=== PATIENT | female | born 1955 | race Caucasian/White ===

== ENCOUNTER → 2016-11-05 | Outpatient (CLI) | payer OTHER ==
[~2016-11-05] MED LIST: ASPI81TA28 PO; CALC500C3 PO; DICL-201 PO; EPP3/2 IM; ESOM20CA PO; ESTR0.5T3 PO; FLUT0.0529 NAE; HYDR-5688 PO; IBUP-103 PO; LOSA1TAB PO
--- NOTE | 2016-11-05 15:47 | MAMMOGRAPHY REPORT ---
UNILATERAL RIGHT DIGITAL DIAGNOSTIC MAMMOGRAM: 11/05/2016 CLINICAL HISTORY: 61-year-old woman called back from screening mammography for grouped microcalcific ations in the upper outer quadrant of the right breast. TECHNIQUE: Spot magnification right CC and ML views were obtained. COMPARISON: Comparison is made to exams dated: 10/23/2016 mammogram, 10/05/2015 mammogram, 4 mammogram, 09/08/2013 mammogram, 09/06/2012 mammogram, and 09/01/2011 mammogram - [facility]. BREAST COMPOSITION: There are scattered areas of fibroglandular density in the right breast. FINDINGS: There is a 4.2 mm grouping of faint amorphous microcalcifications in the upper outer midd le one third of the right breast. When comparing to prior available mammograms, these were not ruth rly identified on the 2014, 2013 or prior mammograms and they are therefore indeterminate. Definiti ve characterization with tissue sampling is recommended. No obvious associated mass or architectura l distortion. IMPRESSION: ACR BI-RADS CATEGORY 4B: INTERMEDIATE SUSPICION FOR MALIGNANCY Stereotactic guided biopsy is recommended for a faint 4 mm grouping of amorphous microcalcifications in the upper outer middle one third of the right breast. These results and recommendations were discussed with the patient at the time of the exam. She tent atively scheduled the biopsy prior to leaving our department. Approximately 10% of breast cancers are not detected with mammography. A negative mammographic repor t should not delay biopsy if a clinically suggestive mass is present. Coco Chavira M.D. ay/:11/05/2016 13:33:39 Cleaner [employer] Presser: Jenni LYNN)(Anthony), [facility] letter sent: Abnormal 4/5 BI-RADS Code: ACR BI-RADS Category 4B: Intermediate Suspicion For Malignancy
== END | disposition home or self-care (01) ==
LOC: C.MAMM 12:55
PROVIDERS: ATTEND Obstetrics & Gynecology
DX: R92.0 Mammographic microcalcification found on diagnostic imaging of breast (principal)

== ENCOUNTER → 2016-11-19 | Outpatient (CLI) | payer OTHER ==
--- NOTE | 2016-11-19 09:36 | Discharge Instructions ---
Discharge Instructions Procedure Procedure Date: Nov 19, 2016. Reason for visit: Right Calcs. Discharge Discharge Date: Nov 19, 2016. Discharge Diagnosis: status post breast biopsy Instructions Activity Recommendations: Additional Limitations (see below) Return to School/Work: no limitations Recommended Home Diet: No Limitations Provider Instructions: ACTIVITY RECOMMENDATIONS: * No lifting, pushing, pulling or exercising the affected side for three days. RETURN TO SCHOOL/WORK: * You may return to work/school after the procedure, but do not perform any strenuous activities for 24 to 48 hours. MEDICATIONS: * Tylenol (two 325 mg) every four to six hours if needed for mild pain (if not allergic to Tylenol). DIET: * Resume previous diet. SPECIAL CARE INSTRUCTIONS: * Keep biopsy site dry for 24 hours. May shower after 24 hours, but do not soak (bathe) incision. * May remove Tegaderm (plastic patch) tomorrow AFTER showering. * Leave the steri-strips on for one week. Allow the steri-strips to fall off by themselves. If not off after one week, you may remove them. You may place a Bandaid crosswise over the strips, if desired. * Apply ice 10 minutes on and 10 minutes off as needed. * Wear a bra at bedtime to sleep more comfortably for 2-3 days. * Your referring physician should have the results after approximately 5 to 7 business days. * Call for unusual bleeding, fever, drainage, etc or if you have any questions call during normal business hours or after hours call Dr Hedrick, [phone]. FOLLOW UP VISIT: Follow-up with Referring Physician as scheduled. Allergies Coded Allergies: CI Pigment Blue 63 (Unverified Allergy, Intermediate, unknown, 08/01/16) Cefuroxime (Unverified Allergy, Intermediate, unknown, 08/01/16) Duloxetine (Unverified Allergy, Intermediate, unknown, 08/01/16) Pravastatin (Unverified Allergy, Intermediate, muscle pain, 08/01/16) Codeine (Verified Allergy, Unknown, 08/01/16) Latex (Verified Allergy, Unknown, 08/01/16) Morphine (Unverified Allergy, Unknown, severe n/v, 08/01/16) Sulfa Drugs (Verified Allergy, Unknown, RASH, 08/01/16) Metoclopramide (Verified Adverse Reaction, Unknown, SEVERE MUSCLE SORENESS , 08/01/16) Uncoded Allergies: BEE STINGS (Allergy, Severe, ANAPHYLAXIS, 05/14/15) Guillermo Bartlett Recommendations: Call your doctor if: * Temperature above 101 degrees * Pain not relieved by pain medicine ordered * There is increased drainage or redness from any incision * You have any unanswered questions or concerns. Your Doctors Instructions noted above were prepared by provider Ramandeep Hedrick. Patient Signature Section: Patient Instructions Signature Page Kelley Witt Patient (or Guardian) Signature/Date: I have read and understand the instructions given to me by my caregivers. Caregiver/RN/Doctor Signature/Date: The above-named patient and/or guardian has received patient instructions on this date. + Original Patient Signature Page (only) stays with chart. Please make copy for patient.
--- NOTE | 2016-11-19 14:25 | MAMMOGRAPHY REPORT ---
UNILATERAL RIGHT DIGITAL DIAGNOSTIC MAMMOGRAM: 11/19/2016 CLINICAL HISTORY: Status post stereotactic biopsy of right upper-outer quadrant calcifications. TECHNIQUE: Postprocedural right CC and ML views were obtained. COMPARISON: Comparison is made to exams dated: 10/23/2016 mammogram, 10/05/2015 mammogram, 4 mammogram, 09/08/2013 mammogram, 09/06/2012 mammogram, and 09/01/2011 mammogram - [facility]. BREAST COMPOSITION: There are scattered areas of fibroglandular density in the right breast. FINDINGS: A new biopsy marker clip is seen at the site of the biopsied calcifications in the right upper outer quadrant. No significant postbiopsy hematoma is seen. IMPRESSION: POST PROCEDURE IMAGING FOR MARKER PLACEMENT New biopsy marker clip status post stereotactic biopsy of right upper outer quadrant calcifications. Pathology results are pending. Approximately 10% of breast cancers are not detected with mammography. A negative mammographic repor t should not delay biopsy if a clinically suggestive mass is present. Ramandeep Hedrick M.D. ah/:11/19/2016 09:46:12 Lane Attendant: Elle LYNN)(Anthony), [facility] BI-RADS Code: Post Procedure Imaging For Marker Placement
--- NOTE | 2016-11-19 14:25 | MAMMOGRAPHY REPORT ---
STEREOTACTIC GUIDED BIOPSY RIGHT BREAST: 11/19/2016 CLINICAL HISTORY: Indeterminate calcifications in the right upper outer quadrant. PATIENT CONSENT: The procedure, risks, benefits, and alternatives of stereotactic biopsy with clip p lacement were discussed with the patient, and verbal and written consent was obtained. A timeout wa s performed immediately prior to the procedure. PROCEDURE DESCRIPTION: With stereotactic guidance, aseptic technique, and lidocaine as a local anest hetic (1% lidocaine to anesthetize the skin and 1% lidocaine with epinephrine to anesthetize the andrez per tissues), the area of concern was sampled multiple times with a 9-gauge vacuum-assisted biopsy n eedle ([employer] Eviva). The path of approach was craniocaudal. The specimen radiograph demonstrates c alcifications to be present in the samples. A metallic marker clip was placed at the biopsy site. This was confirmed on postprocedure mammograms. Direct pressure was applied at the biopsy site and hemostasis was readily achieved. The patient tolerated the procedure without complication. She was given wound care instructions. COMPARISON: Comparison is made to exams dated: 11/05/2016 mammogram, 10/23/2016 mammogram, 10/05/2015 mammogram, 09/12/2014 mammogram, 09/08/2013 mammogram, and 09/06/2012 mammogram - [facility]. IMPRESSION: STEREOTACTIC GUIDED BIOPSY Stereotactic biopsy of indeterminate calcifications in the right upper outer quadrant, with clip john paul cement. The patient will receive pathology results from her referring physician. Ramandeep Hedrick M.D. /:11/19/2016 09:37:30 [employer] Lieutenant: Elle LYNN)(Anthony), [facility]
== END | disposition home or self-care (01) ==
LOC: C.MAMM 08:54
PROVIDERS: ATTEND Obstetrics & Gynecology
DX: N60.11 Diffuse cystic mastopathy of right breast (principal); R92.1 Mammographic calcification found on diagnostic imaging of breast

== ENCOUNTER → 2017-04-02 | Outpatient (CLI) | payer OTHER ==
[~2017-04-02] MED LIST changes: -HYDR-5688 PO
--- NOTE | 2017-04-02 13:50 | DIAGNOSTIC IMAGING REPORT ---
CT SCAN OF LUMBAR SPINE WITHOUT IV CONTRAST CLINICAL HISTORY: Disc herniation. Low back pain. Recent fall. COMPARISON STUDY: MRI of lumbar spine dated 09/15/2013 TECHNIQUE: CT scan of the lumbar spine is performed from the lower thoracic spine to the sacrum. Images are reviewed in the axial, sagittal, and coronal planes. IV contrast was not administered for this examination. CT DOSE: 869.06 mGy.cm FINDINGS: The skeletal structures are osteopenic. There is no evidence of fracture or malalignment. Vertebral body height and alignment are maintained throughout the lumbar spine. Tiny anterior osteophytes are seen throughout. The transverse and spinous processes are intact. There is no evidence of spondylolysis. No lytic or blastic lesions are seen. There is mild disc space narrowing at L4-L5. No large disc herniation is seen. There is a posterior disc bulge at L4-L5. This likely contributes to acquired compromise of the central canal. Tiny posterior disc bulges are also identified at L3-L4 and L5-S1. No significant facet arthropathy is identified. The visualized sacrum and bony pelvis appear intact. Mild sclerotic degenerative change is noted in the sacroiliac joints. The paraspinous soft tissues are within normal limits. The partially imaged retroperitoneal structures are grossly unremarkable but incompletely evaluated. IMPRESSION: 1. There is no evidence of fracture or malalignment involving the lumbosacral spine. 2. No large disc herniation is identified. 3. There is a broad-based posterior disc bulge at L4-L5 which likely contributes to acquired compromise of the central canal. This is likely similar to the 09/15/2013 MRI. Dictated: 04/02/2017 1:12 PM Transcribed: 04/02/2017 1:50 PM JULIAN_Toro Electronically signed by: Meliton Escoto M.D. 04/02/2017 2:20 PM Dictated Date/Time: 04/02/2017 1:12 PM
== END | disposition home or self-care (01) ==
LOC: C.CTS 12:51
PROVIDERS: ATTEND Orthopaedic Surgery Orthopaedic Surgery of the Spine
DX: M51.26 Other intervertebral disc displacement, lumbar region (principal)

== ENCOUNTER → 2017-05-07 | Outpatient (CLI) | payer OTHER ==
--- NOTE | 2017-05-07 09:56 | DIAGNOSTIC IMAGING REPORT ---
MRI OF THE LEFT SHOULDER CLINICAL HISTORY: 62-year-old female with left shoulder pain, clinical concern for rotator cuff tear. TECHNIQUE: Multisequence, multiplanar MR imaging of the left shoulder was performed without the use of intravenous contrast. COMPARISON: None. FINDINGS: Osseous structures: No bone marrow edema. Rotator cuff: Vague increased signal in less than 50% of the thickness of the anterior aspect of the infraspinatus tendon at the footplate that approaches the articular surface, likely tendinopathy. The supraspinatus tendon is preserved. Cystic change noted in the humeral head medial to the insertion site of the infraspinatus. Teres minor and subscapularis tendons intact. No subacromial or subdeltoid bursal fluid. Biceps tendon: Long head of the biceps normal in signal intensity and position within the bicipital groove. Normal origin at the supraglenoid tubercle. Labrum: The anterior superior labrum appears diminutive with relatively thick middle glenohumeral ligament suggestive of a Isacc complex versus chronic degeneration. Shoulder joint: No joint effusion. Articular cartilage maintained. Acromioclavicular joint: Normal. Soft tissues: Normal muscle bulk and signal intensity. No muscle atrophy. IMPRESSION: 1. Mild tendinopathy of the infraspinatus tendon at the foot plate. No evidence of full-thickness rotator cuff tear. Electronically signed by: Marco A Reaves 05/07/2017 9:54 AM Dictated Date/Time: 05/07/2017 9:13 AM
== END | disposition home or self-care (01) ==
LOC: C.MRIBC 07:55
PROVIDERS: ATTEND Orthopaedic Surgery
DX: M25.512 Pain in left shoulder (principal)

== ENCOUNTER → 2017-06-11 | Outpatient (CLI) | payer OTHER ==
--- NOTE | 2017-06-11 14:36 | DIAGNOSTIC IMAGING REPORT ---
MRI LUMBAR SPINE W/O CONTRAST CLINICAL HISTORY: Low back pain with bilateral leg radiculopathy. Trauma. TECHNIQUE: Sagittal and axial T1, T2 and STIR images were obtained. COMPARISON STUDY: CT scan dated 04/02/2017, MRI dated 09/15/2013 OBSERVATIONS: The vertebral bodies and posterior elements appear intact. There is no abnormal bony signal present to suggest a marrow replacement process. L1-2: No disc protrusions or extrusions. No evidence of spinal canal or neural foraminal compromise. L2-3: No disc protrusions or extrusions. No evidence of spinal canal or neural foraminal compromise. L3-4: No disc protrusions or extrusions. No evidence of spinal canal or neural foraminal compromise. L4-5: There is a very small broad-based central disc protrusion. Post laminectomy changes are visualized. There is no significant spinal or foraminal stenosis L5-S1: No disc protrusions or extrusions. No evidence of spinal canal or neural foraminal compromise. The conus medullaris and cauda equina appear normal. IMPRESSION: 1. Very small broad-based central disc protrusion at the L4-5 level 2. Interval posterior laminectomy at the L4-5 level. 3. No evidence of significant spinal or foraminal stenosis. Electronically signed by: Mendoza Dominguez M.D. 06/11/2017 2:35 PM Dictated Date/Time: 06/11/2017 2:30 PM
== END | disposition home or self-care (01) ==
LOC: C.MRI 13:31
PROVIDERS: ATTEND Orthopaedic Surgery Orthopaedic Surgery of the Spine
DX: M48.06 Spinal stenosis, lumbar region (principal); M51.26 Other intervertebral disc displacement, lumbar region

== ENCOUNTER → 2017-07-16 | Outpatient (CLI) | payer OTHER ==
--- NOTE | 2017-07-16 11:02 | DIAGNOSTIC IMAGING REPORT ---
RIGHT FOOT MIN 3 VIEWS ROUTINE CLINICAL HISTORY: 62 years-old Female presenting with ACUTE FOOT PAIN RIGHT Right. TECHNIQUE: Frontal, oblique, and lateral views the right foot were obtained. COMPARISON: 08/20/2016. FINDINGS: Os peroneum and accessory navicular noted. No acute fracture or malalignment. Regional soft tissues within normal limits. Prominent bone spur at the inferior calcaneus. No other significant degenerative changes evident. IMPRESSION: 1. No acute osseous injury. 2. Prominent enthesophyte at the origin of the plantar fascia. Electronically signed by: Marco A Reaves M.D. 07/16/2017 11:01 AM Dictated Date/Time: 07/16/2017 10:59 AM
--- NOTE | 2017-07-16 11:05 | DIAGNOSTIC IMAGING REPORT ---
RIGHT ANKLE MIN 3 VIEWS ROUTINE CLINICAL HISTORY: Right ankle pain. COMPARISON: Right foot radiographs August 20, 2016. FINDINGS: Alignment of the right ankle is anatomic. There is no fracture or suspicious lesion. Talar dome is intact. There is moderate posterior and plantar calcaneal spurring. IMPRESSION: 1. No acute fracture or dislocation of the right ankle. 2. Moderate posterior and plantar calcaneal spurring. Electronically signed by: Dontrell Sumner M.D. 07/16/2017 11:03 AM Dictated Date/Time: 07/16/2017 11:01 AM
== END | disposition home or self-care (01) ==
LOC: C.RAD1850 10:23
PROVIDERS: ATTEND Internal Medicine
DX: M79.671 Pain in right foot (principal); M77.31 Calcaneal spur, right foot

== ENCOUNTER → 2017-09-10 | Outpatient (CLI) | payer OTHER ==
--- NOTE | 2017-09-10 15:57 | DIAGNOSTIC IMAGING REPORT ---
LEFT UPPER ARM MRI CLINICAL HISTORY: BICEP STRAIN, LEFTarm pain. COMPARISON STUDY: Left humerus 09/02/2017. Left shoulder MRI 05/07/2017. FINDINGS: Normal marrow signal intensity seen within the left humerus. No fracture or dislocation. Normal signal intensity within the soft tissues of the left upper arm. No edema to suggest an acute traumatic process. The proximal and distal biceps tendons appear to be normal in course, caliber, and signal intensity. IMPRESSION: No acute traumatic process within the left upper arm. Specifically, the biceps tendons appear intact. Electronically signed by: Marcial Lopez M.D. 09/10/2017 3:55 PM Dictated Date/Time: 09/10/2017 3:51 PM
== END | disposition home or self-care (01) ==
LOC: C.MRIBC 14:25
PROVIDERS: ATTEND Orthopaedic Surgery
DX: S46.212A Strain of muscle, fascia and tendon of other parts of biceps, left arm, initial encounter (principal); X58.XXXA Exposure to other specified factors, initial encounter

== ENCOUNTER → 2017-10-27 | Outpatient (CLI) | payer OTHER | END | disposition home or self-care (01) | LOC: C.LABBFT 14:27 | PROVIDERS: ATTEND Internal Medicine | DX: R35.0 Frequency of micturition (principal) ==

== ENCOUNTER → 2017-11-10 | Outpatient (CLI) | payer OTHER ==
--- NOTE | 2017-11-11 15:29 | MAMMOGRAPHY REPORT ---
BILATERAL DIGITAL SCREENING MAMMOGRAM TOMOSYNTHESIS WITH CAD: 11/10/2017 CLINICAL HISTORY: Routine screening. Patient has no complaints. TECHNIQUE: Breast tomosynthesis in addition to standard 2D mammography was performed. Current study was also evaluated with a Computer Aided Detection (CAD) system. COMPARISON: Comparison is made to exams dated: 11/05/2016 mammogram, 10/23/2016 mammogram, 10/05/2015 m ammogram, 09/12/2014 mammogram, 09/08/2013 mammogram, and 09/06/2012 mammogram - [facility]. BREAST COMPOSITION: There are scattered areas of fibroglandular density in both breasts. FINDINGS: No new suspicious mass, architectural distortion or cluster of microcalcifications is seen . There is a stable biopsy marker clip in the 9:00 right breast, denoting the area of prior benign s tereotactic biopsy. IMPRESSION: ACR BI-RADS CATEGORY 1: NEGATIVE There is no mammographic evidence of malignancy. A 1 year screening mammogram is recommended. The pa tient will receive written notification of the results. Approximately 10% of breast cancers are not detected with mammography. A negative mammographic report should not delay biopsy if a clinically suggestive mass is present. Coco Chavira M.D. ay/:11/10/2017 15:42:53 Hospital Administrator: Lauren LYNN)(M), [facility] letter sent: Normal 1/2 BI-RADS Code: ACR BI-RADS Category 1: Negative
== END | disposition home or self-care (01) ==
LOC: C.MAMM 10:46
PROVIDERS: ATTEND Obstetrics & Gynecology
DX: Z12.31 Encounter for screening mammogram for malignant neoplasm of breast (principal)

== ENCOUNTER → 2017-12-23 | Outpatient (CLI) | payer OTHER | END | disposition home or self-care (01) | LOC: C.LABSPEC 18:25 | PROVIDERS: ATTEND Internal Medicine | DX: R30.0 Dysuria (principal) ==

== ENCOUNTER → 2017-12-24 | Outpatient (CLI) | payer OTHER ==
--- NOTE | 2017-12-24 10:58 | DIAGNOSTIC IMAGING REPORT ---
KUB CLINICAL HISTORY: R10.9 Flank [id number] pain COMPARISON STUDY: No previous studies for comparison. FINDINGS: The soft tissues, psoas shadows, renal outlines and intestinal gas pattern appear normal. There is no evidence for bowel obstruction. No abnormal abdominal calcifications are seen. Several paravertebral and soft tissue pelvic vascular calcifications are present. Nonobstructive bowel pattern. Prior cholecystectomy. IMPRESSION: No acute process. The above report was generated using voice recognition software. It may contain grammatical, syntax or spelling errors. Electronically signed by: Saw Fox M.D. 12/24/2017 10:56 AM Dictated Date/Time: 12/24/2017 10:56 AM
== END | disposition home or self-care (01) ==
LOC: C.RAD1850 10:39
PROVIDERS: ATTEND Physician Assistant Medical
DX: R10.9 Unspecified abdominal pain (principal)

== ENCOUNTER → 2017-12-31 | Outpatient (CLI) | payer OTHER | END | disposition home or self-care (01) | LOC: C.PAPS 09:17 | PROVIDERS: ATTEND Obstetrics & Gynecology | DX: Z12.4 Encounter for screening for malignant neoplasm of cervix (principal) ==

== ENCOUNTER → 2018-03-05 | Day surgery (SDC) | payer OTHER ==
[2018-01-28 10:51] VITALS: BMI 31.0
--- NOTE | 2018-01-28 11:38 | PAT Medication Instructions ---
Service Date Jan 28, 2018. Current Home Medication List Albuterol Hfa (Ventolin Hfa), 2 PUFFS INH Q6H PRN for PRN Aspirin (Aspirin Ec), 81 MG PO DAILY Calcium Carbonate (Tums), 1 TAB PO HS Epinephrine (Epipen), 0.3 MG IM UD Esomeprazole Magnesium (Nexium), 20 MG PO QPM Estradiol (Estradiol), 1 TAB PO DAILY Fluticasone Propionate (Nasal) (Flonase Allergy Relief), 2 SPRAYS INTNAS PRN Ibuprofen Tab (Advil), 400 MG PO PRN Losartan Potassium (Cozaar), 50 MG PO QPM Naproxen (Aleve), 440 MG PO PRN [Estriadiol Cream], 1 DOSE TOP PRN Medication Instructions For Your Scheduled Surgery -Continue as directed: Epinephrine (Epipen), 0.3 MG IM UD -Contact your surgeon for instructions for: Ibuprofen Tab (Advil), 400 MG PO PRN Naproxen (Aleve), 440 MG PO PRN Aspirin (Aspirin Ec), 81 MG PO DAILY - Hold the following medications 24 hours prior to surgery: [Estriadiol Cream], 1 DOSE TOP PRN Losartan Potassium (Cozaar), 50 MG PO QPM - Take the following medications the morning of surgery with a sip of water: Albuterol Hfa (Ventolin Hfa), 2 PUFFS INH Q6H PRN for PRN (if needed, and bring it with you to the hospital) Fluticasone Propionate (Nasal) (Flonase Allergy Relief), 2 SPRAYS INTNAS PRN ( if needed) - Take the following medications as scheduled the night before surgery: Albuterol Hfa (Ventolin Hfa), 2 PUFFS INH Q6H PRN for PRN (if needed) Calcium Carbonate (Tums), 1 TAB PO HS Esomeprazole Magnesium (Nexium), 20 MG PO QPM Fluticasone Propionate (Nasal) (Flonase Allergy Relief), 2 SPRAYS INTNAS PRN ( if needed) Estradiol (Estradiol), 1 TAB PO DAILY If you have any questions please call us at [phone] or [phone] or [phone]
[2018-01-28 12:35] LABS: BASO % 0.4 %; BASO ABS # 0.03 K/uL (0-0.2); EOS % 1.2 %; EOS ABS # 0.09 K/uL (0-0.5); HEMATOCRIT 40.6 % (37-47); HEMOGLOBIN 13.9 g/dL (12.0-16.0); IG# 0.03 K/uL (0.00-0.02); LYMPH % 27.4 %; LYMPH ABS # 2.13 K/uL (1.2-3.4); MEAN CELL VOLUME 92.1 fL (80-100); MEAN CORPUSCULAR HEMOGLOBIN 31.5 pg (25-34); MEAN CORPUSCULAR HGB CONC 34.2 g/dl (32-36); MEAN PLATELET VOLUME 9.9 fL (7.4-10.4); MONO % 6.3 %; MONO ABS # 0.49 K/uL (0.11-0.59); NEUT % 64.3 %; PLATELET COUNT 259 K/uL (130-400); RED CELL DISTRIBUTION WIDTH CV 13.4 % (11.5-14.5); RED CELL DISTRIBUTION WIDTH SD 45.1 fL (36.4-46.3); WHITE BLOOD COUNT 7.77 K/uL (4.8-10.8)
[2018-01-28 12:43] LABS: PTT PATIENT 24.1 SECONDS (21.0-31.0)
[2018-01-28 13:39] LABS: ALBUMIN 3.6 gm/dl (3.4-5.0); CALCIUM 9.1 mg/dl (8.5-10.1); CREATININE 0.77 mg/dl (0.60-1.20); POTASSIUM 3.9 mmol/L (3.5-5.1)
--- NOTE | 2018-03-04 15:34 | History and Physical ---
History & Physical Date March 04, 2018. Chief Complaint right ankle pain History of Present Illness The patient is a 63 year old female with complaints of chronic right lateral ankle pain. She was treated conservatively for peroneal tendinitis and sural nerve neuropraxia. She failed conservative management and is now being set up for surgical tx. Past Medical/Surgical History Medical Problems: (1) Bronchitis (2) Emphysema of lung (3) Pneumonia (4) HTN (5) High cholesterol (6) Acid Reflux (7) Obesity Social Hx: Denies alcohol and tobacco use Past surgical hx: Cholecystectomy, hernia repair, left knee surgery, sinus surgery, Hysterectomy Allergies Coded Allergies: CI Pigment Blue 63 (Unverified Allergy, Intermediate, unknown, 01/28/18) Cefuroxime (Unverified Allergy, Intermediate, unknown, 01/28/18) Duloxetine (Unverified Allergy, Intermediate, unknown, 01/28/18) Pravastatin (Unverified Allergy, Intermediate, muscle pain, 01/28/18) Codeine (Verified Allergy, Unknown, SHORTNESS OF BREATH, 01/28/18) Latex (Verified Allergy, Unknown, SHORTNESS OF BREATH,MOUTH GOT RED WITH DENTAL WORK/GLOVES, 01/28/18) Morphine (Unverified Allergy, Unknown, severe n/v, 01/28/18) Sulfa Drugs (Verified Allergy, Unknown, RASH, 01/28/18) Tetanus Toxoid (Verified Allergy, Unknown, LUMP ON ARM AFTER INJECTION, ) [place] (Verified Allergy, Unknown, ANAPHYLAXIS, 01/28/18) Metoclopramide (Verified Adverse Reaction, Unknown, SEVERE MUSCLE SORENESS , 01/28/18) Home Medications Scheduled Aspirin (Aspirin Ec), 81 MG PO DAILY Calcium Carbonate (Tums), 1 TAB PO HS Epinephrine (Epipen), 0.3 MG IM UD Esomeprazole Magnesium (Nexium), 20 MG PO QPM Estradiol (Estradiol), 1 TAB PO DAILY Fluticasone Propionate (Nasal) (Flonase Allergy Relief), 2 SPRAYS INTNAS PRN Ibuprofen Tab (Advil), 400 MG PO PRN Losartan Potassium (Cozaar), 50 MG PO QPM Naproxen (Aleve), 440 MG PO PRN [Estriadiol Cream], 1 DOSE TOP PRN Scheduled PRN Albuterol Hfa (Ventolin Hfa), 2 PUFFS INH Q6H PRN for PRN Physical Examination Skin: warm/dry, no rash Eyes: normal inspection ENT: normal ENT inspection Head: normocephalic Neck: supple, no adenopathy, trachea midline Respiratory/Chest: lungs clear, normal breath sounds, no respiratory distress Cardiovascular: regular rate, rhythm Abdomen / GI: normal bowel sounds, non tender Extremities: + pertinent finding (Right ankle: Tender along the peroneal tendons and along the sural nerve with radiating pain to the lateral ankle. 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 All potential risks, benefits, complications, alternatives, and rehab have been discussed with the patient and she wishes to proceed. She will be scheduled for 5 with probable ASA 81 mg BID x 2-3 wks for DVT prophylaxis.
[~2018-03-05] VITALS: Ht 167.6 cm; Wt 88.1 kg
[~2018-03-05] MED LIST changes: +ATROPINE SULFATE 0.1 MG/ML 5ML SYR IV PRN; +BACITRACIN 50000 UNIT VIAL ONE; +BUPIVACAINE 0.25% 30 ML VIAL ONE; +BUPIVACAINE 0.5 % 5 MG/1 ML PF 10ML VIAL ONE; +CEFAZOLIN SOD 2000MG/15 ML IV PUSH ONE; +DEXAMETHASONE SOD INJ 4 MG/ML VIAL ONE; -DICL-201 PO; +EpHEDrine SULFATE INJ 50 MG/ML AMP IV PRN; +EpINEphrine INJ 1MG/ML AMP 1 MG/ML AMP ONE; +FENTANYL CITRATE INJ 50 MCG/1 ML 2 ML VIAL IV PRN; +FENTANYL CITRATE INJ 50 MCG/1 ML 2 ML VIAL ONE; -FLUT0.0529 NAE; +FLUT0.15 INTNAS; +HYDR-5688 PO; +HYDROCODONE/ACETAMIN 5/325MG TAB PO PRN; +HYDROmorphone INJ 2 MG/ML SYR/VIAL IV PRN; +LACTATED RINGER'S 1000ML 1,000 ML IV SCH; +MIDAZOLAM HCL 1 MG/ML 2ML VIAL ONE; +NAPR1TAB9 PO; +NURSING VERBAL MED ORDER ONE; +ONDANSETRON INJ 2 MG/ML 2 ML VIAL IV PRN; +PROMETHAZINE HCL INJ 6.25 MG in SODIUM CHLORIDE 0.9% 50ML 50 ML IV PRN; +SODIUM CHLORIDE 0.9% INJ 10 ML VIAL ONE; +VNTHFA/IN INH; +[UNRECOGNIZED DRUG - OTHER] TOP
[2018-03-05 06:53] VITALS: BP 166/96; PULSE 79; TEMP 36.6; O2SAT 95; Ht 167.6 cm; Wt 88.1 kg
--- NOTE | 2018-03-05 07:13 | History & Physical Bridge Note ---
H&P Re-Evaluation Bridge Note: I have examined the patient, reviewed the History & Physical and in the interval since the performance of the History & Physical I have noted the following changes of clinical significance: No changes noted
--- NOTE | 2018-03-05 09:20 | [facility] Post Operative Brief Note ---
Immediate Operative Summary Operative Date March 05, 2018. Pre-Operative Diagnosis Right ankle sural neuropraxia, Right peroneal tendon tenosynovitis Post-Operative Diagnosis Right ankle sural nerve compressive neuropathy, Right peroneal tendon tenosynovitis Procedure(s) Performed 1. Right Ankle Open Decompression and Neurolysis Sural Nerve, 2. Open Debridement and Tenosynovectomy Peroneal tendons Surgeon Dr. Yvonne Hanna Break Up Worker Surgeon(s) Wellington Pichardo PA-C Estimated Blood Loss 1 cc Findings Consistent with Post-Op Diagnosis Specimens none per surgeon Drains None Anesthesia Type MAC Spinal Regional Complication(s) none Disposition Accompanied Pt To Recover: no Disposition: Recovery Room / PACU
--- NOTE | 2018-03-05 09:53 | Discharge Instructions ---
Discharge Instructions Date of Service March 05, 2018. Visit Reason for Visit: Right Ankle Sural Nerve, Right Ankle Tenosynovitis Discharge Discharge Diagnosis / Problem: Right ankle sural nerve compressive neuropathy, Right peroneal tendon Discharge Goals Goal(s): Decrease discomfort, Improve function Activity Recommendations Activity Limitations: per Instructions/Follow-up section Weightbearing Status: Right non-weightbearing Anesthesia . Post Anesthesia Instructions: If you have had General Anesthesia or IV Sedation: * Do not drive today. * Resume driving when surgeon permits. * Do not make important decisions or sign legal documents today. * Call surgeon for: 1. Temperature elevations greater than 101 degrees F. 2. Uncontrollable pain. 3. Excessive bleeding. 4. Persistent nausea and vomiting. 5. Medication intolerance (nausea, vomiting or rash). * For nausea and vomiting use only clear liquids such as: tea, soda, bouillon until nausea subsides, then gradually increase diet as tolerated. * If you have any concerns or questions, call your surgeon's office. If physician is unavailable and it is an emergency, call 911 or go to the nearest emergency room. . Instructions / Follow-Up Instructions / Follow-Up ACTIVITY RECOMMENDATIONS: Limitations: Nonweightbearing on the right foot until seen back in the office. SPECIAL CARE INSTRUCTIONS: * Some drainage onto the dressing is normal and is no cause for alarm. * Some swelling is natural especially after walking. * When resting, keep your foot elevated above the level of your heart. * Call [facility] if you notice: -Increased drainage -Fever over 101 degrees F -Severe constant pain BANDAGE: * Leave bandage/cast in place unless otherwise directed. * Keep bandage/cast dry at all times. FOLLOW UP VISIT WITH DR. MARTINEZ If appointment is not already scheduled: Please call [facility] after you get home today to schedule a follow-up appointment for 10-[address] Martinez at . Diet Recommendations Recommended Home Diet: resume previous diet Procedures Procedures Performed: 1. Right Ankle Open Decompression and Neurolysis Sural Nerve, 2. Open Debridement and Tenosynovectomy Peroneal tendons Pending Studies Studies pending at discharge: no Medical Emergencies . Who to Call and When: Medical Emergencies: If at any time you feel your situation is an emergency, please call 911 immediately. . Non-Emergent Contact Non-Emergency issues call your: Surgeon Call Non-Emergent contact if: temperature is above 101.5, your pain is not controlled, your pain is worsening, wound has increased drainage, wound has increased redness . . "Provider Documentation" section prepared by Wellington Pichardo. . [place] Drug Monitoring Program Search Results: patient reviewed within database, no issues identified
--- NOTE | 2018-03-05 10:24 | Anesthesiology Progress Note ---
Anesthesia Post Op Note Date & Time March 05, 2018 at 10:23 Vital Signs Pain Intensity: 0 Vital Signs Past 12 Hours Date Time Temp Pulse Resp B/P (MAP) Pulse Ox O2 Delivery O2 Flow Rate FiO2 03/05/18 10:15 36.3 64 16 133/86 100 Room Air 03/05/18 10:05 36.3 69 16 144/76 100 Room Air 03/05/18 09:55 67 16 125/75 100 Oxymask 10 03/05/18 09:45 82 16 153/87 100 Oxymask 10 03/05/18 09:39 36.3 88 16 148/82 97 Oxymask 10 03/05/18 06:53 36.6 79 20 166/96 (119) 95 Room Air Notes Mental Status: alert / awake / arousable, participated in evaluation Pt Amnestic to Procedure: Yes Nausea / Vomiting: adequately controlled Pain: adequately controlled Airway Patency, RR, SpO2: stable & adequate BP & HR: stable & adequate Hydration State: stable & adequate Neuraxial Anesthesia: was administered, sensory block is resolving Anesthetic Complications: no major complications apparent Patient had a headache improved by ibuprofen
--- NOTE | 2018-03-05 12:54 | OPERATIVE REPORT ---
DATE OF OPERATION: 03/05/2018 PREOPERATIVE DIAGNOSES: 1. Right peroneal tenosynovitis of the peroneus longus and the peroneus brevis. 2. 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 POSTOPERATIVE DIAGNOSIS: Same as above. PROCEDURE: 1. Right debridement and tenosynovectomy of the peroneus longus and peroneus brevis tendons. 2. Right sural nerve decompression and neurolysis. SURGEON: Emilio Hanna DO HEALTH SPA MANAGER: Wellington DE JESUS ANESTHESIA: Spinal with popliteal block. SPECIMENS: None. DRAINS: None. COMPLICATIONS: None. BLOOD LOSS: 1 mL. PERTINENT HISTORY: This is a 63-year-old female who had at least 2 falls involving her right leg. After that time, she developed severe pain, numbness and burning along the lateral aspect of her foot and ankle. She had multiple studies performed including EMG nerve conduction study. She attempted and failed conservative management of all sorts including anti-inflammatories, rest, use of a boot brace, use of a lace-up brace, physical therapy, physician directed home exercises, observation, topical creams and anti-inflammatories. She had continued discomfort. Had an MRI and was noted to have a compressive neuropathy of the sural nerve and tenosynovitis of the peroneal tendons. She was then scheduled for surgery as indicated. All potential risks, benefits, complications, alternatives, rehab, potential for incomplete relief of symptoms, need for further surgery, DVT, PE, , persistent pain, swelling, scarring, weakness, neurovascular injury, wound complications were discussed with the patient. The patient decided to proceed with the procedure as indicated. PROCEDURE: The patient was administered a popliteal block and a spinal anesthetic. She was taken to the operative suite, placed supine on the operating room table. After review of the consent and identification of proper operative site, the patient was sedated. A tourniquet was placed high on the right thigh over cast padding. Right lower extremity was then sterilely prepped and draped in usual fashion, elevated and exsanguinated with Esmarch bandage, tourniquet inflated to 350 mmHg. Next, a 15 blade scalpel was used to make an incision over the peroneal tendon sheath proximal to the lateral malleolus extending distally almost to the base of the fifth metatarsal. The incision was deepened through the subcutaneous tissue. Meticulous hemostasis was achieved with cautery. There was noted to be a leash of veins and fibrous tissue overlying the sural nerve. Sural nerve decompression and neurolysis was then performed with tenotomy scissors in removing all soft tissue impingement over the sural nerve from approximately 12 cm proximal to the tip of the lateral malleolus until the base of the fifth metatarsal by bolus use of tenotomy scissors and digital decompression. The nerve was noted to be intact and viable. The impinging veins were cauterized and the main trunk of the peroneal vein was then retracted and protected. The peroneal tendon sheath was then incised with a 15 blade scalpel, revealing the peroneal tendons encased in a significant amount of hypertrophic tenosynovium. At this point, tenosynovectomy was then performed with tenotomy scissors and forceps from both the peroneus longus and peroneus brevis tendons. Tendons were then retracted from the tendon sheath and examined and noted to be intact. There was no tearing of the peroneus longus. There is minor scuffing of the peroneus brevis, this was then debrided with the tenotomy scissor. The tendon was then placed back in the tendon sheath. The wound was copiously irrigated with sterile normal saline. The tendon sheath was then closed using 2-0 Vicryl sutures. The sural nerve was noted to be free with no impingement. The dermis was closed using buried interrupted 3-0 Vicryl and skin was closed using 4-0 nylon sutures. Sterile compressive dressing and bulky splint was applied in neutral dorsiflexion. Once the splint was set, the tourniquet was released. The patient was awakened and taken to recovery in stable condition. I attest to the content of the Intraoperative Record and any orders documented therein. Any exception s are noted below.
[2018-03-05 14:15] VITALS: BP 145/82; PULSE 82; TEMP 36.5; O2SAT 95
== END | disposition home or self-care (01) ==
LOC: C.ACU 06:28
PROVIDERS: ATTEND Orthopaedic Surgery Sports Medicine
DX: M65.871 Other synovitis and tenosynovitis, right ankle and foot (principal); G57.81 Other specified mononeuropathies of right lower limb; J45.909 Unspecified asthma, uncomplicated; I10 Essential (primary) hypertension; Z88.8 Allergy status to other drugs, medicaments and biological substances; Z88.2 Allergy status to sulfonamides; Z88.5 Allergy status to narcotic agent; Z88.7 Allergy status to serum and vaccine; Z91.040 Latex allergy status; Z90.49 Acquired absence of other specified parts of digestive tract; E66.9 Obesity, unspecified; Z98.890 Other specified postprocedural states; Z90.710 Acquired absence of both cervix and uterus; Z79.82 Long term (current) use of aspirin

== ENCOUNTER → 2018-06-15 | Outpatient (CLI) | payer OTHER ==
[~2018-06-15] MED LIST changes: -ATROPINE SULFATE 0.1 MG/ML 5ML SYR IV PRN; -BACITRACIN 50000 UNIT VIAL ONE; -BUPIVACAINE 0.25% 30 ML VIAL ONE; -BUPIVACAINE 0.5 % 5 MG/1 ML PF 10ML VIAL ONE; -CEFAZOLIN SOD 2000MG/15 ML IV PUSH ONE; -DEXAMETHASONE SOD INJ 4 MG/ML VIAL ONE; -EpHEDrine SULFATE INJ 50 MG/ML AMP IV PRN; -EpINEphrine INJ 1MG/ML AMP 1 MG/ML AMP ONE; -FENTANYL CITRATE INJ 50 MCG/1 ML 2 ML VIAL IV PRN; -FENTANYL CITRATE INJ 50 MCG/1 ML 2 ML VIAL ONE; -HYDROCODONE/ACETAMIN 5/325MG TAB PO PRN; -HYDROmorphone INJ 2 MG/ML SYR/VIAL IV PRN; -LACTATED RINGER'S 1000ML 1,000 ML IV SCH; -MIDAZOLAM HCL 1 MG/ML 2ML VIAL ONE; -NURSING VERBAL MED ORDER ONE; -ONDANSETRON INJ 2 MG/ML 2 ML VIAL IV PRN; -PROMETHAZINE HCL INJ 6.25 MG in SODIUM CHLORIDE 0.9% 50ML 50 ML IV PRN; -SODIUM CHLORIDE 0.9% INJ 10 ML VIAL ONE
[2018-06-15 13:00] LABS: BLOOD UREA NITROGEN 12 mg/dl (7-18); CREATININE 0.82 mg/dl (0.60-1.20); GLUCOSE 140 mg/dl (70-99)
[2018-06-15 13:01] LABS: ALBUMIN 3.5 gm/dl (3.4-5.0); ALKALINE PHOSPHATASE 76 U/L (45-117); ALT/SGPT 20 U/L (12-78); AST/SGOT 18 U/L (15-37); CALCIUM 8.7 mg/dl (8.5-10.1); CARBON DIOXIDE 27 mmol/L (21-32); CHOLESTEROL 229 mg/dl (0-200); LDL CHOLESTEROL CALCULATED 157 mg/dl; POTASSIUM 4.2 mmol/L (3.5-5.1); SODIUM 137 mmol/L (136-145); TOTAL PROTEIN 7.1 gm/dl (6.4-8.2)
== END | disposition home or self-care (01) ==
LOC: C.LABBFT 09:44
PROVIDERS: ATTEND Internal Medicine
DX: E11.9 Type 2 diabetes mellitus without complications (principal); Z00.00 Encounter for general adult medical examination without abnormal findings; E78.5 Hyperlipidemia, unspecified; I10 Essential (primary) hypertension; Z11.59 Encounter for screening for other viral diseases

== ENCOUNTER 2022-07-05 14:49 | Observation (INO) ==
[2022-07-05] MEDS ORDERED: NITROGLYCERIN 2% OINTMENT 30GM TUBE EXT STA (15:44)
[2022-07-05] MEDS ORDERED: ASPIRIN CHEW 324 MG PO STA (15:44)
[2022-07-05 15:53] LABS: Basophils # (auto) 0.03 K/uL (0-0.2); Basophils % (auto) 0.4 %; Eosinophils # (auto) 0.07 K/uL (0-0.50); Eosinophils % (auto) 0.8 %; Hematocrit (blood only) 40.2 % (34.1-44.9); Hemoglobin 13.5 g/dl (12.0-16.0); Immature Granulocytes # (auto) 0.04 K/uL (0.00-0.02); Immature Granulocytes % (auto) 0.5 %; Lymphocytes # (auto) 2.62 K/uL (1.2-3.4); Lymphocytes % (auto) 30.9 %; Mean Corpuscular Hemoglobin 32.5 pg (25.0-34.0); Mean Corpuscular Hgb Conc 33.6 g/dL (32.0-36.0); Mean Corpuscular Volume 96.9 fL (80.0-100.0); Mean Platelet Volume 10.1 fL (9.4-12.3); Monocytes # (auto) 0.71 K/uL (0.24-0.82); Monocytes % (auto) 8.4 %; Platelet Count 278 K/uL (130-400); RDW Coefficient of Variation 12.9 % (11.5-14.5); RDW Standard Deviation 46.1 fL (36.4-46.3); Red Blood Count 4.15 M/uL (3.93-5.22); White Blood Count 8.47 K/ul (4.8-10.8)
[2022-07-05 16:06] LABS: D Dimer 500 ug/L FEU (0-500)
[2022-07-05 16:09] LABS: Albumin Globulin Ratio 1.4 (0.9-2); Albumin Level 4.2 gm/dl (3.4-5.0); BUN Creatinine Ratio 14.1 (10-20); Bilirubin,Total 0.5 mg/dl (0.2-1.0); Calcium 9.6 mg/dl (8.5-10.1); Creatinine Clr Calc Pharmacy 68.9 ml/min; Est GFR (African American) 81.6 ml/min; Est GFR (Non-African American) 70.4 ml/min; Potassium 3.7 mmol/L (3.5-5.1); Total Protein 7.2 gm/dl (6.0-8.3)
--- NOTE | 2022-07-05 16:23 | XRay Report ---
XR chest 1V portable HISTORY: Atypical Chest Pain COMPARISON: Chest 12/06/2021. FINDINGS: No pneumothorax. No pleural effusions. The cardiac silhouette remains mildly enlarged. Smal l left basilar linear densities favor subsegmental atelectasis or scarring. Otherwise, no focal lung consolidations to suggest pneumonia. No evidence for pulmonary edema. IMPRESSION: Stable mild cardiomegaly. Otherwise, no acute process within the chest. ACT 112: Negative or not required by law. Electronically signed by: Marcial Lopez M.D. 07/05/2022 4:22 PM
[2022-07-05 17:15] LABS: Troponin I High Sensitivity 3.2 pg/ml (0-14)
[2022-07-05] MEDS ORDERED: ONDANSETRON INJ 2 MG/ML 2 ML VIAL IV STA (17:57)
[2022-07-05] MEDS ORDERED: HYDROmorphone INJ 0.5 MG/0.5 ML SYR IV STA (17:57)
--- NOTE | 2022-07-05 18:00 | History & Physical Report ---
Date of Service July 05, 2022 Assessment & Plan (1) Chest pain: Plan: - Onset around 2 PM this afternoon with radiation down left arm, left face, and back. With associated shortness of breath. - Pain is stabbing, lasts for several seconds. Improved but not resolved with aspirin and nitro, pain subsequently improved with hydromorphone 0.25 - Troponin on admission negative @ 3.2, 2-hour repeat troponin 3.0 - EKG: No acute ST segment changes or T wave inversions on admission - D-dimer negative - Lipase normal - COVID-negative - CXR: No acute findings - CT-C given persistent SOB and concern for potential inhalation injury from working in [employer] - Trend trop overnight, will give GI cocktail to see if it improves her remaining pain. (2) Hypertension: Plan: - Continue losartan/HCTZ combo pill. - BP initially elevated @ 22/92 on presentation, now normotensive Nitropaste and Dilaudid. - Elevated pressures could have contributed to her presenting symptoms. (3) GERD (gastroesophageal reflux disease): Plan: - Continue PPI, switch to Protonix per hospital formulary. - Last EGD 2014 where she required dilation, patient reports she is again having problems swallowing bread requesting another endoscopy. Was to be scheduled as outpatient per PCP. (4) Hormone replacement therapy: Plan: - Continue estrogen therapy. (5) Type 2 diabetes mellitus: Plan: - She is borderline diabetic on low doses of metformin at home. - Hold metformin, Accu-Checks achs with SSI. - A1c in AM; 6.3% in Dec. Plan - MEd/tele for observation. - SCDs for VTE ppx. - Full Code. History of Present Illness Chief Complaint: chest pain and SOB x 1 day Primary Care Provider: Aida Sumner MD Kelley Witt is a 49-year-old female with past medical history significant for diabetes, hyperlipidemia, and IBSpresented today with chest pain. Around 2pm she was walking inside and suddenly got short of breath. Is down, but continued to have chest pain with sharp pain in center of her chest that went to her left back/shoulder. She also had numbness in her left arm down to her fingertips, as well is in the left side of her face. Chest pain did initially come on with exertion, it is coming gone periodically since onset lasting for several seconds at a time and is been present at rest. Indigestion has been worse over the past month or so. She is due to have an EGD done as an outpatient. History of hiatal hernia repaired via Dewayne fundoplication and esophageal dilation. {ain ia 7/10 at its worst but is mostly better after nitro paste and IV Dilaudid inED, although the back/left shoulder pain persists. Patient herself does not have a history of any cardiac disease, but has an extensive family history of cardiac disease, as her father at 43 of a massive heart attack, her mom has had several heart attacks and strokes, and multiple siblings have known heart disease. She had COVID-19 in October and had persistent palpitations, had a stress echo in December 2021 which was normal. Additionally, did get a bad case of poison angel which was treated with steroid cream, did not take pred oral because it makes her very anxious, nervous, and anxious. Allergies Allergy/AdvReac Type Severity Reaction Status Date / Time cefuroxime Allergy Unknown PT DOESN'T Verified 07/05/22 17:02 REMEMBER codeine Allergy Unknown SHORTNESS Verified 07/05/22 17:02 OF BREATH Influenza Virus Vaccines Allergy Unknown Swelling Verified 07/05/22 17:02 of the Eye,rash kiwi Allergy Unknown ITCHING, Verified 07/05/22 17:02 TONGUE AND LIPS SWELL latex Allergy Unknown SHORTNESS Verified 07/05/22 17:02 OF BREATH,MOUTH GOT RED WITH DENTAL WORK/GLOVES Sulfa (Sulfonamide Allergy Unknown RASH Verified 07/05/22 17:02 Antibiotics) tetanus toxoid, adsorbed Allergy Unknown LUMP ON Verified 07/05/22 17:02 ARM AFTER INJECTION metoclopramide AdvReac Unknown SEVERE Verified 07/05/22 17:02 MUSCLE SORENESS morphine AdvReac Unknown severe n/v Verified 07/05/22 17:02 pravastatin AdvReac Unknown muscle pain Verified 07/05/22 17:02 yellow jacket Allergy Unknown Anaphylaxis Uncoded 06/11/22 13:45 Home Medications Medication Instructions Recorded Confirmed Type calcium carbonate 200 mg calcium 200 mg PO HS 09/10/18 07/05/22 History (500 mg) chewable tablet (Tums) esomeprazole magnesium 40 mg 40 mg PO QPM 09/10/18 07/05/22 History capsule,delayed release (Nexium) fluticasone propionate 50 2 spray intranasal QAM 09/10/18 07/05/22 History mcg/actuation nasal spray,suspension (Flonase Allergy Relief) epinephrine 0.3 mg/0.3 mL 0.3 mg subcut UD PRN anaphylaxis 10/22/19 07/05/22 History injection, auto-injector metformin 500 mg tablet 250 mg PO BID #90 tabs 09/06/21 07/05/22 Rx estradiol 0.5 mg tablet 0.5 mg PO QAM 09/12/21 07/05/22 History losartan 50 mg-hydrochlorothiazide 1 tab PO QAM 01/27/22 07/05/22 History 12.5 mg tablet estradiol 0.01% (0.1 mg/gram) 0.25 appful vaginal UD #42.5 grams 05/04/22 07/05/22 Rx vaginal cream esterified 1 tab PO QAM #90 tabs 05/26/22 07/05/22 Rx estrogens-methyltestosterone 1.25 mg-2.5 mg tablet hydroquinone 4 % topical cream 1 applic topical BID 07/05/22 07/05/22 History Past Med/Surg History Medical History Asthma CONTROLLED/ENVIRONMENTAL TRIGGERS Gastroparesis GERD (gastroesophageal reflux disease) History of COVID-19 CLOSE TO 90 DAYS AGO, ? DATE - [place] FAST HEART BEAT, RUNNY NOSE NO CURRENT SYMPTOMS History of pneumothorax AFTER HIATAL HERNIA SX Hormone replacement therapy Hyperlipidemia statin intolerance Hypertension IBS (irritable bowel syndrome) Nausea and vomiting after administration of anesthetic agent HX YRS AGO Rosacea Stenosis of lumbosacral spine HX Type 2 diabetes mellitus BORDERLINE Venous reflux UPCOMING JOSE [facility]ANI[facility]BR[facility] 06 TO DISCUSS TREATMENT OPTIONS Surgical History Difficult airway for intubation H/o awake fiberoptic intubation with her lumbar surgery-PAST 10 YRS-[facility] HAS NOT BEEN INTUBATED SINCE-SPINAL BLOCK WITH FOOT SURGERY H/O left knee surgery History of ankle surgery rt X3 History of back surgery History of cholecystectomy History of colonoscopy History of endoscopy History of eye surgery BLOW OUT FRACTURE RIGHT EYE History of laparotomy FOR RUPTURED ECTOPIC -REMOVAL TUBE AND OVARY History of repair of rotator cuff RX1, LX1 History of right cataract surgery History of sinus surgery History of surgery left bicep repair History of surgery lle - ? History of surgery laparoscopic dewayne fundoplication History of tonsillectomy History of total abdominal hysterectomy and bilateral salpingo-oophorectomy Hx of inguinal hernia surgery (11/22/19) Right Open Direct Inguinal Hernia Repair, Bassini Repair, Lipoma of round ligament Dr. Mcgraw 11-22-19 Family History Brother Family history of reaction to anesthesia pt reports brother had allergic reaction to anesthesia and suffered from stroke after anesthesia Hypertension Stroke Cancer Brother Family history of diabetes mellitus Sister Family history of diabetes mellitus Hypertension Father Myocardial infarction Aunt Breast cancer Grandfather Asthma Mother Cardiac disorder Hypertension Stroke Hearing loss Other Osteoporosis Denies family history of Ovarian cancer Colorectal cancer Social History Smoking Status: Never smoker Second Hand Exposure: No; Hx Alcohol Use: Yes Alcohol type: wine Hx Substance Use: No Preferred Language: Slovak Communication Ability: Effective Visual Impairment: No Limitations Doubler Operator Required: No Beliefs That Will Affect Care: None marital status: Current Living Situation: Spouse Feels Safe at Home: Yes Childhood Exposure to Second-Hand Smoke: No caffeine: Yes Dental Care, Regularly: Yes Seatbelt Use: always Sunscreen Use: Yes Assistive Devices: None Review of Systems Review of Systems: Constitutional: No fever/chills, weakness, fatigue, myalgias, anorexia, night sweats Eyes: No diplopia, no worsening or blurred vision ENT: normal hearing, no trouble swallowing Respiratory: SOB at rest/exertion associated with sharp chest/back pain since this afternoon Cardiovascular: sharp chest pain radiation to left face, left neck, back; no tightness or palpitations Abdomen: Reports indigestion over the past month; no pain, nausea, vomiting, diarrhea or constipation : Denies dysuria, hematuria, increased urgency/frequency, urinary retention Musculoskeletal: No joint pain, calf pain, swelling Neurologic: No weakness, numbness/tingling, or balance problems Psychiatric: No anxiety or depression Skin: No rash or itch Physical Exam Physical Exam: General: awake, alert, no apparent distress Head: Normocephalic, atraumatic ENT: PERRL, EOMI, no pharyngeal exudate, mucous membranes moist Chest: Clear to auscultation, on room air, no adventitious breath sounds Cardiac: Regular rate and rhythm, no murmur, no JVD, normal peripheral pulses, good capillary refill Abdominal: NABS x 4 quadrants, soft, nontender to palpation, no rebound, guarding or tenderness Extremities: Mildly TTP along left shoulder/scapula however this pain is different than the 1 she presented with which is still present; normal inspection, no peripheral edema or erythema, calfs nontender to palpation Psych: Normal mood and affect Neuro: AAO x 3, strength intact bilaterally and rated 5/5, no motor deficits, speech is clear, no peripheral sensory deficits Skin: no rash or erythema Results & Data Results & Data ([facility]) Vital Signs (Past 12 Hours) Vital Signs Temp Pulse Resp BP Pulse Ox O2 Del Method O2 Flow Rate 07/05/22 16:30 65 16 96 07/05/22 16:30 159/82 H 07/05/22 16:00 63 19 95 07/05/22 16:00 141/80 H 07/05/22 15:48 65 20 95 07/05/22 15:48 139/65 07/05/22 15:31 140/75 07/05/22 15:31 61 23 96 07/05/22 15:30 60 20 95 07/05/22 15:30 149/78 H 07/05/22 15:12 160/75 H 07/05/22 15:12 71 25 H 98 07/05/22 15:11 71 22 98 07/05/22 15:36 95 Room Air 0 07/05/22 14:54 36.6 C 70 18 222/92 H 96 Room Air Laboratory Results Abnormal lab results 07/05/22 07/05/22 Range/Units 15:17 15:17 Immature Gran # (Auto) 0.04 H (0.00-0.02) K/uL Glucose 109 H (70-99(Fasting)) mg/dl Diagnostic Findings Chest X-Ray 07/05/22 15:36 XR chest 1V portable HISTORY: Atypical Chest Pain COMPARISON: Chest 12/06/2021. FINDINGS: No pneumothorax. No pleural effusions. The cardiac silhouette remains mildly enlarged. Small left basilar linear densities favor subsegmental atelectasis or scarring. Otherwise, no focal lung consolidations to suggest pneumonia. No evidence for pulmonary edema. IMPRESSION: Stable mild cardiomegaly. Otherwise, no acute process within the chest. ACT 112: Negative or not required by law. Electronically signed by: Marcial Lopez M.D. 07/05/2022 4:22 PM Code Status & VTE Plan Code Status Full Code. Supervising Physician Co-Signing Physician Notes Patient seen and examined, chart reviewed, case discussed with Ceci Hernández, LAILA and I agree with the assessment and plan as above except as otherwise noted Labs and images reviewed Patient seen at bedside with Ceci Hernández. Patient with chest pain shortness of breath as noted above. On exam heart rate is regular, lungs are clear to auscultation bilaterally with good air movement, skin is warm and dry. Posterior scapula is nontender to palpation, her pain is not able to be rib produced in the shoulder blade, shoulder, or chest by palpation. Trace pedal edema of the right foot, chronic per patient after venous ablation otherwise no edema. Chest pain DDx includes cardiac with strong family history, GI as history of dilation and with Dewayne fundoplication Troponin on admission negative, 2-hour troponin pending Past medical history of early NV/ in family members in their 40s, patient with personal history of diabetes, hypertension EKG: No acute ST segment changes or T wave inversions on admission Patient with a story concerning for angina and left chest, neck, and jaw pain without history of MSK injury Pain improved but not resolved with aspirin and nitro, pain subsequently improved with hydromorphone 0.25 D-dimer negative Lipase normal COVID-negative CXR: No acute findings - CT-C given persistent SoB and concern for potential inhalation injury from working in [employer] Type 2 diabetes mellitus On metformin to 50 mg twice daily FRANCHISE SALES MANAGER A1c last 6.3%, repeat pending Glucose checks AC/at bedtime Basal bolus SSI while admitted Heart healthy diet Goal BSG 1001 40 Hypertension Continue losartan, hydrochlorothiazide FRANCHISE SALES MANAGER Statin myopathy Patient unable to tolerate multiple statins on past trials History of Dewayne fundoplication for repair of hiatal hernia Last EGD 2014 where she required dilation, patient reports she is again having problems swallowing bread requesting another endoscopy. Was to be scheduled as outpatient per PCP PG Care Time/CCT Total # of Minutes Spent Total Time Spent with Patient: Total time spent is greater than 50% in coordination of care (as documented) at patient's floor/unit and/or counseling patient: Coding Level of Care Code INT OBSERVATION CARE 70M LVL 3 Diagnoses Chest pain R07.9 Hypertension I10 GERD (gastroesophageal reflux disease) K21.9 Hormone replacement therapy Z79.890 Type 2 diabetes mellitus E11.9
[2022-07-05] MEDS ORDERED: ALUMINUM/MAGNESIUM SUSP 18 ML, LIDOCAINE VISCOUS 2% SOLN 6 ML, BARCODE IDENTIFIER 1 EACH PO ONE (18:52)
--- NOTE | 2022-07-05 19:34 | Emergency Department Note ---
Impression & Plan Left-sided chest pain ED Provider Note INFORMANT: Patient ED PROVIDER(S): Low Mojica MD CHIEF COMPLAINT: Chest pain PLAN: Disposition: Admitted Condition: Good Outpatient prescription management: none Referral: None MEDICAL DECISION MAKING: Patient presented with chest pain. Work-up was initiated. ECG did not reveal any acute findings. Chest x-ray was negative. The patient's troponin, CBC, D- dimer, LFTs were negative. She was given Nitropaste and aspirin. She still had discomfort and was treated with a dose of Dilaudid and Zofran. The patient and I discussed further management in the hospital. Under the circumstances, with the patient's family history and her presentation further management was felt to be appropriate. Consultation was made with Dr. Chirinos of the [facility] service. Patient was evaluated in the ER for further management. Triage Nursing notes reviewed and agree them. Vital Signs: reviewed and remarkable for no significant abnormalities Differential diagnosis: Cardiac ischemia, aortic dissection, pulmonary embolism, pneumothorax, pneumonia, pericarditis, myocarditis, esophageal rupture, GERD, cholecystitis, pancreatitis, musculoskeletal, as well as other pathologies. Diagnostics interpreted by me: EC Lead ECG performed and revealed Normal sinus rhythm at 68, normal [place], QRS normal. No elevation or depression. No PACs or PVCs Cardiac Monitoring: Cardiac monitoring ordered by me: The patient was placed on continuous cardiac monitoring and observed. It revealed a normal sinus rhythm a t 64 beats per minute without ectopy or evidence of dysrhythmia. Imaging studies: Chest x-ray. Findings: A chest x-ray was performed and revealed no pneumothorax, effusion, infiltrate, pulmonary edema, free air under the diaphragm, or wide mediastinum. Impression: No acute disease. HPI: The patient is a 67year old female who presents to the Emergency Room with complaints of chest pain. This started about 1 hour ago and is persisting. It is left-sided. It does radiate up to the jaw, shoulder and back. The patient also notes the following associated symptoms, some tingling in the left arm as well shortness of breath. The patient has found no relieving factors. Current pain is rated as 6/10. Patient has no personal cardiac history but has an extensive family cardiac history. Pt denies LOC, headache, fevers, chills, d iaphoresis, visual changes, neck pain, current breathing difficulties, nausea, vomiting, abdominal pain, melena, hematochezia, urinary symptoms, numbness, weakness, lymphadenopathy, rash, or other complaints. ROS: See above HPI for pertinent positives & negatives. A total of 10 systems reviewed and were otherwise negative. PAST MEDICAL HISTORY:See Below , type 2 diabetes PAST SURGICAL HISTORY:See Below, FAMILY HISTORY:See Below SOCIAL HISTORY:See Below, HOME MEDICATIONS:See Below ALLERGIES:See Below VITALS:See Below PHYSICAL EXAMINATION: GENERAL: Awake, alert, mildly uncomfortable-appearing, in no distress HENT: Normocephalic, atraumatic. Oropharynx unremarkable. EYES: Normal conjunctiva. Sclera non-icteric. NECK: Inspection normal. Non-tender. Supple. No nuchal rigidity. FROM. No masses. RESPIRATORY: Clear to auscultation. No wheezes. No rales. Normal respiratory effort. CARDIAC: Normal rate. Normal rhythm. No murmurs. No rubs. Extremities warm and well perfused. Pulses equal. No JVD. GI: Soft, non-distended. No tenderness to palpation. No rebound or guarding. No masses. RECTAL: Deferred. MUSCULOSKELETAL: Atraumatic. Chest examination reveals no tenderness. The back is symmetrical on inspection without obvious abnormality. There is no CVA tenderness to palpation. No joint edema. LOWER EXTREMITIES: Calves are equal size bilaterally and non-tender. No edema. No discoloration. NEURO: Normal sensorium. No sensory or motor deficits noted. SKIN: No rash or jaundice noted. Low Mojica MD Past Med/Surg History Medical History Asthma CONTROLLED/ENVIRONMENTAL TRIGGERS Gastroparesis GERD (gastroesophageal reflux disease) History of COVID-19 CLOSE TO 90 DAYS AGO, ? DATE - [place] FAST HEART BEAT, RUNNY NOSE NO CURRENT SYMPTOMS History of pneumothorax AFTER HIATAL HERNIA SX Hormone replacement therapy Hyperlipidemia statin intolerance Hypertension IBS (irritable bowel syndrome) Nausea and vomiting after administration of anesthetic agent HX YRS AGO Rosacea Stenosis of lumbosacral spine HX Type 2 diabetes mellitus BORDERLINE Venous reflux UPCOMING [facility] 06 TO DISCUSS TREATMENT OPTIONS Surgical History Difficult airway for intubation H/o awake fiberoptic intubation with her lumbar surgery-PAST 10 YRS-[facility] HAS NOT BEEN INTUBATED SINCE-SPINAL BLOCK WITH FOOT SURGERY H/O left knee surgery History of ankle surgery rt X3 History of back surgery History of cholecystectomy History of colonoscopy History of endoscopy History of eye surgery BLOW OUT FRACTURE RIGHT EYE History of laparotomy FOR RUPTURED ECTOPIC -REMOVAL TUBE AND OVARY History of repair of rotator cuff RX1, LX1 History of right cataract surgery History of sinus surgery History of surgery left bicep repair History of surgery lle - ? History of surgery laparoscopic guido fundoplication History of tonsillectomy History of total abdominal hysterectomy and bilateral salpingo-oophorectomy Hx of inguinal hernia surgery (11/22/19) Right Open Direct Inguinal Hernia Repair, Bassini Repair, Lipoma of round ligament Dr. Mcgraw 11-22-19 Family History Brother Family history of reaction to anesthesia pt reports brother had allergic reaction to anesthesia and suffered from stroke after anesthesia Hypertension Stroke Cancer Brother Family history of diabetes mellitus Sister Family history of diabetes mellitus Hypertension Father Myocardial infarction Aunt Breast cancer Grandfather Asthma Mother Cardiac disorder Hypertension Stroke Hearing loss Other Osteoporosis Denies family history of Ovarian cancer Colorectal cancer Social History Smoking Status: Never smoker Second Hand Exposure: No; Hx Alcohol Use: Yes Alcohol type: wine Hx Substance Use: No Preferred Language: Amharic Communication Ability: Effective Visual Impairment: No Limitations Rn Procedure Required: No Beliefs That Will Affect Care: None marital status: Current Living Situation: Spouse Feels Safe at Home: Yes Safety Concerns: Feels Safe At This Time Childhood Exposure to Second-Hand Smoke: No caffeine: Yes Dental Care, Regularly: Yes Seatbelt Use: always Sunscreen Use: Yes Assistive Devices: None Allergies Allergies Allergy/AdvReac Type Severity Reaction Status Date / Time cefuroxime Allergy Unknown PT DOESN'T Verified 07/05/22 17:02 REMEMBER codeine Allergy Unknown SHORTNESS Verified 07/05/22 17:02 OF BREATH Influenza Virus Vaccines Allergy Unknown Swelling Verified 07/05/22 17:02 of the Eye,rash kiwi Allergy Unknown ITCHING, Verified 07/05/22 17:02 TONGUE AND LIPS SWELL latex Allergy Unknown SHORTNESS Verified 07/05/22 17:02 OF BREATH,MOUTH GOT RED WITH DENTAL WORK/GLOVES Sulfa (Sulfonamide Allergy Unknown RASH Verified 07/05/22 17:02 Antibiotics) tetanus toxoid, adsorbed Allergy Unknown LUMP ON Verified 07/05/22 17:02 ARM AFTER INJECTION metoclopramide AdvReac Unknown SEVERE Verified 07/05/22 17:02 MUSCLE SORENESS morphine AdvReac Unknown severe n/v Verified 07/05/22 17:02 pravastatin AdvReac Unknown muscle pain Verified 07/05/22 17:02 yellow jacket Allergy Unknown Anaphylaxis Uncoded 06/11/22 13:45 Home Meds Home Medications Medication Instructions Recorded Confirmed calcium carbonate 200 mg calcium 200 mg PO HS 09/10/18 07/05/22 (500 mg) chewable tablet (Tums) esomeprazole magnesium 40 mg 40 mg PO QPM 09/10/18 07/05/22 capsule,delayed release (Nexium) fluticasone propionate 50 2 spray intranasal QAM 09/10/18 07/05/22 mcg/actuation nasal spray,suspension (Flonase Allergy Relief) epinephrine 0.3 mg/0.3 mL 0.3 mg subcut UD PRN anaphylaxis 10/22/19 07/05/22 injection, auto-injector estradiol 0.5 mg tablet 0.5 mg PO QAM 09/12/21 07/05/22 losartan 50 mg-hydrochlorothiazide 1 tab PO QAM 01/27/22 07/05/22 12.5 mg tablet hydroquinone 4 % topical cream 1 applic topical BID 07/05/22 07/05/22 Previous Rx's Medication Instructions Recorded metformin 500 mg tablet 250 mg PO BID #90 tabs 09/06/21 estradiol 0.01% (0.1 mg/gram) 0.25 appful vaginal UD #42.5 grams 05/04/22 vaginal cream esterified 1 tab PO QAM #90 tabs 05/26/22 estrogens-methyltestosterone 1.25 mg-2.5 mg tablet Results & Data (ED) Vital Signs Vital Signs - 24 hr 07/05/22 14:54 07/05/22 15:36 07/05/22 15:11 Temperature 36.6 C Temperature Source Temporal Artery Scan Pulse Rate 70 71 Pulse Rate from SpO2 Sensor 70 Respiratory Rate 18 22 Respiratory Effort / Characteristics Non-Labored Respiratory Depth Normal Respiratory Pattern Regular Blood Pressure 222/92 H Blood Pressure Mean 135 Blood Pressure Position Sitting Pulse Oximetry 96 95 98 Oxygen Delivery Method Room Air Room Air Oxygen Flow Rate 0 Sepsis Recent Fever Within 48 Hours No Sepsis New/Unexplained Change in Mental Status No Sepsis Action Taken by Nursing No Action Required 07/05/22 15:12 07/05/22 15:12 07/05/22 15:30 Temperature Temperature Source Pulse Rate 71 Pulse Rate from SpO2 Sensor 71 Respiratory Rate 25 H Respiratory Effort / Characteristics Respiratory Depth Respiratory Pattern Blood Pressure 160/75 H 149/78 H Blood Pressure Mean 103 101 Blood Pressure Position Pulse Oximetry 98 Oxygen Delivery Method Oxygen Flow Rate Sepsis Recent Fever Within 48 Hours Sepsis New/Unexplained Change in Mental Status Sepsis Action Taken by Nursing 07/05/22 15:30 07/05/22 15:31 07/05/22 15:31 Temperature Temperature Source Pulse Rate 60 61 Pulse Rate from SpO2 Sensor 61 61 Respiratory Rate 20 23 Respiratory Effort / Characteristics Respiratory Depth Respiratory Pattern Blood Pressure 140/75 Blood Pressure Mean 96 Blood Pressure Position Pulse Oximetry 95 96 Oxygen Delivery Method Oxygen Flow Rate Sepsis Recent Fever Within 48 Hours Sepsis New/Unexplained Change in Mental Status Sepsis Action Taken by Nursing 07/05/22 15:48 07/05/22 15:48 07/05/22 16:00 Temperature Temperature Source Pulse Rate 65 Pulse Rate from SpO2 Sensor 66 Respiratory Rate 20 Respiratory Effort / Characteristics Respiratory Depth Respiratory Pattern Blood Pressure 139/65 141/80 H Blood Pressure Mean 89 100 Blood Pressure Position Pulse Oximetry 95 Oxygen Delivery Method Oxygen Flow Rate Sepsis Recent Fever Within 48 Hours Sepsis New/Unexplained Change in Mental Status Sepsis Action Taken by Nursing 07/05/22 16:00 07/05/22 16:30 07/05/22 16:30 Temperature Temperature Source Pulse Rate 63 65 Pulse Rate from SpO2 Sensor 64 65 Respiratory Rate 19 16 Respiratory Effort / Characteristics Respiratory Depth Respiratory Pattern Blood Pressure 159/82 H Blood Pressure Mean 107 Blood Pressure Position Pulse Oximetry 95 96 Oxygen Delivery Method Oxygen Flow Rate Sepsis Recent Fever Within 48 Hours Sepsis New/Unexplained Change in Mental Status Sepsis Action Taken by Nursing 07/05/22 17:00 07/05/22 17:00 07/05/22 17:30 Temperature Temperature Source Pulse Rate 68 Pulse Rate from SpO2 Sensor 64 Respiratory Rate 20 Respiratory Effort / Characteristics Respiratory Depth Respiratory Pattern Blood Pressure 140/81 131/78 Blood Pressure Mean 100 95 Blood Pressure Position Pulse Oximetry 96 Oxygen Delivery Method Oxygen Flow Rate Sepsis Recent Fever Within 48 Hours Sepsis New/Unexplained Change in Mental Status Sepsis Action Taken by Nursing 07/05/22 17:30 07/05/22 18:00 07/05/22 18:00 Temperature Temperature Source Pulse Rate 60 61 Pulse Rate from SpO2 Sensor 61 60 Respiratory Rate 20 20 Respiratory Effort / Characteristics Respiratory Depth Respiratory Pattern Blood Pressure 134/77 Blood Pressure Mean 96 Blood Pressure Position Pulse Oximetry 95 97 Oxygen Delivery Method Oxygen Flow Rate Sepsis Recent Fever Within 48 Hours Sepsis New/Unexplained Change in Mental Status Sepsis Action Taken by Nursing Laboratory Data Result diagrams: 07/05/22 15:17 07/05/22 15:17 Lab Results 07/05/22 07/05/22 07/05/22 Range/Units 15:17 15:17 15:17 WBC 8.47 (4.8-10.8) K/ul RBC 4.15 (3.93-5.22) M/uL Hgb 13.5 (12.0-16.0) g/dl Hct 40.2 (34.1-44.9) % MCV 96.9 (80.0-100.0) fL MCH 32.5 (25.0-34.0) pg MCHC 33.6 (32.0-36.0) g/dL RDW Std Deviation 46.1 (36.4-46.3) fL RDW Coeff of Romaine 12.9 (11.5-14.5) % Plt Count 278 (130-400) K/uL MPV 10.1 (9.4-12.3) fL Immature Gran % (Auto) 0.5 % Neut % (Auto) 59.0 % Lymph % (Auto) 30.9 % Dukes % (Auto) 8.4 % Eos % (Auto) 0.8 % Baso % (Auto) 0.4 % Neut # (Auto) 5.00 (1.4-6.5) K/uL Lymph # (Auto) 2.62 (1.2-3.4) K/uL Dukes # (Auto) 0.71 (0.24-0.82) K/uL Eos # (Auto) 0.07 (0-0.50) K/uL Baso # (Auto) 0.03 (0-0.2) K/uL Immature Gran # (Auto) 0.04 H (0.00-0.02) K/uL D-Dimer 500 (0-500) ug/L FEU Sodium 137 (136-145) mmol/L Potassium 3.7 (3.5-5.1) mmol/L Chloride 100 (98-107) mmol/L Carbon Dioxide 28 (21-32) mmol/L Anion Gap 9 (3-11) BUN 12 (6-23) mg/dl Creatinine 0.85 (0.6-1.2) mg/dl Est Cr Clr Drug Dosing 68.9 ml/min Est GFR ( Amer) 81.6 ml/min Est GFR (Non-Af Amer) 70.4 ml/min BUN/Creatinine Ratio 14.1 (10-20) Glucose 109 H (70-99(Fasting)) mg/dl Calcium 9.6 (8.5-10.1) mg/dl Total Bilirubin 0.5 (0.2-1.0) mg/dl AST 19 (13-39) U/L ALT 8 (7-52) U/L Alkaline Phosphatase 56 (34-104) U/L Troponin I High Sens 3.2 (0-14) pg/ml Total Protein 7.2 (6.0-8.3) gm/dl Albumin 4.2 (3.4-5.0) gm/dl Globulin 3.0 (2.5-4.0) gm/dl Albumin/Globulin Ratio 1.4 (0.9-2) Lipase 17 (11-82) U/L SARS-CoV-2, RNA, NAAT (NEGATIVE) 07/05/22 Range/Units 16:44 WBC (4.8-10.8) K/ul RBC (3.93-5.22) M/uL Hgb (12.0-16.0) g/dl Hct (34.1-44.9) % MCV (80.0-100.0) fL MCH (25.0-34.0) pg MCHC (32.0-36.0) g/dL RDW Std Deviation (36.4-46.3) fL RDW Coeff of Romaine (11.5-14.5) % Plt Count (130-400) K/uL MPV (9.4-12.3) fL Immature Gran % (Auto) % Neut % (Auto) % Lymph % (Auto) % Dukes % (Auto) % Eos % (Auto) % Baso % (Auto) % Neut # (Auto) (1.4-6.5) K/uL Lymph # (Auto) (1.2-3.4) K/uL Dukes # (Auto) (0.24-0.82) K/uL Eos # (Auto) (0-0.50) K/uL Baso # (Auto) (0-0.2) K/uL Immature Gran # (Auto) (0.00-0.02) K/uL D-Dimer (0-500) ug/L FEU Sodium (136-145) mmol/L Potassium (3.5-5.1) mmol/L Chloride (98-107) mmol/L Carbon Dioxide (21-32) mmol/L Anion Gap (3-11) BUN (6-23) mg/dl Creatinine (0.6-1.2) mg/dl Est Cr Clr Drug Dosing ml/min Est GFR ( Amer) ml/min Est GFR (Non-Af Amer) ml/min BUN/Creatinine Ratio (10-20) Glucose (70-99(Fasting)) mg/dl Calcium (8.5-10.1) mg/dl Total Bilirubin (0.2-1.0) mg/dl AST (13-39) U/L ALT (7-52) U/L Alkaline Phosphatase (34-104) U/L Troponin I High Sens (0-14) pg/ml Total Protein (6.0-8.3) gm/dl Albumin (3.4-5.0) gm/dl Globulin (2.5-4.0) gm/dl Albumin/Globulin Ratio (0.9-2) Lipase (11-82) U/L SARS-CoV-2, RNA, NAAT NEGATIVE (NEGATIVE) Administered Medications Calcium Carbonate (Calcium Carbonate 500 Mg Chewable Tab) 500 mg PO HS SÁNCHEZ Stop: 08/04/22 20:59 Last Admin: 07/05/22 21:28 Dose: 500 mg Documented By: Insulin Aspart (Insulin Aspart Per Unit) 0 units SC ACHS SÁNCHEZ Stop: 08/04/22 20:59 Last Admin: 07/05/22 20:47 Dose: Not Given Documented By: Miscellaneous (*Estradiol 0.5 Mg Tablet*Order Awaiting Action) 1 each N/A QS SÁNCHEZ Stop: 08/05/22 00:00 Last Admin: 07/05/22 22:27 Dose: Not Given Documented By: Miscellaneous (*Estrogens-Methyltestosterone*Order Awaiting Action) 1 each N/A QS SÁNCHEZ Stop: 08/05/22 00:00 Last Admin: 07/05/22 22:27 Dose: Not Given Documented By: Miscellaneous (*Hydroquinone 4 %*Order Awaiting Action) 1 each N/A QS SÁNCHEZ Stop: 08/05/22 00:00 Last Admin: 07/05/22 21:34 Dose: Not Given Documented By: Discontinued Medications Aspirin (Aspirin Chew 324 Mg) 324 mg PO NOW STA Stop: 07/05/22 15:45 Last Admin: 07/05/22 15:48 Dose: 324 mg Documented By: AM Hydromorphone HCl (Hydromorphone Inj 0.5 Mg/0.5 Ml Syr) 0.25 mg IV NOW STA Stop: 07/05/22 17:58 Last Admin: 07/05/22 18:04 Dose: 0.25 mg Documented By: TRH Nitroglycerin (Nitroglycerin 2% Ointment 30gm Tube) 0.5 inch EXT NOW STA Stop: 07/05/22 15:45 Last Admin: 07/05/22 15:48 Dose: 0.5 inch Documented By: AM Ondansetron HCl (Ondansetron Inj 2 Mg/Ml 2 Ml Vial) 4 mg IV NOW STA Stop: 07/05/22 17:58 Last Admin: 07/05/22 18:04 Dose: 4 mg Documented By: TRH Imaging Data Radiologist's Impression: Chest X-Ray 07/05/22 15:36 XR chest 1V portable HISTORY: Atypical Chest Pain COMPARISON: Chest 12/06/2021. FINDINGS: No pneumothorax. No pleural effusions. The cardiac silhouette remains mildly enlarged. Small left basilar linear densities favor subsegmental atelectasis or scarring. Otherwise, no focal lung consolidations to suggest pneumonia. No evidence for pulmonary edema. IMPRESSION: Stable mild cardiomegaly. Otherwise, no acute process within the chest. ACT 112: Negative or not required by law. Electronically signed by: Marcial Lopez M.D. 07/05/2022 4:22 PM Discharge Plan Visit Data Chief Complaint: Chest Pain Stated Complaint: CHEST PAIN, L ARM NUMB, COLD SWEAT POSS STROKE ED Provider: Low Mojica Discharge Problem: Left-sided chest pain Patient Disposition: Admitted As Inpatient Discharge Instructions Interventions: ED Discharge Assessment Last Done: 07/05/22 19:59
[2022-07-05] MEDS ORDERED: GLUCOSE 10 TAB/TUBE PO PRN (20:17)
[2022-07-05] MEDS ORDERED: HYDROmorphone INJ 0.5 MG/0.5 ML SYR IV PRN ×2 (20:17)
[2022-07-05] MEDS ORDERED: ONDANSETRON INJ 2 MG/ML 2 ML VIAL IV PRN (20:17)
[2022-07-05] MEDS ORDERED: ACETAMINOPHEN 325 MG TAB PO PRN (20:17)
[2022-07-05] MEDS ORDERED: CARBOHYDRATES FOR HYPOGLYCEMIA PO PRN (20:17)
[2022-07-05] MEDS ORDERED: GLUCAGON FOR INJ 1 MG VIAL SQ PRN (20:17)
[2022-07-05] MEDS ORDERED: DEXTROSE 50% 50 ML SYRINGE IV PRN (20:17)
[2022-07-05] MEDS ORDERED: GLUCOSE 40% GEL 15 GM TUBE PO PRN (20:17)
[2022-07-05] MEDS: INSULIN ASPART PER UNIT SC SCH (20:47)
[2022-07-05] MEDS ORDERED: CALCIUM CARBONATE 500 MG CHEWABLE TAB PO SCH (21:00)
--- NOTE | 2022-07-06 07:16 | Electrocardiogram Report ---
Test Reason : Blood Pressure : / mmHG Vent. Rate : 068 BPM Atrial Rate : 068 BPM P-R Int : 166 ms QRS Dur : 088 ms QT Int : 434 ms P-R-T Axes : 039 009 022 degrees QTc Int : 461 ms Normal sinus rhythm Normal ECG When compared with ECG of 06-DEC-2021 20:22, No significant change was found Confirmed by Bulmaro Polo ([id number]) on 07/06/2022 7:16:03 AM Referred By: REFERRED SELF Confirmed By:Joel Polo
--- NOTE | 2022-07-06 07:26 | CT Scan Report ---
CT chest diagnostic wo con CT DOSE: 306.74 mGy.cm HISTORY: shortness of breath TECHNIQUE: Multiaxial CT images of the chest were performed without contrast. A dose lowering techni que was utilized adhering to the principles of ALARA. COMPARISON: Chest CTA 12/06/2021. FINDINGS: The central airways are patent. No pneumothorax. No pleural effusions. Bibasilar linear den sities favor subsegmental atelectasis. Otherwise, no focal lung consolidations to suggest pneumonia. No evidence for pulmonary edema. The visualized liver, spleen, and adrenal glands are unremarkable. P rior cholecystectomy. Moderate hiatus hernia, unchanged. Otherwise, normal caliber esophagus. No medi astinal or hilar lymphadenopathy. The heart remains enlarged. No pericardial effusion. Normal caliber thoracic aorta with mild calcified plaque. No fractures within the visualized osseous structures. IMPRESSION: 1. No focal lung consolidations to suggest pneumonia. 2. Mild cardiomegaly, unchanged. 3. Moderate hiatus hernia, unchanged. ACT 112: Negative or not required by law. Electronically signed by: Marcial Lopez M.D. 07/06/2022 7:25 AM
[2022-07-06] MEDS: INSULIN ASPART PER UNIT SC SCH ×2 (07:42→11:37)
[2022-07-06 07:52] LABS: Basophils # (auto) 0.03 K/uL (0-0.2); Basophils % (auto) 0.5 %; Eosinophils # (auto) 0.06 K/uL (0-0.50); Hemoglobin 12.2 g/dl (12.0-16.0); Immature Granulocytes # (auto) 0.02 K/uL (0.00-0.02); Immature Granulocytes % (auto) 0.3 %; Lymphocytes # (auto) 1.64 K/uL (1.2-3.4); Lymphocytes % (auto) 27.3 %; Mean Corpuscular Hemoglobin 31.9 pg (25.0-34.0); Mean Corpuscular Volume 96.9 fL (80.0-100.0); Mean Platelet Volume 9.8 fL (9.4-12.3); Monocytes # (auto) 0.39 K/uL (0.24-0.82); Monocytes % (auto) 6.5 %; Neutrophils # (auto) 3.86 K/uL (1.4-6.5); Neutrophils % (auto) 64.4 %; Platelet Count 233 K/uL (130-400); RDW Coefficient of Variation 12.9 % (11.5-14.5); RDW Standard Deviation 46.3 fL (36.4-46.3); Red Blood Count 3.82 M/uL (3.93-5.22)
[2022-07-06 08:20] LABS: BUN Creatinine Ratio 12.4 (10-20); Calcium 8.9 mg/dl (8.5-10.1); Creatinine Clr Calc Pharmacy 64.9 ml/min; Est GFR (African American) 77.2 ml/min; Est GFR (Non-African American) 66.6 ml/min; Potassium 3.7 mmol/L (3.5-5.1)
[2022-07-06] MEDS ORDERED: FAMOTIDINE 20 MG in SYRINGE 3 ML IV ONE (09:00)
[2022-07-06] MEDS ORDERED: FLUTICASONE PROPIONATE NA SPR 16 GM BTL SCH (09:00)
[2022-07-06] MEDS ORDERED: LOSARTAN/HCTZ 50/12.5MG TAB PO SCH (09:00)
[2022-07-06] MEDS ORDERED: CALCIUM CARBONATE 500 MG CHEWABLE TAB PO SCH (12:00)
--- NOTE | 2022-07-06 13:05 | Discharge Summary ---
Date of Service July 06, 2022 Admission HPI Per Admitting Provider Kelley Witt is a 49-year-old female with past medical history significant for diabetes, hyperlipidemia, and IBSpresented today with chest pain. Around 2pm she was walking inside and suddenly got short of breath. Is down, but continued to have chest pain with sharp pain in center of her chest that went to her left back/shoulder. She also had numbness in her left arm down to her fingertips, as well is in the left side of her face. Chest pain did initially come on with exertion, it is coming gone periodically since onset lasting for several seconds at a time and is been present at rest. Indigestion has been worse over the past month or so. She is due to have an EGD done as an outpatient. History of hiatal hernia repaired via Dewayne fundoplication and esophageal dilation. {ain ia 7/10 at its worst but is mostly better after nitro paste and IV Dilaudid inED, although the back/left shoulder pain persists. Patient herself does not have a history of any cardiac disease, but has an extensive family history of cardiac disease, as her father at 43 of a massive heart attack, her mom has had several heart attacks and strokes, and multiple siblings have known heart disease. She had COVID-19 in October and had persistent palpitations, had a stress echo in December 2021 which was normal. Additionally, did get a bad case of poison angel which was treated with steroid cream, did not take pred oral because it makes her very anxious, nervous, and anxious. Principal Diagnosis chest pain secondary to chronic hiatal hernia vs musculoskeletal Discharge Exam General: awake, no apparent distress Head: Normocephalic, atraumatic ENT: EOMI, mucous membranes moist Chest: CTAB, on room air, no adventitious breath sounds Cardiac: RRR, no murmur, no JVD, normal peripheral pulses, good capillary refill Abdominal: NABS x 4 quadrants, soft, nontender to palpation, no rebound, guarding or tenderness Extremities: Mildly TTP along left shoulder/scapula, normal inspection, no peripheral edema or erythema, calfs nontender to palpation Psych: Normal mood and affect Neuro: AOx3, 4/5 relay mechanic strength on L, no peripheral sensory deficits Skin: no rash or erythema Discharge Data Allergies Allergy/AdvReac Type Severity Reaction Status Date / Time cefuroxime Allergy Unknown PT DOESN'T Verified 07/05/22 17:02 REMEMBER codeine Allergy Unknown SHORTNESS Verified 07/05/22 17:02 OF BREATH Influenza Virus Vaccines Allergy Unknown Swelling Verified 07/05/22 17:02 of the Eye,rash kiwi Allergy Unknown ITCHING, Verified 07/05/22 17:02 TONGUE AND LIPS SWELL latex Allergy Unknown SHORTNESS Verified 07/05/22 17:02 OF BREATH,MOUTH GOT RED WITH DENTAL WORK/GLOVES Sulfa (Sulfonamide Allergy Unknown RASH Verified 07/05/22 17:02 Antibiotics) tetanus toxoid, adsorbed Allergy Unknown LUMP ON Verified 07/05/22 17:02 ARM AFTER INJECTION metoclopramide AdvReac Unknown SEVERE Verified 07/05/22 17:02 MUSCLE SORENESS morphine AdvReac Unknown severe n/v Verified 07/05/22 17:02 pravastatin AdvReac Unknown muscle pain Verified 07/05/22 17:02 yellow jacket Allergy Unknown Anaphylaxis Uncoded 06/11/22 13:45 Consultations 07/05/22 19:26 ED Decision to Admit Stat Ordered Studies Laboratory Results WBC 6.00 K/ul (4.8-10.8) 07/06/22 07:26 RBC 3.82 M/uL (3.93-5.22) L 07/06/22 07:26 Hgb 12.2 g/dl (12.0-16.0) 07/06/22 07:26 Hct 37.0 % (34.1-44.9) 07/06/22 07:26 MCV 96.9 fL (80.0-100.0) 07/06/22 07:26 MCH 31.9 pg (25.0-34.0) 07/06/22 07:26 MCHC 33.0 g/dL (32.0-36.0) 07/06/22 07:26 RDW Std Deviation 46.3 fL (36.4-46.3) 07/06/22 07:26 RDW Coeff of Romaine 12.9 % (11.5-14.5) 07/06/22 07:26 Plt Count 233 K/uL (130-400) 07/06/22 07:26 MPV 9.8 fL (9.4-12.3) 07/06/22 07:26 Immature Gran % (Auto) 0.3 % 07/06/22 07:26 Neut % (Auto) 64.4 % 07/06/22 07:26 Lymph % (Auto) 27.3 % 07/06/22 07:26 Rapides % (Auto) 6.5 % 07/06/22 07:26 Eos % (Auto) 1.0 % 07/06/22 07:26 Baso % (Auto) 0.5 % 07/06/22 07:26 Neut # (Auto) 3.86 K/uL (1.4-6.5) 07/06/22 07:26 Lymph # (Auto) 1.64 K/uL (1.2-3.4) 07/06/22 07:26 Rapides # (Auto) 0.39 K/uL (0.24-0.82) 07/06/22 07:26 Eos # (Auto) 0.06 K/uL (0-0.50) 07/06/22 07:26 Baso # (Auto) 0.03 K/uL (0-0.2) 07/06/22 07:26 Immature Gran # (Auto) 0.02 K/uL (0.00-0.02) 07/06/22 07:26 D-Dimer 500 ug/L FEU (0-500) 07/05/22 15:17 Sodium 138 mmol/L (136-145) 07/06/22 07:26 Potassium 3.7 mmol/L (3.5-5.1) 07/06/22 07:26 Chloride 104 mmol/L (98-107) 07/06/22 07:26 Carbon Dioxide 29 mmol/L (21-32) 07/06/22 07:26 Anion Gap 5 (3-11) 07/06/22 07:26 BUN 11 mg/dl (6-23) 07/06/22 07:26 Creatinine 0.89 mg/dl (0.6-1.2) 07/06/22 07:26 Est Cr Clr Drug Dosing 64.9 ml/min 07/06/22 07:26 Est GFR ( Amer) 77.2 ml/min 07/06/22 07:26 Est GFR (Non-Af Amer) 66.6 ml/min 07/06/22 07:26 BUN/Creatinine Ratio 12.4 (10-20) 07/06/22 07:26 Glucose 126 mg/dl (70-99(Fasting)) H 07/06/22 07:26 POC Glucose 134 mg/dl (70-99) H 07/06/22 11:29 Calcium 8.9 mg/dl (8.5-10.1) 07/06/22 07:26 Magnesium 2.0 mg/dl (1.7-2.4) 07/06/22 07:26 Total Bilirubin 0.5 mg/dl (0.2-1.0) 07/05/22 15:17 AST 19 U/L (13-39) 07/05/22 15:17 ALT 8 U/L (7-52) 07/05/22 15:17 Alkaline Phosphatase 56 U/L (34-104) 07/05/22 15:17 Troponin I High Sens 3.6 pg/ml (0-14) 07/06/22 07:26 Total Protein 7.2 gm/dl (6.0-8.3) 07/05/22 15:17 Albumin 4.2 gm/dl (3.4-5.0) 07/05/22 15:17 Globulin 3.0 gm/dl (2.5-4.0) 07/05/22 15:17 Albumin/Globulin Ratio 1.4 (0.9-2) 07/05/22 15:17 Lipase 17 U/L (11-82) 07/05/22 15:17 SARS-CoV-2, RNA, NAAT NEGATIVE (NEGATIVE) 07/05/22 16:44 Impressions Chest X-Ray 07/05/22 15:36 XR chest 1V portable HISTORY: Atypical Chest Pain COMPARISON: Chest 12/06/2021. FINDINGS: No pneumothorax. No pleural effusions. The cardiac silhouette remains mildly enlarged. Small left basilar linear densities favor subsegmental atelectasis or scarring. Otherwise, no focal lung consolidations to suggest pneumonia. No evidence for pulmonary edema. IMPRESSION: Stable mild cardiomegaly. Otherwise, no acute process within the chest. ACT 112: Negative or not required by law. Electronically signed by: Marcial Lopez M.D. 07/05/2022 4:[address] 07/05/22 18:37 CT chest diagnostic wo con CT DOSE: 306.74 mGy.cm HISTORY: shortness of breath TECHNIQUE: Multiaxial CT images of the chest were performed without contrast. A dose lowering technique was utilized adhering to the principles of ALARA. COMPARISON: Chest CTA 12/06/2021. FINDINGS: The central airways are patent. No pneumothorax. No pleural effusions. Bibasilar linear densities favor subsegmental atelectasis. Otherwise, no focal lung consolidations to suggest pneumonia. No evidence for pulmonary edema. The visualized liver, spleen, and adrenal glands are unremarkable. Prior cholecystectomy. Moderate hiatus hernia, unchanged. Otherwise, normal caliber esophagus. No mediastinal or hilar lymphadenopathy. The heart remains enlarged. No pericardial effusion. Normal caliber thoracic aorta with mild calcified plaque. No fractures within the visualized osseous structures. IMPRESSION: 1. No focal lung consolidations to suggest pneumonia. 2. Mild cardiomegaly, unchanged. 3. Moderate hiatus hernia, unchanged. ACT 112: Negative or not required by law. Electronically signed by: Marcial Lopez M.D. 07/06/2022 7:25 AM Hospital Course (1) Chest pain: 49-year-old female with past medical history significant for diabetes, hyperlipidemia, and IBSpresented today with chest pain. Chest pain - presented sudden onset with radiation down left arm, left face, and back plus shortness of breath. - Pain is stabbing, lasts for several seconds. Improved but not resolved with aspirin and nitro, pain subsequently improved with hydromorphone 0.25 - Trops x4 wnl - EKG: No acute ST segment changes or T wave inversions - D-dimer negative - Lipase normal - COVID-negative - CXR: No acute findings - CT-chest: no acute findings - Pain better on discharge than previous. Does not appear to stem from heart. Likely GI as below vs MSK. - F/u pcp GERD (gastroesophageal reflux disease) H/o hiatal hernia - Continue home PPI. - Recommend addition of pepcid bid to alleviate GI symptoms - Last EGD 2014 where she required dilation, patient reports she is again having problems swallowing bread requesting another endoscopy. Scheduled for repeat later this month. - f/u GI Hypertension - BP initially elevated @ 222/92 on presentation, now normotensive Nitropaste and Dilaudid. - Elevated pressures could have contributed to her presenting symptoms. - Continue home losartan/HCTZ combo pill. Hormone replacement therapy - Continue estrogen therapy. Type 2 diabetes mellitus - She is borderline diabetic on low doses of metformin at home. - A1c 6.3% in Dec. Repeat pending. - Cont. home metformin (2) Hypertension: (3) Hormone replacement therapy: (4) GERD (gastroesophageal reflux disease): (5) Type 2 diabetes mellitus: (6) H/O shoulder surgery: (7) Irritable bowel syndrome with diarrhea: Total Time Total Time Spent Total Time Spent (In Minutes): >30 Discharge Plan Discharge Items Patient Disposition: Home - Self-Care Reason For Visit: CHEST PAIN Discharge Diagnosis: chest pain secondary to chronic hiatal hernia vs musculoskeletal Activity: Per Instructions section Non-emergency contact: Primary Care Provider and Bread Molder Call non-emergency contact if: you have any medication questions and your symptoms worsen Follow-up/Referrals: Travis Guerin, [Physician] - (has upcoming EGD end of month, can try to schedule earlier ) Aida Sumner MD [Primary Care Provider] - 07/08/22 3:00 pm Diet: Carb Consistent or DM2 and Heart Healthy Addtl Attending Provider Instructions: You were admitted to the hospital for chest pain. After conducting an EKG and following your cardiac enzymes, it was determined that her symptoms are likely not from your heart. It is more likely that your symptoms are stemming from your chronic hiatal hernia which you are scheduled to have an EGD performed later this month. It is also possible that your symptoms could be musculoskeletal in nature which should resolve with time if that is the case. I have referred you to Dr. Guerin in GI in case they can get you in earlier for the EGD, however, your symptoms do not appear to be emergent as you are hemodynamically stable. Going forward continue your Nexium at home. You may use Tylenol for pain relief. You should also use famotidine (Pepcid) 2 times a day which you can pickle cutter [id number]. This medication should also help alleviate your GI symptoms. Please follow-up with your primary care provider in the next 1 to 2 weeks for hospital follow-up care. Pending Studies at Discharge: No Stand-Alone Forms: My [employer] Medications and DC Order Prescriptions: Continued metformin 500 mg tablet 250 mg PO BID Qty: 90 3RF estradiol 0.01 % (0.1 mg/gram) cream 0.25 appful vaginal UD Qty: 42.5 3RF Rx Instructions: use 1/4 applicator in vagina twice weekly on Tuesdays and Fridays. estrogens-methyltestosterone 1.25-2.5 mg tablet 1 tab PO QAM Qty: 90 3RF epinephrine 0.3 mg/0.3 mL auto-injector 0.3 mg subcut UD PRN (Reason: anaphylaxis) esomeprazole magnesium [Nexium] 40 mg Capsule,Delayed Release(Dr/Ec) 40 mg PO QPM calcium carbonate [Tums] 200 mg calcium (500 mg) Tablet,Chewable 200 mg PO HS fluticasone propionate [Flonase Allergy Relief] 50 mcg/actuation Alfred,Suspension 2 spray INTRANASAL QAM losartan-hydrochlorothiazide 50-12.5 mg tablet 1 tab PO QAM hydroquinone 4 % cream 1 applic TOPICAL BID Rx Instructions: apply to face estradiol 0.5 mg tablet 0.5 mg PO QAM Discharge Orders: Discharge Order (Routine); Ordered 07/06/22 Ordered By: Cirilo Landrum/Other Patient Handouts: High Blood Sugar (Hyperglycemia), Hypoglycemia (Low Blood Sugar), Managing Type 2 Diabetes, What Is GERD?, GERD Lifestyle Changes, How Acid Reflux Affects Your Throat Admission Data Admit Date/Time: 07/05/22 18:05 Attending Provider: Marco A Chirinos Admit Provider: Marco A Chirinos Primary Care Provider: Aida Sumner Other Providers: Marco A Chirinos Other Interventions: Discharge Summary Assessment (RN) Last Done: 07/06/22 12:01 Supervising Physician Co-Signing Physician Notes Patient seen and examined, chart reviewed, case discussed with Ceci Hernández PA-C and I agree with the assessment and plan as above except as otherwise noted Labs and images reviewed Patient with great improvement in her chest pain by time of discharge, greatly reassured to know her cardiacEnzymes were normal. Did get some improvement with antiacid treatment. Denies fever, chills, sweats, lightheadedness, dizziness, chest pain at time of assessment. Lungs are clear, breathing is unlabored, heart rate is regular without murmurs rubs or gallops. Skin is warm and dry Chest pain, noncardiac. Suspect epigastric DDx includes cardiac with strong family history, GI as history of dilation and with Dewayne fundoplication Troponin on admission negative, opponent trended given cardiac risk normal Past medical history of early RI/ in family members in their 40s, patient with personal history of diabetes, hypertension EKG: No acute ST segment changes or T wave inversions on admission Patient with a story concerning for angina and left chest, neck, and jaw pain without history of MSK injury Pain improved but not resolved with aspirin and nitro, pain subsequently improved with hydromorphone 0.25 D-dimer negative Lipase normal COVID-negative CXR: No acute findings - CT-C normal Will have follow-up EGD, attempting to move up scheduling. 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 Was to be scheduled as outpatient per PCP, this is being moved up as noted above Resident Activity Tracking Resident Involvement: Resident Care Provided Care Provided: Adult Hospital Medicine
--- NOTE | 2022-07-06 17:13 | Billing Data ---
Date of Service July 06, 2022 Coding Level of Care Code D/C DAY MANAGEMENT >30 MINS
[2022-07-06] MEDS ORDERED: PANTOprazole 40 MG TAB PO SCH (21:00)
[2022-07-07 07:58] LABS: Estimated Average Glucose 140 mg/dl; Hemoglobin A1C 6.5 % (4.5-5.6)
--- NOTE | 2022-07-08 11:38 | Electrocardiogram Report ---
Test Reason : Blood Pressure : / mmHG Vent. Rate : 064 BPM Atrial Rate : 064 BPM P-R Int : 168 ms QRS Dur : 082 ms QT Int : 452 ms P-R-T Axes : 035 008 027 degrees QTc Int : 466 ms Poor data quality, interpretation may be adversely affected Normal sinus rhythm Normal ECG When compared with ECG of 05-JUL-2022 15:07, No significant change was found Confirmed by Bulmaro Polo ([id number]) on 07/08/2022 11:37:38 AM Referred By: REFERRED SELF Confirmed By:Joel Polo
== END 2022-07-06 13:23 | disposition home or self-care (01) ==
LOC: ED 14:49 → 2W 14:49

== ENCOUNTER 2024-06-18 19:52 | Observation (INO) ==
[2024-06-18 20:45] LABS: Basophils # (auto) 0.03 K/uL (0.00-0.20); Basophils % (auto) 0.2 %; Eosinophils # (auto) 0.02 K/uL (0.00-0.50); Eosinophils % (auto) 0.1 %; Hematocrit (blood only) 41.8 % (37.0-47.0); Hemoglobin 14.1 g/dl (12.0-16.0); Immature Granulocytes # (auto) 0.05 K/uL (0.01-0.20); Immature Granulocytes % (auto) 0.4 %; Lymphocytes # (auto) 2.77 K/uL (1.20-3.40); Mean Corpuscular Hemoglobin 32.6 pg (25.0-34.0); Mean Corpuscular Hgb Conc 33.7 g/dL (32.0-36.0); Mean Corpuscular Volume 96.8 fL (80.0-100.0); Mean Platelet Volume 9.5 fL (9.4-12.4); Monocytes # (auto) 0.92 K/uL (0.11-0.59); Monocytes % (auto) 6.6 %; Neutrophils # (auto) 10.09 K/uL (1.40-6.50); Neutrophils % (auto) 72.7 %; Platelet Count 341 K/uL (130-400); RDW Coefficient of Variation 13.2 % (11.5-14.5); Red Blood Count 4.32 M/uL (4.20-5.40); White Blood Count 13.88 K/ul (4.8-10.8)
[2024-06-18] MEDS: ONDANSETRON INJ 2 MG/ML 2 ML VIAL IV STA (21:25)
[2024-06-18 21:26] LABS: Bilirubin,Total 0.4 mg/dl (0.2-1.0); Calcium 9.5 mg/dl (8.6-10.3); Potassium 3.6 mmol/L (3.5-5.1)
[2024-06-18 21:32] LABS: Albumin Globulin Ratio 1.6 (0.9-2); BUN Creatinine Ratio 16.5 (10-20); Creatinine Clr Calc Pharmacy 61.6 ml/min; Est GFR (African American) 74.1 ml/min; Est GFR (Non-African American) 63.9 ml/min; Globulin 2.5 gm/dl (2.5-4.0); Total Protein 6.5 gm/dl (6.0-8.3); Troponin I High Sensitivity 6.2 pg/ml (0-14)
[2024-06-18 21:38] LABS: D Dimer 420 ug/L FEU (0-500)
--- NOTE | 2024-06-18 22:11 | Emergency Department Note ---
Impression & Plan Chest discomfort, Type 2 diabetes mellitus, Chest pain ED Provider Note NAME: LAUREN BERRY AGE: 69 SEX: F : 1955 ARRIVES VIA: Ambulance INFORMANT: Patient, ED PROVIDER(S): Harjit Chavez MD CHIEF COMPLAINT: Chest pain HPI: This is a 69-year-old female presenting for chest pain/fluttering. Patient notes that she was outside [facility] and began having some chest pressure, left-sided. It is down in her left upper quadrant of her abdomen. Radiates up into her chest and into her neck. She notes it does not go into her arm. No fevers or chills. She does note slight nausea as well. She reports no disorientation. History of PR in the parents. History of hypertension and diabetes otherwise. ROS: See above HPI for pertinent positives & negatives. A total of 10 systems reviewed and were otherwise negative. PAST MEDICAL HISTORY: See Below PAST SURGICAL HISTORY: See Below FAMILY HISTORY: See Below SOCIAL HISTORY: See Below HOME MEDICATIONS: See Below ALLERGIES: See Below VITALS: See Below PHYSICAL EXAMINATION: General: resting comfortably in no acute distress Head: Normocephalic and atraumatic Eyes: Normal inspection, extraocular muscles intact Ear, nose, throat: Normal external exam Neck: Normal range of motion Respiratory: lungs clear to auscultation bilaterally Cardiovascular: Regular rate/rhythm, no murmur GI: soft, nontender, no guarding or rebound Extremities: nontender, moves all extremities Neuro: The patient awake and alert, appropriately conversive, no focal deficits, symmetric faces Skin: Warm, dry, and intact MEDICAL DECISION MAKING: This is a 69-year-old female present for chest pain/fluttering. At this time he has reassuring vital signs. Low concern for dissection based on current symptoms. Not hypertensive, equal pulses, reassuring neurologic exam. No motor deficits. Will do ACS rule out as well. -Low concern for PE but will do D-dimer to help evaluate -D-dimer negative at this time -ECG independently interpreted by me with normal sinus rhythm, rate of 84, normal axis, normal MO, normal QRS, normal QTc, no ST segment elevations consistent with STEMI criteria -Chest Xray independently interpreted by me showing no pneumothorax, focal opacity, or pleural effusions. -Overall patient blood work is reassuring showing a slight leukocytosis of unclear etiology. Otherwise no some electrolyte disturbances. Negative D- dimer. Negative troponin. Upper respiratory panel negative -Patient has improvement in symptoms however with her left-sided chest pressure feeling to her neck, history of PR in parents, discussed admission versus discharge. Her and family are more comfortable with inpatient mission at this time. Will admit for further workup including cardiac workup. Differential diagnosis: ACS, PE, dissection, viral illness, upper respiratory infection ER treatment provided: See below Independent History obtained from: , son, grandchildren Diagnostics interpreted by me: ECG: See above Cardiac Monitoring: An order was placed for continuous cardiac monitoring. The monitor shows a rate of 66 with sinus rhythm. Laboratory studies: As stated above and show below. Imaging studies: See below. Past Med/Surg History Problem List (Updated 06/19/24 @ 13:01 by Harjit Chavez MD) Chest pain (Acute) Chest discomfort (Acute) Hydronephrosis Post-operative pain Encounter for preoperative assessment Nephrolithiasis Wrist sprain Tick bite Osteoarthritis of left knee Fatigue Snoring Nocturnal hypoxemia Crepitus of joint of left knee Patellar instability of left knee Knee effusion, left Venous reflux (Chronic) Statin myopathy (Chronic) Irritable bowel syndrome with diarrhea (Chronic) last "flare up" Dec 2023 Hyperlipidemia (Chronic) statin intolerance Stenosis of lumbosacral spine (Chronic) Rosacea (Chronic) Gastroparesis (Chronic) Type 2 diabetes mellitus (Chronic) Hypertension (Chronic) Hormone replacement therapy (Chronic) GERD (gastroesophageal reflux disease) (Chronic) Medical History History of asthma no problems > 1 year History of COVID-19 x2, not hospitalized, resolved Nephrolithiasis Surgical History Hx of esophagogastroduodenoscopy EGD with dilation, multiple History of surgery on lower extremity IT band, left leg Hx of bilateral cataract extraction History of Dewayne fundoplication Family history of reaction to anesthesia per pt, brother 'had a mild stroke during heart cath' H/O left knee surgery Hx of inguinal hernia surgery (11/22/19) Right Open Direct Inguinal Hernia Repair, Bassini Repair, Lipoma of round ligament Dr. Mcgraw: GA: LMA #4, attempt x 1 atraumatic History of laparotomy FOR RUPTURED ECTOPIC -REMOVAL TUBE AND OVARY History of colonoscopy Difficult airway for intubation H/o awake fiberoptic intubation with L5-S1 laminectomy 01/31/14. Had successful intubation 11/22/19: LMA #4, attempt x 1 atraumatic History of cholecystectomy History of repair of rotator cuff RX1, LX1 History of surgery left bicep repair History of eye surgery BLOW OUT FRACTURE RIGHT EYE History of sinus surgery History of ankle surgery rt X3 History of back surgery L5-S1 laminectomy 01/31/14: awake fiberoptic intubation History of tonsillectomy History of total abdominal hysterectomy and bilateral salpingo-oophorectomy Family History Brother Family history of reaction to anesthesia pt reports brother had allergic reaction to anesthesia and suffered from stroke after anesthesia Hypertension Stroke Cancer Brother Family history of diabetes mellitus Sister Family history of diabetes mellitus Hypertension Cerebral aneurysm Father Myocardial infarction Aunt Breast cancer Grandfather Asthma Mother Cardiac disorder Hypertension Stroke Hearing loss Cerebral aneurysm Other Osteoporosis Denies family history of Ovarian cancer Colorectal cancer Social History Smoking Status: Never smoker Second Hand Exposure: No; Do You Dip or Chew Tobacco: No; Hx Alcohol Use: Yes Alcohol type: wine Hx Substance Use: No Preferred Language: Nepali Communication Ability: Effective Visual Impairment: No Limitations Administrative Underwriter Required: No Beliefs That Will Affect Care: None marital status: Current Living Situation: Spouse current occupational status: retired Feels Safe at Home: Yes Childhood Exposure to Second-Hand Smoke: No Diet: regular caffeine: Yes Dental Care, Regularly: Yes Physical Activity Frequency: 3-4 Times per Week Seatbelt Use: always Sunscreen Use: Yes Assistive Devices: None Allergies Allergies Allergy/AdvReac Type Severity Reaction Status Date / Time codeine Allergy Severe SHORTNESS Verified 06/19/24 00:17 OF BREATH kiwi Allergy Severe ITCHING, Verified 06/19/24 00:17 TONGUE AND LIPS SWELL latex Allergy Severe SHORTNESS Verified 06/19/24 00:17 OF BREATH,MOUTH GOT RED WITH DENTAL WORK/GLOVES Influenza Virus Vaccines Allergy Intermediate Swelling Verified 06/19/24 00:17 of the Eye,rash tetanus toxoid, adsorbed Allergy Intermediate LUMP ON Verified 06/19/24 00:17 ARM AFTER INJECTION Sulfa (Sulfonamide Allergy Mild RASH Verified 06/19/24 00:17 Antibiotics) cefuroxime Allergy Unknown PT DOESN'T Verified 06/19/24 00:17 REMEMBER metoclopramide AdvReac Intermediate SEVERE Verified 06/19/24 00:17 MUSCLE SORENESS morphine AdvReac Intermediate severe n/v Verified 06/19/24 00:17 pravastatin AdvReac Intermediate muscle pain Verified 06/19/24 00:17 yellow jacket Allergy Severe Anaphylaxis Uncoded 06/19/24 00:17 Home Meds Home Medications Medication Instructions Recorded Confirmed epinephrine 0.3 mg/0.3 mL 0.3 mg subcut UD PRN anaphylaxis 10/22/19 06/18/24 injection, auto-injector aspirin 81 mg tablet,delayed 81 mg PO QAM 02/18/24 06/18/24 release calcium carbonate (Tums) 300 mg PO HS 02/18/24 06/19/24 docusate sodium 50 mg capsule 50 mg PO QAM 02/18/24 06/19/24 (Stool Softener) esomeprazole magnesium 20 mg 20 mg PO HS 02/18/24 06/18/24 capsule,delayed release (Nexium 24HR) meloxicam 7.5 mg tablet 7.5 mg PO QAM 02/18/24 06/18/24 losartan 50 mg-hydrochlorothiazide 1 tab PO QAM 06/18/24 06/18/24 12.5 mg tablet Previous Rx's Medication Instructions Recorded estradiol 0.01% (0.1 mg/gram) 0.25 appful vaginal UD #42.5 grams 11/04/22 vaginal cream semaglutide 2 mg/dose (8 mg/3 mL) 2 mg (0.75 mL) subcut Q7D 84 days 11/13/23 subcutaneous pen injector #9 mL estradiol 0.5 mg tablet 0.5 mg PO QAM #90 tabs 12/16/23 ondansetron HCl 4 mg tablet 4 mg PO Q8H PRN nausea and 03/01/24 vomiting #20 tabs esterified 1 tab PO QAM #90 tabs 03/18/24 estrogens-methyltestosterone 1.25 mg-2.5 mg tablet Results & Data (ED) Vital Signs Vital Signs - 24 hr 06/18/24 19:58 06/18/24 20:00 08/17/24 22:00 Temperature 36.7 C Temperature Source Oral Pulse Rate 84 80 Pulse Rate [Finger] 70 Respiratory Rate 20 20 Blood Pressure 143/85 H Blood Pressure [Right Arm] 124/77 Blood Pressure Mean 104 Blood Pressure Mean [Right Arm] 92 Pulse Oximetry 95 94 Oxygen Delivery Method Room Air Room Air Sepsis Recent Fever Within 48 Hours No Sepsis New/Unexplained Change in Mental Status No Sepsis Action Taken by Nursing No Action Required 06/18/24 23:56 Temperature Temperature Source Pulse Rate 74 Pulse Rate [Finger] Respiratory Rate Blood Pressure Blood Pressure [Right Arm] Blood Pressure Mean Blood Pressure Mean [Right Arm] Pulse Oximetry Oxygen Delivery Method Sepsis Recent Fever Within 48 Hours Sepsis New/Unexplained Change in Mental Status Sepsis Action Taken by Nursing Laboratory Data 06/18/24 20:21 06/19/24 06:11 Lab Results 06/18/24 06/18/24 06/18/24 Range/Units 20:21 20:23 21:27 WBC 13.88 H (4.8-10.8) K/ul RBC 4.32 (4.20-5.40) M/uL Hgb 14.1 (12.0-16.0) g/dl Hct 41.8 (37.0-47.0) % MCV 96.8 (80.0-100.0) fL MCH 32.6 (25.0-34.0) pg MCHC 33.7 (32.0-36.0) g/dL RDW Std Deviation 47.0 H (36.4-46.3) fL RDW Coeff of Romaine 13.2 (11.5-14.5) % Plt Count 341 (130-400) K/uL MPV 9.5 (9.4-12.4) fL Immature Gran % (Auto) 0.4 % Neut % (Auto) 72.7 % Lymph % (Auto) 20.0 % [place] % (Auto) 6.6 % Eos % (Auto) 0.1 % Baso % (Auto) 0.2 % Neut # (Auto) 10.09 H (1.40-6.50) K/uL Lymph # (Auto) 2.77 (1.20-3.40) K/uL [place] # (Auto) 0.92 H (0.11-0.59) K/uL Eos # (Auto) 0.02 (0.00-0.50) K/uL Baso # (Auto) 0.03 (0.00-0.20) K/uL Immature Gran # (Auto) 0.05 (0.01-0.20) K/uL D-Dimer 420 (0-500) ug/L FEU Sodium 136 (136-145) mmol/L Potassium 3.6 (3.5-5.1) mmol/L Chloride 105 (98-107) mmol/L Carbon Dioxide 24 (21-32) mmol/L Anion Gap 7 (3-11) BUN 15 (6-23) mg/dl Creatinine 0.91 (0.6-1.2) mg/dl Est Cr Clr Drug Dosing 61.6 ml/min Est GFR ( Amer) 74.1 ml/min Est GFR (Non-Af Amer) 63.9 ml/min BUN/Creatinine Ratio 16.5 (10-20) Glucose 97 (70-99(Fasting)) mg/dl Calcium 9.5 (8.6-10.3) mg/dl Total Bilirubin 0.4 (0.2-1.0) mg/dl AST 18 (13-39) U/L ALT 10 (7-52) U/L Alkaline Phosphatase 64 (34-104) U/L Troponin I High Sens 6.2 (0-14) pg/ml Total Protein 6.5 (6.0-8.3) gm/dl Albumin 4.0 (3.4-5.0) gm/dl Globulin 2.5 (2.5-4.0) gm/dl Albumin/Globulin Ratio 1.6 (0.9-2) Lipase 30 (11-82) U/L Adenovirus (PCR) Not Detected (NotDetected) B. pertussis DNA (PCR) Not Detected (NotDetected) B.parapertussis DNA PCR Not Detected (NotDetected) C. pneumoniae DNA (PCR) Not Detected (NotDetected) Coronavirus OC43 (PCR) Not Detected (NotDetected) Coronavirus HKU1 (PCR) Not Detected (NotDetected) Coronavirus 229E (PCR) Not Detected (NotDetected) SARS-CoV-2 (PCR) Not Detected (NotDetected) Coronavirus NL63 (PCR) Not Detected (NotDetected) Human Metapneumovir PCR Not Detected (NotDetected) Influenza Type A (PCR) Not Detected (NotDetected) Influenza Type B (PCR) Not Detected (NotDetected) M. pneumoniae (PCR) Not Detected (NotDetected) Parainfluenza 1 (PCR) Not Detected (NotDetected) Parainfluenza 2 (PCR) Not Detected (NotDetected) Parainfluenza 3 (PCR) Not Detected (NotDetected) Parainfluenza 4 (PCR) Not Detected (NotDetected) RSV (PCR) Not Detected (NotDetected) Entero/Rhino (PCR) Not Detected (NotDetected) Administered Medications Acetaminophen (Acetaminophen 325 Mg Tab) 650 mg PO Q4H PRN PRN Reason: pain/fever Stop: 07/19/24 01:39 Last Admin: 06/19/24 08:15 Dose: 650 mg Documented By: ANIYAH Aspirin (Aspirin 81 Mg Ectab) 81 mg PO [facility] Stop: 07/19/24 08:59 Last Admin: 06/19/24 08:12 Dose: 81 mg Documented By: ANIYAH Enoxaparin Sodium (Enoxaparin Inj 40 Mg/0.4 Ml Syr) 40 mg SQ Q24H [facility] Stop: 07/19/24 08:59 Last Admin: 06/19/24 08:12 Dose: 40 mg Documented By: ANIYAH HCTZ/Losartan Potassium (Losartan/Hctz 50/12.5mg Tab) 1 tab PO [facility] Stop: 07/19/24 08:59 Last Admin: 06/19/24 08:12 Dose: 1 tab Documented By: ANIYAH Insulin Aspart (Insulin Aspart Per Unit Charge) 0 units SC ACHS [facility] Stop: 07/19/24 07:29 Last Admin: 06/19/24 12:32 Dose: 1 units Documented By: ANIYAH Co-signed By: KEMI Admin: 06/19/24 08:43 Dose: 2 units Documented By: ANIYAH Co-signed By: KEMI Insulin Glargine (Lantus Per Unit Charge) 5 units SQ BID [facility] Stop: 07/19/24 08:59 Last Admin: 06/19/24 08:42 Dose: 5 units Documented By: ANIYAH Co-signed By: MTM Meloxicam (Meloxicam 7.5 Mg Tab) 7.5 mg PO QAM [facility] Stop: 07/19/24 08:59 Last Admin: 06/19/24 08:12 Dose: 7.5 mg Documented By: ANIYAH Miscellaneous (Estratest - Order Awaiting Action) 1 each N/A QS [facility] Stop: 07/19/24 07:59 Last Admin: 06/19/24 08:12 Dose: Not Given Documented By: ANIYAH Ondansetron HCl (Ondansetron Inj 2 Mg/Ml 2 Ml Vial) 4 mg IV Q6H PRN PRN Reason: Nausea Stop: 07/19/24 01:39 Last Admin: 06/19/24 08:15 Dose: 4 mg Documented By: ANIYAH Pantoprazole Sodium (Pantoprazole 40 Mg Tab) 40 mg PO DAILY [facility] Stop: 07/19/24 08:59 Last Admin: 06/19/24 08:12 Dose: 40 mg Documented By: ANIYAH Discontinued Medications Calcium Carbonate (Calcium Carbonate 500 Mg Chewable Tab) 500 mg PO NOW STA Stop: 06/18/24 23:58 Last Admin: 06/19/24 00:44 Dose: 500 mg Documented By: CELIA Estradiol (Estradiol 1 Mg Tab) 0.5 mg PO [facility]; Protocol Stop: 07/19/24 08:59 Last Admin: 06/19/24 08:13 Dose: Not Given Documented By: ANIYAH Ondansetron HCl (Ondansetron Inj 2 Mg/Ml 2 Ml Vial) 4 mg IV NOW STA Stop: 06/18/24 21:20 Last Admin: 06/18/24 21:25 Dose: 4 mg Documented By: LUISITO Pantoprazole Sodium (Pantoprazole 40 Mg Tab) 40 mg PO NOW STA Stop: 06/18/24 23:58 Last Admin: 06/19/24 00:44 Dose: 40 mg Documented By: CELIA Imaging Data Radiologist's Impression: Chest X-Ray 06/18/24 20:02 XR chest 1V portable HISTORY: Chest pain, nonspecific COMPARISON: Chest 02/15/2024. FINDINGS: The lungs are clear. Cardiac silhouette is normal in size. No pleural effusions. No pneumothorax. Small hiatus hernia again noted. IMPRESSION: No acute process. ACT 112: Negative or not required by law. Electronically signed by: Marcial Lopez M.D. 06/19/2024 8:01 AM Discharge Plan Visit Data Chief Complaint: Cardiac Assessment Stated Complaint: FLUTTERING SENSATION IN CHEST, NAUSEA ED Provider: Harjit Chavez Discharge Problem: Chest discomfort, Type 2 diabetes mellitus, Chest pain Patient Disposition: Admitted As Inpatient Discharge Instructions Interventions: ED Discharge Assessment Last Done: 06/19/24 01:20
[2024-06-18 22:22] LABS: Adenovirus PCR Not Detected (NotDetected); Bordetella parapertussis PCR Not Detected (NotDetected); Bordetella pertussis PCR Not Detected (NotDetected); Chlamydia pneumoniae PCR Not Detected (NotDetected); Coronavirus 229E PCR Not Detected (NotDetected); Coronavirus CoV-2 (COVID19)PCR Not Detected (NotDetected); Coronavirus HKU1 PCR Not Detected (NotDetected); Coronavirus NL63 PCR Not Detected (NotDetected); Coronavirus OC43PCR Not Detected (NotDetected); Human Metapneumovirus PCR Not Detected (NotDetected); Influenza A PCR Not Detected (NotDetected); Influenza B PCR Not Detected (NotDetected); Mycoplasma pneumoniae PCR Not Detected (NotDetected); Parainfluenza Virus 1 PCR Not Detected (NotDetected); Parainfluenza Virus 2 PCR Not Detected (NotDetected); Parainfluenza Virus 3 PCR Not Detected (NotDetected); Parainfluenza Virus 4 PCR Not Detected (NotDetected); Respiratory Syncytial VirusPCR Not Detected (NotDetected); Rhinovirus/Enterovirus PCR Not Detected (NotDetected)
--- NOTE | 2024-06-18 23:57 | History & Physical Report ---
Date of Service June 18, 2024 Assessment & Plan (1) Heart palpitations: Plan: 69yo female presenting with chest palpitations, dizziness, near syncope and chest discomfort ongoing since 14:00 today. Etiology unclear. EKG is unremarkable. Electrolytes WNL as is initial troponin (repeat pending). She does have a mildly elevated WBC count = 13.88 Moderate risk based on HEART score - h/o DM, HTN and family history -Observation to medical with telemetry -Troponin q 6 hours x 2 -Continue home ASA 81mg po daily -Continue Losartan-HCTZ -If no arrhythmia discovered, may benefit from outpatient cardiac monitoring (2) Chest discomfort: Plan: Patient with moderate risk HEART score due to FHx, and personal history of HTN and DM -Trend troponin -Telemetry monitoring Plan Chronic Medical Conditions: GERD - patient with h/o GERD, s/p Dewayne fundoplication. She endorses some indigestion and heart burn symptoms now. -Maalox PRN -TUMS PRN -Protonix 40mg po daily Diabetes - overall well controlled. Last HgbA1C on 02/15/24 = 6.2 -Hold home medications -Lantus 5u BID with ISS F/E/N - Saline lock. Electrolytes WNL, Mg pending, CC/AHA diet as tolerated Ppx - Lovenox Code - Full Dispo - Observation to medical with telemetry History of Present Illness Chief Complaint: palpitations, nausea Primary Care Provider: Aida Sumner MD Kelley Witt is a 69yo female with history of DM, HTN, GERD and family history of CAD (Father with [place] at age 41, mother with [place] at age 69, three brothers with heart disease) presenting with chest discomfort and palpitations. Patient has been in her usual state of health with no new complaints. She was at the [employer] today - around 14:00 she developed a fluttering sensation in her chest and feeling lightheaded. She drank some water, ate part of a sandwich and sat down to rest. Her symptoms persisted throughout the afternoon. Around 18:00 she felt more dizzy, weak and near syncopal as well as short of breath. She had some mild anterior chest discomfort as well as pain in her neck and back and nausea. Her heart rate continued to be fast and triggered her watch. She went to the tent to get her blood sugar and pressure checked and reports both were ok. She was seen by the paramedics and was recommended that she come to the ER. Patient still with intermittent chest discomfort and palpitations. Chest discomfort is non-positional, non-pleuritic and non-exertional. Allergies Allergy/AdvReac Type Severity Reaction Status Date / Time codeine Allergy Severe SHORTNESS Verified 06/19/24 00:17 OF BREATH kiwi Allergy Severe ITCHING, Verified 06/19/24 00:17 TONGUE AND LIPS SWELL latex Allergy Severe SHORTNESS Verified 06/19/24 00:17 OF BREATH,MOUTH GOT RED WITH DENTAL WORK/GLOVES Influenza Virus Vaccines Allergy Intermediate Swelling Verified 06/19/24 00:17 of the Eye,rash tetanus toxoid, adsorbed Allergy Intermediate LUMP ON Verified 06/19/24 00:17 ARM AFTER INJECTION Sulfa (Sulfonamide Allergy Mild RASH Verified 06/19/24 00:17 Antibiotics) cefuroxime Allergy Unknown PT DOESN'T Verified 06/19/24 00:17 REMEMBER metoclopramide AdvReac Intermediate SEVERE Verified 06/19/24 00:17 MUSCLE SORENESS morphine AdvReac Intermediate severe n/v Verified 06/19/24 00:17 pravastatin AdvReac Intermediate muscle pain Verified 06/19/24 00:17 yellow jacket Allergy Severe Anaphylaxis Uncoded 06/19/24 00:17 Home Medications Medication Instructions Recorded Confirmed Type epinephrine 0.3 mg/0.3 mL 0.3 mg subcut UD PRN anaphylaxis 10/22/19 06/18/24 History injection, auto-injector estradiol 0.01% (0.1 mg/gram) 0.25 appful vaginal UD #42.5 grams 11/04/22 06/18/24 Rx vaginal cream semaglutide 2 mg/dose (8 mg/3 mL) 2 mg (0.75 mL) subcut Q7D 84 days 11/13/23 Rx subcutaneous pen injector #9 mL estradiol 0.5 mg tablet 0.5 mg PO QAM #90 tabs 12/16/23 06/18/24 Rx aspirin 81 mg tablet,delayed 81 mg PO QAM 02/18/24 06/18/24 History release calcium carbonate (Tums) 300 mg PO HS 02/18/24 06/19/24 History docusate sodium 50 mg capsule 50 mg PO QAM 02/18/24 06/19/24 History (Stool Softener) esomeprazole magnesium 20 mg 20 mg PO HS 02/18/24 06/18/24 History capsule,delayed release (Nexium 24HR) meloxicam 7.5 mg tablet 7.5 mg PO QAM 02/18/24 06/18/24 History ondansetron HCl 4 mg tablet 4 mg PO Q8H PRN nausea and 03/01/24 06/19/24 Rx vomiting #20 tabs esterified 1 tab PO QAM #90 tabs 03/18/24 06/18/24 Rx estrogens-methyltestosterone 1.25 mg-2.5 mg tablet losartan 50 mg-hydrochlorothiazide 1 tab PO QAM 06/18/24 06/18/24 History 12.5 mg tablet Past Med/Surg History Problem List (Updated 06/19/24 @ 00:35 by Halle Garcia DO) Chest discomfort Hydronephrosis Post-operative pain Encounter for preoperative assessment Nephrolithiasis Wrist sprain Tick bite Osteoarthritis of left knee Fatigue Snoring Nocturnal hypoxemia Crepitus of joint of left knee Patellar instability of left knee Knee effusion, left Venous reflux (Chronic) Statin myopathy (Chronic) Irritable bowel syndrome with diarrhea (Chronic) last "flare up" Dec 2023 Hyperlipidemia (Chronic) statin intolerance Stenosis of lumbosacral spine (Chronic) Rosacea (Chronic) Gastroparesis (Chronic) Type 2 diabetes mellitus (Chronic) Hypertension (Chronic) Hormone replacement therapy (Chronic) GERD (gastroesophageal reflux disease) (Chronic) Medical History History of asthma no problems > 1 year History of COVID-19 x2, not hospitalized, resolved Nephrolithiasis Surgical History Hx of esophagogastroduodenoscopy EGD with dilation, multiple History of surgery on lower extremity IT band, left leg Hx of bilateral cataract extraction History of Dewayne fundoplication Family history of reaction to anesthesia per pt, brother 'had a mild stroke during heart cath' H/O left knee surgery Hx of inguinal hernia surgery (11/22/19) Right Open Direct Inguinal Hernia Repair, Bassini Repair, Lipoma of round ligament Dr. Mcgraw: GA: LMA #4, attempt x 1 atraumatic History of laparotomy FOR RUPTURED ECTOPIC -REMOVAL TUBE AND OVARY History of colonoscopy Difficult airway for intubation H/o awake fiberoptic intubation with L5-S1 laminectomy 01/31/14. Had successful intubation 11/22/19: LMA #4, attempt x 1 atraumatic History of cholecystectomy History of repair of rotator cuff RX1, LX1 History of surgery left bicep repair History of eye surgery BLOW OUT FRACTURE RIGHT EYE History of sinus surgery History of ankle surgery rt X3 History of back surgery L5-S1 laminectomy 01/31/14: awake fiberoptic intubation History of tonsillectomy History of total abdominal hysterectomy and bilateral salpingo-oophorectomy Family History Brother Family history of reaction to anesthesia pt reports brother had allergic reaction to anesthesia and suffered from stroke after anesthesia Hypertension Stroke Cancer Brother Family history of diabetes mellitus Sister Family history of diabetes mellitus Hypertension Cerebral aneurysm Father Myocardial infarction Aunt Breast cancer Grandfather Asthma Mother Cardiac disorder Hypertension Stroke Hearing loss Cerebral aneurysm Other Osteoporosis Denies family history of Ovarian cancer Colorectal cancer Social History Smoking Status: Never smoker Second Hand Exposure: No; Do You Dip or Chew Tobacco: No; Hx Alcohol Use: Yes Alcohol type: wine Hx Substance Use: No Preferred Language: Georgian Communication Ability: Effective Visual Impairment: No Limitations Product Support Analyst Required: No Beliefs That Will Affect Care: None marital status: Current Living Situation: Spouse current occupational status: retired Feels Safe at Home: Yes Childhood Exposure to Second-Hand Smoke: No Diet: regular caffeine: Yes Dental Care, Regularly: Yes Physical Activity Frequency: 3-4 Times per Week Seatbelt Use: always Sunscreen Use: Yes Assistive Devices: None Review of Systems Review of Systems: All systems reviewed & are unremarkable except as noted in HPI & below Physical Exam Physical Exam: General: patient resting comfortably, NAD, non-toxic in appearance, AA&O x 4 Skin: warm, dry, intact, no rashes or lesions HEENT: NC/AT, PERRL, EOMI, anicteric sclera, conjunctiva without injection, external ear normal to inspection and nontender, nares patent, moist mucus membranes, dentition intact, no oropharyngeal lesions, neck supple, trachea midline, no LAD, no thyromegaly, no JVD Heart: +S1/S2, regular, no m/r/g Lungs: equal air entry bilaterally, no rales/rhonchi/wheezes Abd: +BS, soft, NT/ND, no masses/organomegaly/ascites Ext: warm, 2+ pulses in UE/LE bilaterally, no clubbing/cyanosis or edema Neuro: nonfocal, patient AA&O x 4, speech intact, no facial droop, moving all extremities on command with equal strength 5/5 NSR noted on monitor during encounter. Minimal ectopy Results & Data Results & Data Vital Signs (Past 12 Hours) Vital Signs Temp Pulse Pulse Resp BP BP Pulse Ox 06/18/24 23:56 74 06/18/24 22:00 70 20 124/77 94 06/18/24 20:00 80 06/18/24 19:58 36.7 C 84 20 143/85 H 95 O2 Del Method 06/18/24 23:56 06/18/24 22:00 Room Air 06/18/24 20:00 06/18/24 19:58 Room Air Laboratory Results Laboratory Results WBC 13.88 K/ul (4.8-10.8) H 06/18/24 20:21 RBC 4.32 M/uL (4.20-5.40) 06/18/24 20:21 Hgb 14.1 g/dl (12.0-16.0) 06/18/24 20:21 Hct 41.8 % (37.0-47.0) 06/18/24 20:21 MCV 96.8 fL (80.0-100.0) 06/18/24 20:21 MCH 32.6 pg (25.0-34.0) 06/18/24 20:21 MCHC 33.7 g/dL (32.0-36.0) 06/18/24 20:21 RDW Std Deviation 47.0 fL (36.4-46.3) H 06/18/24 20:21 RDW Coeff of Romaine 13.2 % (11.5-14.5) 06/18/24 20:21 Plt Count 341 K/uL (130-400) 06/18/24 20:21 MPV 9.5 fL (9.4-12.4) 06/18/24 20:21 Immature Gran % (Auto) 0.4 % 06/18/24 20:21 Neut % (Auto) 72.7 % 06/18/24 20:21 Lymph % (Auto) 20.0 % 06/18/24 20:21 Caroline % (Auto) 6.6 % 06/18/24 20:21 Eos % (Auto) 0.1 % 06/18/24 20:21 Baso % (Auto) 0.2 % 06/18/24 20:21 Neut # (Auto) 10.09 K/uL (1.40-6.50) H 06/18/24 20:21 Lymph # (Auto) 2.77 K/uL (1.20-3.40) 06/18/24 20:21 Caroline # (Auto) 0.92 K/uL (0.11-0.59) H 06/18/24 20:21 Eos # (Auto) 0.02 K/uL (0.00-0.50) 06/18/24 20:21 Baso # (Auto) 0.03 K/uL (0.00-0.20) 06/18/24 20:21 Immature Gran # (Auto) 0.05 K/uL (0.01-0.20) 06/18/24 20:21 D-Dimer 420 ug/L FEU (0-500) 06/18/24 20:23 Sodium 136 mmol/L (136-145) 06/18/24 20:21 Potassium 3.6 mmol/L (3.5-5.1) 06/18/24 20:21 Chloride 105 mmol/L (98-107) 06/18/24 20:21 Carbon Dioxide 24 mmol/L (21-32) 06/18/24 20:21 Anion Gap 7 (3-11) 06/18/24 20:21 BUN 15 mg/dl (6-23) 06/18/24 20:21 Creatinine 0.91 mg/dl (0.6-1.2) 06/18/24 20:21 Est Cr Clr Drug Dosing 61.6 ml/min 06/18/24 20:21 Est GFR ( Amer) 74.1 ml/min 06/18/24 20:21 Est GFR (Non-Af Amer) 63.9 ml/min 06/18/24 20:21 BUN/Creatinine Ratio 16.5 (10-20) 06/18/24 20:21 Glucose 97 mg/dl (70-99(Fasting)) 06/18/24 20:21 Calcium 9.5 mg/dl (8.6-10.3) 06/18/24 20:21 Total Bilirubin 0.4 mg/dl (0.2-1.0) 06/18/24 20:21 AST 18 U/L (13-39) 06/18/24 20:21 ALT 10 U/L (7-52) 06/18/24 20:21 Alkaline Phosphatase 64 U/L (34-104) 06/18/24 20:21 Troponin I High Sens 6.2 pg/ml (0-14) 06/18/24 20:21 Total Protein 6.5 gm/dl (6.0-8.3) 06/18/24 20:21 Albumin 4.0 gm/dl (3.4-5.0) 06/18/24 20:21 Globulin 2.5 gm/dl (2.5-4.0) 06/18/24 20:21 Albumin/Globulin Ratio 1.6 (0.9-2) 06/18/24 20:21 Lipase 30 U/L (11-82) 06/18/24 20:21 Adenovirus (PCR) Not Detected (NotDetected) 06/18/24 21:27 B. pertussis DNA (PCR) Not Detected (NotDetected) 06/18/24 21:27 B.parapertussis DNA PCR Not Detected (NotDetected) 06/18/24 21:27 C. pneumoniae DNA (PCR) Not Detected (NotDetected) 06/18/24 21:27 Coronavirus OC43 (PCR) Not Detected (NotDetected) 06/18/24 21:27 Coronavirus HKU1 (PCR) Not Detected (NotDetected) 06/18/24 21:27 Coronavirus 229E (PCR) Not Detected (NotDetected) 06/18/24 21:27 SARS-CoV-2 (PCR) Not Detected (NotDetected) 06/18/24 21:27 Coronavirus NL63 (PCR) Not Detected (NotDetected) 06/18/24 21:27 Human Metapneumovir PCR Not Detected (NotDetected) 06/18/24 21:27 Influenza Type A (PCR) Not Detected (NotDetected) 06/18/24 21:27 Influenza Type B (PCR) Not Detected (NotDetected) 06/18/24 21:27 M. pneumoniae (PCR) Not Detected (NotDetected) 06/18/24 21:27 Parainfluenza 1 (PCR) Not Detected (NotDetected) 06/18/24 21:27 Parainfluenza 2 (PCR) Not Detected (NotDetected) 06/18/24 21:27 Parainfluenza 3 (PCR) Not Detected (NotDetected) 06/18/24 21:27 Parainfluenza 4 (PCR) Not Detected (NotDetected) 06/18/24 21:27 RSV (PCR) Not Detected (NotDetected) 06/18/24 21:27 Entero/Rhino (PCR) Not Detected (NotDetected) 06/18/24 21:27 ECG Additional Comments: EKG with NSR at 84bpm, normal ais, LS=357, QRS=76, OAv=813, no acute ischemic changes Code Status & VTE Plan VTE Prophylaxis Plan VTE Prophylaxis will be ordered: Yes PG Care Time/CCT Total # of Minutes Spent Total Time Spent with Patient: Total time spent is greater than 50% in coordination of care (as documented) at patient's floor/unit and/or counseling patient: Coding Level of Care Code 36521 INT INP/OBS CARE 2/55MIN Diagnoses Heart palpitations R00.2 Chest discomfort R07.89
[2024-06-19] MEDS: CALCIUM CARBONATE 500 MG CHEWABLE TAB PO STA (00:44)
[2024-06-19] MEDS: PANTOprazole 40 MG TAB PO STA (00:44)
[2024-06-19 01:02] LABS: Troponin I High Sensitivity 8.1 pg/ml (0-14)
[2024-06-19] MEDS ORDERED: CALCIUM CARBONATE 500 MG CHEWABLE TAB PO PRN (01:40)
[2024-06-19] MEDS ORDERED: GLUCOSE 40% GEL 15 GM TUBE PO PRN (01:40)
[2024-06-19] MEDS ORDERED: DEXTROSE 50% 50 ML SYRINGE IV PRN (01:40)
[2024-06-19] MEDS ORDERED: GLUCAGON FOR INJ 1 MG VIAL SQ PRN (01:40)
[2024-06-19] MEDS ORDERED: GLUCOSE 10 TAB/TUBE PO PRN (01:40)
[2024-06-19] MEDS ORDERED: CARBOHYDRATES FOR HYPOGLYCEMIA PO PRN (01:40)
[2024-06-19] MEDS ORDERED: ALUMINUM/MAGNESIUM SUSP 30 ML UDC PO PRN (01:40)
[2024-06-19 02:05] LABS: Magnesium 2.3 mg/dl (1.7-2.4)
[2024-06-19 06:58] LABS: Troponin I High Sensitivity 7.8 pg/ml (0-14)
--- NOTE | 2024-06-19 07:41 | Electrocardiogram Report ---
Test Reason : Blood Pressure : */* mmHG Vent. Rate : 84 BPM Atrial Rate : 84 BPM P-R Int : 166 ms QRS Dur : 76 ms QT Int : 368 ms P-R-T Axes : 52 4 11 degrees QTcB Int : 434 ms Normal sinus rhythm Normal ECG When compared with ECG of 04-Mar-2024 12:50, No significant change was found Confirmed by Lalo Rivera ([id number]) on 06/19/2024 7:41:20 AM Referred By: REFERRED SELF Confirmed By: Lalo Rivera
--- NOTE | 2024-06-19 08:03 | XRay Report ---
XR chest 1V portable HISTORY: Chest pain, nonspecific COMPARISON: Chest 02/15/2024. FINDINGS: The lungs are clear. Cardiac silhouette is normal in size. No pleural effusions. No pneumot horax. Small hiatus hernia again noted. IMPRESSION: No acute process. ACT 112: Negative or not required by law. Electronically signed by: Marcial Lopez M.D. 06/19/2024 8:01 AM
[2024-06-19] MEDS: ENOXAPARIN INJ 40 MG/0.4 ML SYR SQ SCH (08:12)
[2024-06-19] MEDS: MELOXICAM 7.5 MG TAB PO SCH (08:12)
[2024-06-19] MEDS: LOSARTAN/HCTZ 50/12.5MG TAB PO SCH (08:12)
[2024-06-19] MEDS: ASPIRIN 81 MG ECTAB PO SCH (08:12)
[2024-06-19] MEDS: PANTOprazole 40 MG TAB PO SCH (08:12)
[2024-06-19] MEDS: estradioL 1 MG TAB PO SCH (08:13)
[2024-06-19] MEDS: ONDANSETRON INJ 2 MG/ML 2 ML VIAL IV PRN (08:15)
[2024-06-19] MEDS: ACETAMINOPHEN 325 MG TAB PO PRN (08:15)
[2024-06-19] MEDS: LANTUS PER UNIT CHARGE SQ SCH (08:42)
[2024-06-19] MEDS: INSULIN ASPART PER UNIT CHARGE SC SCH (08:43)
[2024-06-19 08:55] LABS: BUN Creatinine Ratio 17.2 (10-20); Calcium 9.1 mg/dl (8.6-10.3); Creatinine Clr Calc Pharmacy 63.1 ml/min; Est GFR (African American) 78.2 ml/min; Est GFR (Non-African American) 67.5 ml/min; Potassium 3.9 mmol/L (3.5-5.1)
--- NOTE | 2024-06-19 11:54 | XCELERA ---
[id number] \\[email or web address]\[id number].pdf
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
[2024-06-20 07:52] VITALS: O2SAT 95
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
[2024-06-20 11:15] VITALS: BP 119/74; PULSE 67; RESP 18; TEMP 97.9
[2024-06-20] MEDS ORDERED: LANTUS PER UNIT CHARGE SQ SCH (21:00)
== END 2024-06-20 13:45 | disposition home or self-care (01) ==
LOC: 2N 19:52 → ED 19:52 → SUATTDRO 23:57 → 2N 06-19 01:20

== ENCOUNTER 2024-11-24 07:29 | Observation (INO) ==
[2024-11-24] MEDS: SODIUM CHLORIDE 0.9% 1,000 ML IV ONE ×2 (08:04→10:59)
[2024-11-24 08:06] LABS: iSTAT Creatinine 1.1 mg/dl (0.6-1.3); iSTAT Hemoglobin 16.7 g/dl (12.0-16.0); iSTAT Ionized Calcium 1.28 mmol/l (1.12-1.32); iSTAT Potassium 4.1 mmol/L (3.3-5.0)
--- NOTE | 2024-11-24 08:11 | Emergency Department Note ---
Impression & Plan SVT (supraventricular tachycardia), Chest pain, Elevated troponin, Elevated hemoglobin, Elevated hematocrit ED Provider Note NAME: LAUREN BERRY AGE: 69 SEX: F : 1955 ARRIVES VIA: Walk-In INFORMANT: Patient ED PROVIDER(S): Davide De Dios MD CHIEF COMPLAINT: Palpitations, chest pain PLAN: Disposition: Admit MEDICAL DECISION MAKING: The patient is a pleasant 69-year-old woman with a past medical history of hypertension,, IBS, GERD, hyperlipidemia, statin myopathy, history of total abdominal hysterectomy and bilateral salpingo-oophorectomy on chronic hormone replacement therapy who presents to the emergency department via walk-in for evaluation of palpitations racing heart which she noticed when she woke up this morning. She reports having history of similar episodes but is uncertain of the details. She reports some pressure in her chest but denies any history of chest pain with exertion or otherwise prior to this morning. She denies nausea, vomiting, diarrhea. Review of the patient's records demonstrates a negative stress echo in December 2021. TTE in June 2024 was unremarkable. Cardiac event monitor in July 2024 with no high-grade arrhythmias. On my evaluation, the patient is no acute distress afebrile with heart rate in the 180s and vital signs otherwise stable. She appears clinically dry. Heart rate did improve in the 180s down to the 140s-150s when the patient was placed supine and in Trendelenburg. However no cardioversion with vagal maneuver thereafter. However given positional improvement with her heart rate and with i-STAT demonstrating hemoglobin of 16.9 suggesting component of dehydration additional IV fluid hydration was provided and the patient did spontaneously convert to normal sinus rhythm in the 90s. EKG demonstrates SVT in the 180s without overt ST ovation or depression. Chest x-ray negative for acute cardiopulmonary process. WBC 15.2 K with neutrophilia but no left shift, nonspecific. H/H appears hemoconcentrated with hemoglobin of 16.1 and hematocrit of 47.9. Platelets also are concentrated at 457K. INR is normal. Glucose is 206 however chemistry without metabolic acidosis. Electrolytes unremarkable. Initial high- sensitivity troponin 7.3, within normal limits. Lipase is normal. Upon reevaluation patient did report feeling improvement following IV hydration with 2 L normal saline. Heart rate was steadily in the 70s. Blood pressure was improved. Patient reported some residual chest soreness but denied any shortness of breath. A repeat troponin was obtained. This subsequently did result elevated in the 90s. While this could be attributed to prolonged tachycardia given her chest pain the patient does agree with plan for admission for further management. Given the patient's tachycardia and chest pain and elevated troponin CT of the chest was ordered to exclude PE. Upon my reassessment following the patient walking to the bathroom she returned and felt her heart fluttering again and her SVT had returned to the 160s. Vagal maneuvers and Trendelenburg again attempted and while there was some improvement in rate to the 140s the patient had not spontaneously cardioverted as before. 5 mg of IV Lopressor ordered and CT of the chest ordered and pending. Case was d/w Dr. Engel [facility] hospitalist who will evaluate the patient for admission. CT of the chest subsequently negative for PE or acute cardiopulmonary process. Heart rate in normal sinus rhythm at 80 bpm following IV Lopressor. Further management per admitting team. Triage Nursing notes reviewed and agree them. Prior/external medical records reviewed Vital Signs: reviewed Differential diagnosis: Premature contractions, electrolyte abnormality, cardiac dysrhythmia, thyroid dysfunction, pulmonary embolism, infection, gastrointestinal, as well as other pathologies. ER treatment provided: See below. Diagnostics interpreted by me: ECG 0741: Supraventricular tachycardia, 185 bpm, no overt ST elevation or depression, QTc 435, QRS 70. ECG 0820: Normal sinus rhythm, 93 bpm, no ectopy, no overt ST ovation or depression, QTc 437, QRS 76. Cardiac Monitoring: An order for continuous cardiac monitoring was placed and demonstrated Supraventricular tachycardia, 185 bpm, no ectopy. Laboratory studies: See below Imaging studies: See below Consultation(s): Case was d/w Dr. Engel [facility] hospitalist who will evaluate the patient for admission. HPI: The patient is a pleasant 69-year-old woman with a past medical history of hypertension,, IBS, GERD, hyperlipidemia, statin myopathy, history of total abdominal hysterectomy and bilateral salpingo-oophorectomy on chronic hormone replacement therapy who presents to the emergency department via walk-in for evaluation of palpitations racing heart which she noticed when she woke up this morning. She reports having history of similar episodes but is uncertain of the details. She reports some pressure in her chest but denies any history of chest pain with exertion or otherwise prior to this morning. She denies nausea, vomiting, diarrhea. Review of the patient's records demonstrates a negative stress echo in December 2021. TTE in June 2024 was unremarkable. Cardiac event monitor in July 2024 with no high-grade arrhythmias. ROS: See above HPI for pertinent positives & negatives. A total of 10 systems reviewed and were otherwise negative. VITALS:See Below PHYSICAL EXAMINATION: GENERAL: Awake, alert, fatigued-appearing, in no distress HENT: Normocephalic, atraumatic. Oropharynx with dry mucous membranes and otherwise unremarkable. EYES: Normal conjunctiva. Sclera non-icteric. NECK: Supple. No nuchal rigidity. FROM. No JVD. RESPIRATORY: Clear to auscultation. CARDIAC: Tachycardic rate, normal rhythm. Extremities warm and well perfused. Pulses equal. ABDOMEN: Soft, non-distended. No tenderness to palpation. No rebound or guarding. No masses. MUSCULOSKELETAL: Chest examination reveals no tenderness. The back is symmetrical on inspection without obvious abnormality. There is no CVA tenderness to palpation. No joint edema. LOWER EXTREMITIES: Calves are equal size bilaterally and non-tender. No edema. No discoloration. NEURO: Normal sensorium. No sensory or motor deficits noted. SKIN: No rash or jaundice noted. ED COURSE: I have personally spent greater than 35 minutes of critical care time in the direct management of this patient. This includes bedside care, interpretation of diagnostic studies, and testing, discussion with consultants, patient, and family members, and other required patient management activities. This 35 minutes is in excess of all separately billable procedures. Davide De Dios MD Past Med/Surg History Problem List (Updated 11/24/24 @ 16:26 by Davide De Dios MD) Elevated hematocrit (Acute) Elevated hemoglobin (Acute) Elevated troponin (Acute) Chest pain (Acute) SVT (supraventricular tachycardia) (Acute) Nephrolithiasis (Chronic) Osteoarthritis of left knee (Chronic) Venous reflux (Chronic) Statin myopathy (Chronic) Irritable bowel syndrome with diarrhea (Chronic) Hyperlipidemia (Chronic) statin intolerance Stenosis of lumbosacral spine (Chronic) Rosacea (Chronic) Gastroparesis (Chronic) Type 2 diabetes mellitus (Chronic) Hypertension (Chronic) Hormone replacement therapy (Chronic) GERD (gastroesophageal reflux disease) (Chronic) Surgical History Hx of esophagogastroduodenoscopy EGD with dilation, multiple History of surgery on lower extremity IT band, left leg Hx of bilateral cataract extraction History of Dewayne fundoplication Family history of reaction to anesthesia per pt, brother 'had a mild stroke during heart cath' H/O left knee surgery Hx of inguinal hernia surgery (11/22/19) Right Open Direct Inguinal Hernia Repair, Bassini Repair, Lipoma of round ligament Dr. Mcgraw: GA: LMA #4, attempt x 1 atraumatic History of laparotomy FOR RUPTURED ECTOPIC -REMOVAL TUBE AND OVARY History of colonoscopy Difficult airway for intubation H/o awake fiberoptic intubation with L5-S1 laminectomy 01/31/14. Had successful intubation 11/22/19: LMA #4, attempt x 1 atraumatic History of cholecystectomy History of repair of rotator cuff RX1, LX1 History of surgery left bicep repair History of eye surgery BLOW OUT FRACTURE RIGHT EYE History of sinus surgery History of ankle surgery rt X3 History of back surgery L5-S1 laminectomy 01/31/14: awake fiberoptic intubation History of tonsillectomy History of total abdominal hysterectomy and bilateral salpingo-oophorectomy Family History Brother Family history of reaction to anesthesia pt reports brother had allergic reaction to anesthesia and suffered from stroke after anesthesia Hypertension Stroke Cancer Brother Family history of diabetes mellitus Sister Family history of diabetes mellitus Hypertension Cerebral aneurysm Father Myocardial infarction Aunt Breast cancer Grandfather Asthma Mother Cardiac disorder Hypertension Stroke Hearing loss Cerebral aneurysm Other Osteoporosis Denies family history of Ovarian cancer Colorectal cancer Social History Smoking Status: Never smoker Second Hand Exposure: No; Do You Dip or Chew Tobacco: No; Hx Alcohol Use: Yes Alcohol type: wine Hx Substance Use: No Preferred Language: Telugu Communication Ability: Effective Visual Impairment: No Limitations Electrician Bus Required: No Beliefs That Will Affect Care: None marital status: Current Living Situation: Spouse current occupational status: retired Feels Safe at Home: Yes Childhood Exposure to Second-Hand Smoke: No Diet: regular caffeine: Yes Dental Care, Regularly: Yes Physical Activity Frequency: 3-4 Times per Week Seatbelt Use: always Sunscreen Use: Yes Assistive Devices: None Allergies Allergies Allergy/AdvReac Type Severity Reaction Status Date / Time codeine Allergy Severe SHORTNESS Verified 11/24/24 10:28 OF BREATH kiwi Allergy Severe ITCHING, Verified 11/24/24 10:28 TONGUE AND LIPS SWELL latex Allergy Severe SHORTNESS Verified 11/24/24 10:28 OF BREATH,MOUTH GOT RED WITH DENTAL WORK/GLOVES Influenza Virus Vaccines Allergy Intermediate Swelling Verified 11/24/24 10:28 of the Eye,rash tetanus toxoid, adsorbed Allergy Intermediate LUMP ON Verified 11/24/24 10:28 ARM AFTER INJECTION Sulfa (Sulfonamide Allergy Mild RASH Verified 11/24/24 10:28 Antibiotics) cefuroxime Allergy Unknown PT DOESN'T Verified 11/24/24 10:28 REMEMBER metoclopramide AdvReac Intermediate SEVERE Verified 11/24/24 10:28 MUSCLE SORENESS morphine AdvReac Intermediate severe n/v Verified 11/24/24 10:28 pravastatin AdvReac Intermediate muscle pain Verified 11/24/24 10:28 yellow jacket Allergy Severe Anaphylaxis Uncoded 11/24/24 10:28 Home Meds Home Medications Medication Instructions Recorded Confirmed epinephrine 0.3 mg/0.3 mL 0.3 mg subcut UD PRN anaphylaxis 10/22/19 11/24/24 injection, auto-injector aspirin 81 mg tablet,delayed 81 mg PO QAM 02/18/24 11/24/24 release calcium carbonate (Tums) 300 mg PO HS 02/18/24 11/24/24 docusate sodium 50 mg capsule 50 mg PO QAM 02/18/24 11/24/24 (Stool Softener) esomeprazole magnesium 20 mg 20 mg PO HS 02/18/24 11/24/24 capsule,delayed release (Nexium 24HR) meloxicam 7.5 mg tablet 7.5 mg PO QAM 02/18/24 11/24/24 losartan 50 mg-hydrochlorothiazide 1 tab PO QAM 06/18/24 11/24/24 12.5 mg tablet propranolol 10 mg tablet 10 - 20 mg PO Q6H PRN anxiety 11/24/24 11/24/24 Previous Rx's Medication Instructions Recorded estradiol 0.01% (0.1 mg/gram) 0.25 appful vaginal UD #42.5 grams 11/04/22 vaginal cream ondansetron HCl 4 mg tablet 4 mg PO Q8H PRN nausea and 03/01/24 vomiting #20 tabs semaglutide 2 mg/dose (8 mg/3 mL) See Rx Instructions .Route 10/03/24 subcutaneous pen injector (Ozempic) .COMPLEX #9 mL esterified 1 tab PO QAM #90 tabs 10/05/24 estrogens-methyltestosterone 1.25 mg-2.5 mg tablet estradiol 0.5 mg tablet 0.5 mg PO QAM #90 tabs 10/12/24 Results & Data (ED) Vital Signs Vital Signs - 24 hr 11/24/24 07:34 11/24/24 07:42 11/24/24 07:45 Temperature 36.8 C Temperature Source Oral Pulse Rate 192 H 187 H Pulse Rate from SpO2 Sensor Pulse Rhythm Regular Pulse Strength Normal Respiratory Rate 20 21 Respiratory Effort / Characteristics Non-Labored Non-Labored Respiratory Depth Normal Normal Respiratory Pattern Regular Regular Blood Pressure 100/72 120/94 Blood Pressure Mean 81 102 Blood Pressure Position Lying Pulse Oximetry 99 Oxygen Delivery Method Room Air Room Air Sepsis Recent Fever Within 48 Hours No Sepsis New/Unexplained Change in Mental Status N/A Sepsis Action Taken by Nursing No Action Required 11/24/24 07:45 11/24/24 07:48 11/24/24 08:06 Temperature Temperature Source Pulse Rate 186 H 186 H 138 H Pulse Rate from SpO2 Sensor 138 H Pulse Rhythm Regular Pulse Strength Respiratory Rate 20 19 Respiratory Effort / Characteristics Respiratory Depth Respiratory Pattern Blood Pressure 99/76 L Blood Pressure Mean 83 Blood Pressure Position Pulse Oximetry 99 95 Oxygen Delivery Method Room Air Sepsis Recent Fever Within 48 Hours Sepsis New/Unexplained Change in Mental Status Sepsis Action Taken by Nursing 11/24/24 08:30 11/24/24 08:30 11/24/24 09:00 Temperature Temperature Source Pulse Rate 94 H 92 H 83 Pulse Rate from SpO2 Sensor 92 H 83 Pulse Rhythm Pulse Strength Respiratory Rate 19 19 Respiratory Effort / Characteristics Respiratory Depth Respiratory Pattern Blood Pressure 123/81 123/76 Blood Pressure Mean 90 100 Blood Pressure Position Pulse Oximetry 96 97 Oxygen Delivery Method Sepsis Recent Fever Within 48 Hours Sepsis New/Unexplained Change in Mental Status Sepsis Action Taken by Nursing 11/24/24 09:32 11/24/24 10:06 11/24/24 10:32 Temperature Temperature Source Pulse Rate 75 80 77 Pulse Rate from SpO2 Sensor 75 79 78 Pulse Rhythm Pulse Strength Respiratory Rate 17 18 22 Respiratory Effort / Characteristics Respiratory Depth Respiratory Pattern Blood Pressure 121/82 124/77 123/64 Blood Pressure Mean 95 92 83 Blood Pressure Position Pulse Oximetry 97 98 98 Oxygen Delivery Method Sepsis Recent Fever Within 48 Hours Sepsis New/Unexplained Change in Mental Status Sepsis Action Taken by Nursing 11/24/24 11:00 11/24/24 12:05 11/24/24 12:30 Temperature Temperature Source Pulse Rate 79 70 Pulse Rate from SpO2 Sensor 78 70 Pulse Rhythm Pulse Strength Respiratory Rate 21 15 Respiratory Effort / Characteristics Respiratory Depth Respiratory Pattern Blood Pressure 151/87 H 145/81 H 140/93 Blood Pressure Mean 108 102 111 Blood Pressure Position Pulse Oximetry 99 99 Oxygen Delivery Method Sepsis Recent Fever Within 48 Hours Sepsis New/Unexplained Change in Mental Status Sepsis Action Taken by Nursing 11/24/24 12:35 11/24/24 13:00 11/24/24 13:11 Temperature Temperature Source Pulse Rate 75 77 Pulse Rate from SpO2 Sensor 75 Pulse Rhythm Pulse Strength Respiratory Rate 22 16 Respiratory Effort / Characteristics Respiratory Depth Respiratory Pattern Blood Pressure 135/84 Blood Pressure Mean 92 Blood Pressure Position Pulse Oximetry 99 Oxygen Delivery Method Sepsis Recent Fever Within 48 Hours Sepsis New/Unexplained Change in Mental Status Sepsis Action Taken by Nursing 11/24/24 13:30 11/24/24 13:41 11/24/24 14:02 Temperature Temperature Source Pulse Rate 77 77 Pulse Rate from SpO2 Sensor Pulse Rhythm Pulse Strength Respiratory Rate 20 18 Respiratory Effort / Characteristics Respiratory Depth Respiratory Pattern Blood Pressure 143/81 H 145/85 H Blood Pressure Mean 113 105 Blood Pressure Position Pulse Oximetry Oxygen Delivery Method Sepsis Recent Fever Within 48 Hours Sepsis New/Unexplained Change in Mental Status Sepsis Action Taken by Nursing 11/24/24 14:04 11/24/24 14:32 11/24/24 15:12 Temperature Temperature Source Pulse Rate 82 115 H 165 H Pulse Rate from SpO2 Sensor Pulse Rhythm Pulse Strength Respiratory Rate 21 Respiratory Effort / Characteristics Respiratory Depth Respiratory Pattern Blood Pressure 157/86 H 154/106 H Blood Pressure Mean 109 Blood Pressure Position Pulse Oximetry Oxygen Delivery Method Sepsis Recent Fever Within 48 Hours Sepsis New/Unexplained Change in Mental Status Sepsis Action Taken by Nursing 11/24/24 15:34 Temperature Temperature Source Pulse Rate 111 H Pulse Rate from SpO2 Sensor Pulse Rhythm Pulse Strength Respiratory Rate Respiratory Effort / Characteristics Respiratory Depth Respiratory Pattern Blood Pressure Blood Pressure Mean Blood Pressure Position Pulse Oximetry Oxygen Delivery Method Sepsis Recent Fever Within 48 Hours Sepsis New/Unexplained Change in Mental Status Sepsis Action Taken by Nursing Laboratory Data Attestation: I reviewed the patient's lab results. 11/24/24 07:50 11/24/24 07:50 Lab Results 11/24/24 11/24/24 11/24/24 Range/Units 07:50 07:54 13:07 WBC 15.26 H (4.8-10.8) K/ul RBC 5.02 (4.20-5.40) M/uL Hgb 16.1 H (12.0-16.0) g/dl POC Hgb 16.7 H (12.0-16.0) g/dl Hct 47.9 H (37.0-47.0) % POC Hct 49 H (37-47) % MCV 95.4 (80.0-100.0) fL MCH 32.1 (25.0-34.0) pg MCHC 33.6 (32.0-36.0) g/dL RDW Std Deviation 41.8 (36.4-46.3) fL RDW Coeff of Romaine 12.0 (11.5-14.5) % Plt Count 457 H (130-400) K/uL MPV 9.5 (9.4-12.4) fL Immature Gran % (Auto) 0.7 % Neut % (Auto) 68.7 % Lymph % (Auto) 24.2 % Lassen % (Auto) 5.5 % Eos % (Auto) 0.5 % Baso % (Auto) 0.4 % Neut # (Auto) 10.48 H (1.40-6.50) K/uL Lymph # (Auto) 3.70 H (1.20-3.40) K/uL Lassen # (Auto) 0.84 H (0.11-0.59) K/uL Eos # (Auto) 0.08 (0.00-0.50) K/uL Baso # (Auto) 0.06 (0.00-0.20) K/uL Immature Gran # (Auto) 0.10 (0.01-0.20) K/uL PT 10.1 (9.0-12.0) Seconds INR 0.9 (0.9-1.1) POC Sodium 140 (135-144) mmol/L Sodium 139 (136-145) mmol/L POC Potassium 4.1 (3.3-5.0) mmol/L Potassium 4.1 (3.5-5.1) mmol/L POC Chloride 103 (101-112) mmol/L Chloride 102 (98-107) mmol/L Carbon Dioxide 28 (21-32) mmol/L POC Total CO2 27 (24-31) mmol/L Anion Gap 9 (3-11) POC Anion Gap 16.0 (16-25) mmol/L POC BUN 16 (7-18) mg/dl BUN 16 (6-23) mg/dl Creatinine 1.01 (0.6-1.2) mg/dl POC Creatinine 1.1 (0.6-1.3) mg/dl Est Cr Clr Drug Dosing 53.2 ml/min eGFR 59.89 BUN/Creatinine Ratio 15.8 (10-20) Glucose 206 H (70-99(Fasting)) mg/dl POC Glucose (other) 206 H (70-99) mg/dl Calcium 10.3 (8.6-10.3) mg/dl POC Ioniz Calcium Kevyn 1.28 (1.12-1.32) mmol/l Phosphorus 3.7 (2.5-4.9) mg/dl Magnesium 2.2 (1.7-2.4) mg/dl Total Bilirubin 0.6 (0.2-1.0) mg/dl AST 18 (13-39) U/L ALT 12 (7-52) U/L Alkaline Phosphatase 63 (34-104) U/L Troponin I High Sens 7.3 94.2 H* D (0-14) pg/ml Total Protein 7.5 (6.0-8.3) gm/dl Albumin 4.7 (3.4-5.0) gm/dl Globulin 2.8 (2.5-4.0) gm/dl Albumin/Globulin Ratio 1.7 (0.9-2) Lipase 38 (11-82) U/L Administered Medications Discontinued Medications Sodium Chloride (Nss) 1,000 mls @ 999 mls/hr IV .Q1H1M ONE Stop: 11/24/24 09:00 Last Infusion: 11/24/24 09:21 Dose: Infused Documented By: Admin: 11/24/24 08:04 Dose: 999 mls/hr Documented By: RD Sodium Chloride (Nss) 1,000 mls @ 999 mls/hr IV .Q1H1M ONE Stop: 11/24/24 11:41 Last Infusion: 11/24/24 12:18 Dose: Infused Documented By: Admin: 11/24/24 10:59 Dose: 999 mls/hr Documented By: RD Ioversol (Optiray 320 125ml) 115 ml IV ONCE ONE Stop: 11/24/24 15:48 Last Admin: 11/24/24 15:47 Dose: 115 ml Documented By: JOANIE Metoprolol Tartrate (Metoprolol Tartrate 1 Mg/Ml Vial) 5 mg IV NOW STA Stop: 11/24/24 15:06 Last Admin: 11/24/24 15:12 Dose: 5 mg Documented By: RD Imaging Data Radiologist's Impression: Chest X-Ray 11/24/24 07:58 XR chest 1V portable HISTORY: 69 years-old Female Chest pain, nonspecific COMPARISON: 06/18/2024 TECHNIQUE: AP view of the chest FINDINGS: Cardiac silhouette is mildly enlarged. No pneumothorax, pleural effusion or airspace consolidation. Bones appear grossly intact. IMPRESSION: No acute process. ACT 112: Negative or not required by law. The above report was generated using voice recognition software. It may contain grammatical, syntax or spelling errors. Electronically signed by: Lance Smith M.D. 11/24/2024 8:14 AM Chest CTA 11/24/24 15:05 CT angio chest PE protocol CT DOSE: 756.77 mGy.cm HISTORY: tachycardia, cp, elevated trop, r/o PE. TECHNIQUE: Multiple CTA images of the chest were obtained after the intravenous administration of 115 ml Optiray. Coronal and sagittal MIPS were obtained from the axial data set and were submitted for review. All measurements were obtained according to NASCET criteria. A dose lowering technique was utilized adhering to the principles of ALARA. COMPARISON STUDY: 07/05/2022 FINDINGS: There is a stable small hiatal hernia. There is no pulmonary consolidation, pleural effusion, or pneumothorax. No enlarged adenopathy. No pericardial effusion. No thoracic aortic dissection or aneurysm. No pulmonary embolism. There are mild diffuse thoracic spine degenerative changes. IMPRESSION: No pulmonary embolism or pneumonia. ACT 112: Negative or not required by law. The above report was generated using voice recognition software. It may contain grammatical, syntax or spelling errors. Electronically signed by: Henrik Franklin M.D. 11/24/2024 4:03 PM Discharge Plan Visit Data Chief Complaint: Tachycardia Stated Complaint: RAPID HEART RATE ED Provider: Davide De Dios Discharge Problem: SVT (supraventricular tachycardia), Chest pain, Elevated troponin, Elevated hemoglobin, Elevated hematocrit Forms Stand Alone Forms: [employer] Prescriptions Prescriptions: No Action estradiol 0.01 % (0.1 mg/gram) cream 0.25 appful vaginal UD Qty: 42.5 3RF Rx Instructions: use 1/ applicator in vagina twice weekly on Tuesdays and Fridays. ondansetron HCl 4 mg tablet 4 mg PO Q8H PRN (Reason: nausea and vomiting) Qty: 20 0RF Ozempic 2 mg/dose (8 mg/3 mL) pen injector See Rx Instructions .ROUTE .COMPLEX Qty: 9 3RF Dose Instruction: INJECT 2MG SUBCUTANEOUSLY ONCE WEEKLY (EVERY 7 DAYS) Rx Instructions: INJECT 2MG SUBCUTANEOUSLY ONCE WEEKLY (EVERY 7 DAYS). Thu estrogens-methyltestosterone 1.25-2.5 mg tablet 1 tab PO QAM Qty: 90 3RF estradiol 0.5 mg tablet 0.5 mg PO QAM Qty: 90 3RF epinephrine 0.3 mg/0.3 mL auto-injector 0.3 mg subcut UD PRN (Reason: anaphylaxis) Rx Instructions: Pt states this is , need new script. losartan-hydrochlorothiazide 50-12.5 mg tablet 1 tab PO QAM Stool Softener 50 mg Capsule 50 mg PO QAM Tums 300 mg (750 mg) Tablet,Chewable 300 mg PO HS esomeprazole magnesium [Nexium 24HR] 20 mg Capsule,Delayed Release(Dr/Ec) 20 mg PO HS meloxicam 7.5 mg tablet 7.5 mg PO QAM aspirin 81 mg Tablet,Delayed Release (Dr/Ec) 81 mg PO QAM Rx Instructions: On hold due to procedurre propranolol 10 mg tablet 10 - 20 mg PO Q6H PRN (Reason: anxiety ) Rx Instructions: 1-2 tabs orally every 6 hours PRN; Referrals Referrals: Aida Sumner MD [Primary Care Provider] - Discharge Problem: Chest pain Qualifiers: Chest pain type: unspecified Qualified Code(s): R07.9 - Chest pain, unspecified
[2024-11-24 08:15] LABS: Basophils # (auto) 0.06 K/uL (0.00-0.20); Basophils % (auto) 0.4 %; Eosinophils # (auto) 0.08 K/uL (0.00-0.50); Eosinophils % (auto) 0.5 %; Hematocrit (blood only) 47.9 % (37.0-47.0); Hemoglobin 16.1 g/dl (12.0-16.0); Immature Granulocytes % (auto) 0.7 %; Lymphocytes % (auto) 24.2 %; Mean Corpuscular Hemoglobin 32.1 pg (25.0-34.0); Mean Corpuscular Hgb Conc 33.6 g/dL (32.0-36.0); Mean Corpuscular Volume 95.4 fL (80.0-100.0); Mean Platelet Volume 9.5 fL (9.4-12.4); Monocytes # (auto) 0.84 K/uL (0.11-0.59); Monocytes % (auto) 5.5 %; Neutrophils # (auto) 10.48 K/uL (1.40-6.50); Neutrophils % (auto) 68.7 %; Platelet Count 457 K/uL (130-400); RDW Standard Deviation 41.8 fL (36.4-46.3); Red Blood Count 5.02 M/uL (4.20-5.40); White Blood Count 15.26 K/ul (4.8-10.8)
--- NOTE | 2024-11-24 08:15 | XRay Report ---
XR chest 1V portable HISTORY: 69 years-old Female Chest pain, nonspecific COMPARISON: 06/18/2024 TECHNIQUE: AP view of the chest FINDINGS: Cardiac silhouette is mildly enlarged. No pneumothorax, pleural effusion or airspace consolidation. B ones appear grossly intact. IMPRESSION: No acute process. ACT 112: Negative or not required by law. The above report was generated using voice recognition software. It may contain grammatical, syntax o r spelling errors. Electronically signed by: Lance Smith M.D. 11/24/2024 8:14 AM
[2024-11-24 08:40] LABS: INR 0.9 (0.9-1.1); Prothrombin Time 10.1 Seconds (9.0-12.0)
[2024-11-24 08:43] LABS: Albumin Globulin Ratio 1.7 (0.9-2); Albumin Level 4.7 gm/dl (3.4-5.0); BUN Creatinine Ratio 15.8 (10-20); Bilirubin,Total 0.6 mg/dl (0.2-1.0); Calcium 10.3 mg/dl (8.6-10.3); Creatinine Clr Calc Pharmacy 53.2 ml/min; Globulin 2.8 gm/dl (2.5-4.0); Magnesium 2.2 mg/dl (1.7-2.4); Phosphorus 3.7 mg/dl (2.5-4.9); Potassium 4.1 mmol/L (3.5-5.1); Total Protein 7.5 gm/dl (6.0-8.3)
[2024-11-24 08:47] LABS: Troponin I High Sensitivity 7.3 pg/ml (0-14)
--- NOTE | 2024-11-24 13:46 | Electrocardiogram Report ---
Test Reason : Blood Pressure : */* mmHG Vent. Rate : 185 BPM Atrial Rate : * BPM P-R Int : * ms QRS Dur : 70 ms QT Int : 248 ms P-R-T Axes : * 47 11 degrees QTcB Int : 435 ms Supraventricular tachycardia Nonspecific ST abnormality Abnormal ECG When compared with ECG of 18-Jun-2024 19:58, Vent. rate has increased by 101 bpm Confirmed by Bulmaro Polo ([id number]) on 11/24/2024 1:45:48 PM Referred By: Confirmed By: Bulmaro Polo
--- NOTE | 2024-11-24 13:47 | Electrocardiogram Report ---
Test Reason : Blood Pressure : */* mmHG Vent. Rate : 93 BPM Atrial Rate : 93 BPM P-R Int : 178 ms QRS Dur : 76 ms QT Int : 352 ms P-R-T Axes : 43 21 36 degrees QTcB Int : 437 ms Normal sinus rhythm When compared with ECG of 24-Nov-2024 07:41, (unconfirmed) Vent. rate has decreased by 92 bpm Confirmed by Bulmaro Polo ([id number]) on 11/24/2024 1:47:32 PM Referred By: Confirmed By: Bulmaro Polo
[2024-11-24] MEDS: METOPROLOL TARTRATE 1 MG/ML VIAL IV STA (15:12)
[2024-11-24] MEDS: OPTIRAY 320 125ml IV ONE (15:47)
--- NOTE | 2024-11-24 16:04 | CT Scan Report ---
CT angio chest PE protocol CT DOSE: 756.77 mGy.cm HISTORY: tachycardia, cp, elevated trop, r/o PE. TECHNIQUE: Multiple CTA images of the chest were obtained after the intravenous administration of 115 ml Optiray. Coronal and sagittal MIPS were obtained from the axial data set and were submitted for review. All measurements were obtained according to NASCET criteria. A dose lowering technique was u tilized adhering to the principles of ALARA. COMPARISON STUDY: 07/05/2022 FINDINGS: There is a stable small hiatal hernia. There is no pulmonary consolidation, pleural effusio n, or pneumothorax. No enlarged adenopathy. No pericardial effusion. No thoracic aortic dissection or aneurysm. No pulmonary embolism. There are mild diffuse thoracic spine degenerative changes. IMPRESSION: No pulmonary embolism or pneumonia. ACT 112: Negative or not required by law. The above report was generated using voice recognition software. It may contain grammatical, syntax o r spelling errors. Electronically signed by: Henrik Franklin M.D. 11/24/2024 4:03 PM
--- NOTE | 2024-11-24 16:19 | History & Physical Report ---
Date of Service November 24, 2024 Assessment & Plan (1) SVT (supraventricular tachycardia): (2) Elevated troponin: (3) Leukocytosis: (4) Type 2 diabetes mellitus: (5) Hypertension: Plan Patient is a 69-year-old female with past medical history of hypertension, GERD, diabetes mellitus. She presented today to the ER due to heart palpitations and was found to be in SVT with rates up to 190. She converted into NSR with vagal maneuvers, but then converted back into SVT later in the afternoon. Prior to admission she was given 5mg IV Lopressor and converted back into NSR, rates 70s. She is being admitted for SVT, cardiology to evaluate patient in morning. Discussed with on-call gas cutter Dr. Polo - He will evaluate patient in a.m.; can use vagal maneuvers, adenosine, metoprolol as needed overnight. Discussed starting p.o. metoprolol 25mg BID scheduled, will defer at this time until he evaluates patient in a.m. #SVT/elevated troponin/chest pain patient with palpitations, intermittent chest pain, associated dyspnea, nausea, lightheadedness hx of palpations requiring admission in June 2024 - was dc with Holter monitor - 2 episodes of SVT currently in NSR on admission with rates 70-80 CXR and chest CTA negative troponin up trended from 9.3 to 94.2; trend trops overnight consult cardiology hold losartan HCTZ to avoid hypotension with possible need of metoprolol or adenosine overnight continue daily ASA monitor on tele will need to set up care with out pt cardiology prior to dc #leukocytosis WBC 15.26 on admission with neutrophil predominance, no left shift Did receive steroid for injection approximately 2 weeks ago CXR negative, UA ordered #T2DM on Ozempic at home due for injection 11/25, hold recent A1c 7.0 Loose SSI #HTN- holding losartan HCTZ as above to allow for prn SVT agents #GERD - continue PPI and tums prn #HRT - continue hormone replacement therapy VTE ppx: SCDs Diet: T2DM, heart healthy Dispo: PCU Anticipate discharge home 11/25 after cardiology eval. Admission and Anticipated Discharge Date Admission Date: 11/24/24 History of Present Illness Chief Complaint: tachycardia Primary Care Provider: Aida Sumner MD Patient is a 69-year-old female with past medical history of hypertension, GERD, diabetes mellitus. She presented today to the ER due to heart palpitations and was found to be in SVT with rates up to 190. She converted into NSR with vagal maneuvers, but then converted back into SVT later in the afternoon. Prior to admission she was given 5mg IV Lopressor and converted back into NSR, rates 70s. She is being admitted for SVT, cardiology to evaluate patient in morning. Patient was seen at bedside. She stated when she woke up at 6 AM she had heart palpitations that felt like butterflies and her heart was racing. She had a similar episode when she required admission in June, however this morning her palpitations were worse. She took her blood pressure and heart rate at home; BP trending between 104/82-205/198, HR trending between 164-190. She did not take any of her home medications this morning. She also endorses dyspnea, nausea, and lightheadedness during the episode that have all now improved. She also had a mild headache in the ED that is resolved. She endorses intermittent chest pain and back pain that is 6/10 at its worst and decreases to 0/10. Patient denies abdominal pain, vomiting, diarrhea, dysuria, numbness, tingling. When she was hospitalized June due to palpitations, she was discharged with a Holter monitor which did show 2 episodes of SVT. She previously followed with [facility] cardiology but recently switched care to [facility] and has not arranged cardiology care. She would like to arrange care with [facility] cardiology. She does not use nicotine products or drink alcohol. She denies past history of cancer or previous VTE. She does not use oxygen at baseline. She did not take her home medications this morning. She had a hysterectomy when she was 24 years old and is on daily, replacement therapy. She wishes to be full code at this time. She is due for her Ozempic tomorrow, discussed that we will hold this during hospitalization. Regarding her leukocytosis 15.26. Denies URI symptoms, denies dysuria or difficulty urinating. She did have a steroid injection in her foot approximately 2 weeks ago. Allergies Allergy/AdvReac Type Severity Reaction Status Date / Time codeine Allergy Severe SHORTNESS Verified 11/24/24 10:28 OF BREATH kiwi Allergy Severe ITCHING, Verified 11/24/24 10:28 TONGUE AND LIPS SWELL latex Allergy Severe SHORTNESS Verified 11/24/24 10:28 OF BREATH,MOUTH GOT RED WITH DENTAL WORK/GLOVES Influenza Virus Vaccines Allergy Intermediate Swelling Verified 11/24/24 10:28 of the Eye,rash tetanus toxoid, adsorbed Allergy Intermediate LUMP ON Verified 11/24/24 10:28 ARM AFTER INJECTION Sulfa (Sulfonamide Allergy Mild RASH Verified 11/24/24 10:28 Antibiotics) cefuroxime Allergy Unknown PT DOESN'T Verified 11/24/24 10:28 REMEMBER metoclopramide AdvReac Intermediate SEVERE Verified 11/24/24 10:28 MUSCLE SORENESS morphine AdvReac Intermediate severe n/v Verified 11/24/24 10:28 pravastatin AdvReac Intermediate muscle pain Verified 11/24/24 10:28 yellow jacket Allergy Severe Anaphylaxis Uncoded 11/24/24 10:28 Home Medications Medication Instructions Recorded Confirmed Type epinephrine 0.3 mg/0.3 mL 0.3 mg subcut UD PRN anaphylaxis 10/22/19 11/24/24 History injection, auto-injector estradiol 0.01% (0.1 mg/gram) 0.25 appful vaginal UD #42.5 grams 11/04/22 11/24/24 Rx vaginal cream aspirin 81 mg tablet,delayed 81 mg PO QAM 02/18/24 11/24/24 History release calcium carbonate (Tums) 300 mg PO HS 02/18/24 11/24/24 History docusate sodium 50 mg capsule 50 mg PO QAM 02/18/24 11/24/24 History (Stool Softener) esomeprazole magnesium 20 mg 20 mg PO HS 02/18/24 11/24/24 History capsule,delayed release (Nexium 24HR) meloxicam 7.5 mg tablet 7.5 mg PO QAM 02/18/24 11/24/24 History ondansetron HCl 4 mg tablet 4 mg PO Q8H PRN nausea and 03/01/24 11/24/24 Rx vomiting #20 tabs losartan 50 mg-hydrochlorothiazide 1 tab PO QAM 06/18/24 11/24/24 History 12.5 mg tablet semaglutide 2 mg/dose (8 mg/3 mL) See Rx Instructions .Route 10/03/24 11/24/24 Rx subcutaneous pen injector (NanoGram) .COMPLEX #9 mL esterified 1 tab PO QAM #90 tabs 10/05/24 11/24/24 Rx estrogens-methyltestosterone 1.25 mg-2.5 mg tablet estradiol 0.5 mg tablet 0.5 mg PO QAM #90 tabs 10/12/24 11/24/24 Rx propranolol 10 mg tablet 10 - 20 mg PO Q6H PRN anxiety 11/24/24 11/24/24 History Past Med/Surg History Problem List (Updated 11/24/24 @ 17:04 by Monserrat Gomez PA-C) Leukocytosis Elevated hematocrit (Acute) Elevated hemoglobin (Acute) Elevated troponin (Acute) Chest pain (Acute) SVT (supraventricular tachycardia) (Acute) Nephrolithiasis (Chronic) Osteoarthritis of left knee (Chronic) Venous reflux (Chronic) Statin myopathy (Chronic) Irritable bowel syndrome with diarrhea (Chronic) Hyperlipidemia (Chronic) statin intolerance Stenosis of lumbosacral spine (Chronic) Rosacea (Chronic) Gastroparesis (Chronic) Type 2 diabetes mellitus (Chronic) Hypertension (Chronic) Hormone replacement therapy (Chronic) GERD (gastroesophageal reflux disease) (Chronic) Surgical History Hx of esophagogastroduodenoscopy EGD with dilation, multiple History of surgery on lower extremity IT band, left leg Hx of bilateral cataract extraction History of Dewayne fundoplication Family history of reaction to anesthesia per pt, brother 'had a mild stroke during heart cath' H/O left knee surgery Hx of inguinal hernia surgery (11/22/19) Right Open Direct Inguinal Hernia Repair, Bassini Repair, Lipoma of round ligament Dr. Mcgraw: GA: LMA #4, attempt x 1 atraumatic History of laparotomy FOR RUPTURED ECTOPIC -REMOVAL TUBE AND OVARY History of colonoscopy Difficult airway for intubation H/o awake fiberoptic intubation with L5-S1 laminectomy 01/31/14. Had successful intubation 11/22/19: LMA #4, attempt x 1 atraumatic History of cholecystectomy History of repair of rotator cuff RX1, LX1 History of surgery left bicep repair History of eye surgery BLOW OUT FRACTURE RIGHT EYE History of sinus surgery History of ankle surgery rt X3 History of back surgery L5-S1 laminectomy 01/31/14: awake fiberoptic intubation History of tonsillectomy History of total abdominal hysterectomy and bilateral salpingo-oophorectomy Family History Brother Family history of reaction to anesthesia pt reports brother had allergic reaction to anesthesia and suffered from stroke after anesthesia Hypertension Stroke Cancer Brother Family history of diabetes mellitus Sister Family history of diabetes mellitus Hypertension Cerebral aneurysm Father Myocardial infarction Aunt Breast cancer Grandfather Asthma Mother Cardiac disorder Hypertension Stroke Hearing loss Cerebral aneurysm Other Osteoporosis Denies family history of Ovarian cancer Colorectal cancer Social History Smoking Status: Never smoker Second Hand Exposure: No; Do You Dip or Chew Tobacco: No; Hx Alcohol Use: Yes Alcohol type: wine Hx Substance Use: No Preferred Language: Belarusian Communication Ability: Effective Visual Impairment: No Limitations Golf Teacher Required: No Beliefs That Will Affect Care: None marital status: Current Living Situation: Spouse current occupational status: retired Other Information That Helps Us Care for You: No Feels Safe at Home: Yes and No Is there a partner from a previous relationship who is making you feel unsafe now?: No Any Concerns about Your Family Situation: No Would You Like to Speak to Someone About Your Situation: No Safety Concerns: Feels Safe At This Time Childhood Exposure to Second-Hand Smoke: No Diet: regular caffeine: Yes Dental Care, Regularly: Yes Physical Activity Frequency: 3-4 Times per Week Seatbelt Use: always Sunscreen Use: Yes Assistive Devices: Glasses Review of Systems Review of Systems: see HPI Physical Exam Physical Exam: The patient is awake, alert and oriented 3, well developed and well nourished, normocephalic and atraumatic, in no acute distress. Non-toxic appearing. HEENT- EOMI, mucous membranes moist. Hearing grossly intact. Heart-normal S1 and S2. No murmurs, rubs or gallops. Lungs-clear bilaterally, no respiratory distress, no accessory muscle use. Abdomen-normal bowel sounds and soft. No ascites noted. Non-tender. Extremities- no clubbing, cyanosis, or edema. Rheumatologic-normal range of motion. Psychiatric-normal affect. Results & Data Results & Data Vital Signs (Past 12 Hours) Vital Signs Temp Pulse Resp BP Pulse Ox O2 Del Method 11/24/24 15:34 111 H 11/24/24 15:12 165 H 154/106 H 11/24/24 14:32 115 H 21 157/86 H 11/24/24 14:04 82 11/24/24 14:02 77 18 145/85 H 11/24/24 13:41 77 20 11/24/24 13:30 143/81 H 11/24/24 13:11 77 16 11/24/24 13:00 135/84 11/24/24 12:35 75 22 99 11/24/24 12:30 140/93 11/24/24 12:05 70 15 145/81 H 99 11/24/24 11:00 79 21 151/87 H 99 11/24/24 10:32 77 22 123/64 98 11/24/24 10:06 80 18 124/77 98 11/24/24 09:32 75 17 121/82 97 11/24/24 09:00 83 19 123/76 97 11/24/24 08:30 92 H 19 123/81 96 11/24/24 08:30 94 H 11/24/24 08:06 138 H 19 99/76 L 95 11/24/24 07:48 186 H 11/24/24 07:45 186 H 20 99 Room Air 11/24/24 07:45 Room Air 11/24/24 07:42 187 H 21 120/94 11/24/24 07:34 36.8 C 192 H 20 100/72 99 Room Air Laboratory Results Reviewed CBC, CMP, troponin Diagnostic Findings reviewed CXR and CTA chest Medications Administered ED: 2L NSS, 5mg IV Lopressor ECG Additional Comments: 0741 - SVT, rate 185 0820 - NSR, rate 93 Code Status & VTE Plan Code Status full VTE Prophylaxis Plan VTE Prophylaxis will be ordered: Yes Supervising Physician Co-Signing Physician Notes I personally saw and examined the patient. I independently reviewed the labs, EKG, imaging, problem list, medication list, past medical history and family history. I verified all no points and agree with Monserrat Gomez PA-C with the following exceptions and/or additions: 69 year old female presents to the ER with chest pain an palpitation. Noted to be in SVT in the ER, converted back to NSR and then went back to SVT. Currently back to baseline now in NSR and asymptomatic. O/E HS RRR, no murmurs, Chest CTAB. Abdo SNT A/P SVT - consult cardiology to consider metoprolol, if goes back into SVT overnight trial vagal manoeuvres +/- metoprolol IV PG Care Time/CCT Total # of Minutes Spent Total Time Spent with Patient: Total time spent is greater than 50% in coordination of care (as documented) at patient's floor/unit and/or counseling patient: Coding Level of Care Code 43434 INT INP/OBS CARE 3/75MIN Diagnoses SVT (supraventricular tachycardia) I47.10 Elevated troponin R79.89 Leukocytosis D72.829 Type 2 diabetes mellitus E11.9 Hypertension I10
[2024-11-24] MEDS ORDERED: CARBOHYDRATES FOR HYPOGLYCEMIA PO PRN (17:18)
[2024-11-24] MEDS ORDERED: GLUCAGON FOR INJ 1 MG VIAL SQ PRN (17:18)
[2024-11-24] MEDS ORDERED: DEXTROSE 50% 50 ML SYRINGE IV PRN (17:18)
[2024-11-24] MEDS ORDERED: ACETAMINOPHEN 325 MG TAB PO PRN (17:18)
[2024-11-24] MEDS ORDERED: GLUCOSE 40% GEL 15 GM TUBE PO PRN (17:18)
[2024-11-24] MEDS ORDERED: ONDANSETRON INJ 2 MG/ML 2 ML VIAL IV PRN (17:18)
[2024-11-24] MEDS ORDERED: DOCUSATE SODIUM 100 MG CAP PO PRN (17:18)
[2024-11-24] MEDS ORDERED: GLUCOSE 10 TAB/TUBE PO PRN (17:18)
[2024-11-24] MEDS ORDERED: CALCIUM CARBONATE 500 MG CHEWABLE TAB PO PRN (17:28)
[2024-11-24 17:54] LABS: Appearance Urine Cloudy (Clear); Bacteria Urine Automated 2+ (None Seen); Bilirubin Urine Negative (Negative); Blood Urine Negative (Negative); Color Urine Yellow; Glucose Urine UA Negative (Negative); Ketones Urine 1+ (Negative); Leukocyte Esterase Urine Trace (Negative); Nitrite Urine Negative (Negative); Protein Urine Negative (Negative); RBC Urine Automated 0-2 /hpf (0-2); Specific Gravity Urine 1.015 (1.000-1.030); Urobilinogen Urine Negative (Negative)
[2024-11-24] MEDS: INSULIN ASPART PER UNIT CHARGE SC SCH (19:57)
[2024-11-25 06:48] LABS: Basophils # (auto) 0.04 K/uL (0.00-0.20); Basophils % (auto) 0.4 %; Eosinophils # (auto) 0.08 K/uL (0.00-0.50); Eosinophils % (auto) 0.7 %; Hemoglobin 12.9 g/dl (12.0-16.0); Immature Granulocytes # (auto) 0.06 K/uL (0.01-0.20); Immature Granulocytes % (auto) 0.5 %; Lymphocytes # (auto) 2.34 K/uL (1.20-3.40); Lymphocytes % (auto) 20.7 %; Mean Corpuscular Hemoglobin 32.4 pg (25.0-34.0); Mean Corpuscular Hgb Conc 33.9 g/dL (32.0-36.0); Mean Corpuscular Volume 95.5 fL (80.0-100.0); Mean Platelet Volume 9.7 fL (9.4-12.4); Monocytes # (auto) 0.67 K/uL (0.11-0.59); Monocytes % (auto) 5.9 %; Neutrophils # (auto) 8.13 K/uL (1.40-6.50); Neutrophils % (auto) 71.8 %; Platelet Count 290 K/uL (130-400); RDW Coefficient of Variation 11.9 % (11.5-14.5); RDW Standard Deviation 41.4 fL (36.4-46.3); Red Blood Count 3.98 M/uL (4.20-5.40); White Blood Count 11.32 K/ul (4.8-10.8)
[2024-11-25 07:11] LABS: BUN Creatinine Ratio 20.9 (10-20); Calcium 8.8 mg/dl (8.6-10.3); Creatinine Clr Calc Pharmacy 81.5 ml/min; Potassium 3.8 mmol/L (3.5-5.1); Troponin I High Sensitivity 53.5 pg/ml (0-14)
--- NOTE | 2024-11-25 07:19 | Hospitalist Progress Note ---
Date of Service November 25, 2024 Assessment & Plan (1) SVT (supraventricular tachycardia): (2) Elevated troponin: (3) Leukocytosis: (4) Type 2 diabetes mellitus: (5) Hypertension: Plan Kelley Witt is a 69-year-old female with past medical history of hypertension, GERD, diabetes mellitus, and a history of palpitations (s/p Holter showing SVT episodes) who presented to the ED with prolonged palpitations found to have persistent SVT who was admitted for further SVT workup and management. #SVT/Elevated Troponin - Troponin: Downtrending (max 94.2) Converted to NSR in the ED with vagal maneuvers; returned to SVT; given IV metoprolol once; remains in NSR Cardiology onboard; consider outpatient cardiology; consider scheduled metoprolol Chest X-ray and CTA: Negative Aspirin #Leukocytosis - Urine Culture: Pending Leukocytosis downtrending CXR negative #T2DM Holding home semaglutide; Sliding scale onbaord #Chronic Stable Conditions Hypertension - hold losartan HCTZ; PRN SVT agents GERD - PPI PO QD + calcium carbonate PRN HRT - continue hormone replacement therapy VTE ppx: SCDs Diet: T2DM, heart healthy Dispo: Med/Tele Admission and Anticipated Discharge Date Admission Date: November 24, 2024 Stefan Benson was met at bedside this morning. She indicated that she has not felt palpitations, fluttering, or skipping beats since being given IV metoprolol. She mentioned that she has intermittent, short-lived chest tightness that is not associated with any specific trigger and is not associated with chest pain, shortness of breath, light headedness, or radiates to other locations. Kelley said that she previously had discussions with her PCP regarding being on metoprolol continuously vs. [id number]-pocket of propranolol. She has been using her propranolol when needed is is almost out. We discussed her SVT (now NSR), metoprolol/propranolol, and our cardiology colleagues who will be taking care of her. Otherwise, she had no further questions, concerns, or updates. Review of Systems Review of Systems: Per HPI Physical Exam Physical Exam: Constitutional: Sitting comfortably in bed. In no apparent distess Cardiovascular: Regular rate and rhythm. S1 and S2 noted. No rubs, murmurs, or gallops appreciated Pulmonary: Lungs are clear to auscultation in the upper anterior, upper posterior, and lower posterior lung rowley. No crackles, rhonchi, or wheeze. Conversational without shortness of breath. No accessory respiratory muscle usage. Results & Data Results & Data Vital Signs (Past 12 Hours) Vital Signs Temp Pulse Pulse Resp BP Pulse Ox O2 Del Method 11/25/24 02:59 36.4 C L 89 19 133/79 95 Room Air 11/24/24 23:16 36.6 C 69 16 122/71 95 Room Air 11/24/24 21:50 81 11/24/24 20:04 36.5 C 77 18 152/84 H 96 Room Air
[2024-11-25 07:49] VITALS: RESP 18
[2024-11-25] MEDS: PANTOprazole 40 MG TAB PO SCH (08:09)
[2024-11-25] MEDS: ASPIRIN 81 MG ECTAB PO SCH (08:10)
--- NOTE | 2024-11-25 10:39 | Cardiology Consultation ---
Date of Consultation November 25, 2024 Assessment & Plan (1) SVT (supraventricular tachycardia): Plan 1. SVT: She has a well-documented SVT. 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 This would be more common in her demographic as well. She was noted to have symptomatic PACs on recent outpatient monitoring. PACs would be the likely precipitant for episodes of SVT. We did discuss vagal maneuvers. We also discussed other options for treatment to include medical therapy or catheter- based therapy. At this point she would simply like to try some medical therapy. Will reserve an ablation for more frequent and symptomatic episodes. I think trying metoprolol succinate 25 mg daily would be reasonable. I will make arrangements for follow-up in our clinic in a few months to take an inventory of her symptoms or desire to change treatment. History of Present Illness Reason for Consultation: SVT Requesting Physician: Patricia Attending Physician: Mesha Ochoa MD History of Present Illness The patient is a 69-year-old woman without a known history of cardiac disease who awoke yesterday morning with symptoms of dizziness and a rapid heartbeat. Patient states that over the years she has felt some brief sensations of palpitation and rapid heartbeat. She actually wore an outpatient monitor in July of this year in an attempt to capture any arrhythmia. No significant arrhythmias were documented despite multiple symptom episodes. However, yesterday morning upon awakening she sought medical attention due to the symptoms and extended nature of the episode. In emergency room she was noted to be in SVT. Vagal maneuvers were attempted but unsuccessful. She was subsequent [employer] metoprolol with resolution. She was admitted to the hospital due to concerns over recurrence and mildly elevated cardiac biomarkers. She did have a nother episode of SVT after admission. Again responded to metoprolol. In general she is an active individual. She does walking for exercise. She walks less in the winter. She did not report any symptoms associated with activity. She does not have limiting dyspnea or shortness of breath. No exertional chest pain. Generally no dizziness or lightheadedness. She can ever recall an actual syncopal episode. She does have difficulty sleeping due to stress. No orthopnea or paroxysmal nocturnal dyspnea. Allergies Allergy/AdvReac Type Severity Reaction Status Date / Time codeine Allergy Severe SHORTNESS Verified 11/24/24 10:28 OF BREATH kiwi Allergy Severe ITCHING, Verified 11/24/24 10:28 TONGUE AND LIPS SWELL latex Allergy Severe SHORTNESS Verified 11/24/24 10:28 OF BREATH,MOUTH GOT RED WITH DENTAL WORK/GLOVES Influenza Virus Vaccines Allergy Intermediate Swelling Verified 11/24/24 10:28 of the Eye,rash tetanus toxoid, adsorbed Allergy Intermediate LUMP ON Verified 11/24/24 10:28 ARM AFTER INJECTION Sulfa (Sulfonamide Allergy Mild RASH Verified 11/24/24 10:28 Antibiotics) cefuroxime Allergy Unknown PT DOESN'T Verified 11/24/24 10:28 REMEMBER metoclopramide AdvReac Intermediate SEVERE Verified 11/24/24 10:28 MUSCLE SORENESS morphine AdvReac Intermediate severe n/v Verified 11/24/24 10:28 pravastatin AdvReac Intermediate muscle pain Verified 11/24/24 10:28 yellow jacket Allergy Severe Anaphylaxis Uncoded 11/24/24 10:28 Home Medications Medication Instructions Recorded Confirmed Type epinephrine 0.3 mg/0.3 mL 0.3 mg subcut UD PRN anaphylaxis 10/22/19 11/24/24 History injection, auto-injector estradiol 0.01% (0.1 mg/gram) 0.25 appful vaginal UD #42.5 grams 11/04/22 11/24/24 Rx vaginal cream aspirin 81 mg tablet,delayed 81 mg PO QAM 02/18/24 11/24/24 History release calcium carbonate (Tums) 300 mg PO HS 02/18/24 11/24/24 History docusate sodium 50 mg capsule 50 mg PO QAM 02/18/24 11/24/24 History (Stool Softener) esomeprazole magnesium 20 mg 20 mg PO HS 02/18/24 11/24/24 History capsule,delayed release (Nexium 24HR) meloxicam 7.5 mg tablet 7.5 mg PO QAM 02/18/24 11/24/24 History ondansetron HCl 4 mg tablet 4 mg PO Q8H PRN nausea and 03/01/24 11/24/24 Rx vomiting #20 tabs losartan 50 mg-hydrochlorothiazide 1 tab PO QAM 06/18/24 11/24/24 History 12.5 mg tablet semaglutide 2 mg/dose (8 mg/3 mL) See Rx Instructions .Route 10/03/24 11/24/24 Rx subcutaneous pen injector (Ozempic) .COMPLEX #9 mL esterified 1 tab PO QAM #90 tabs 10/05/24 11/24/24 Rx estrogens-methyltestosterone 1.25 mg-2.5 mg tablet estradiol 0.5 mg tablet 0.5 mg PO QAM #90 tabs 10/12/24 11/24/24 Rx propranolol 10 mg tablet 10 - 20 mg PO Q6H PRN anxiety 11/24/24 11/24/24 History Patient History Surgical History Hx of esophagogastroduodenoscopy EGD with dilation, multiple History of surgery on lower extremity IT band, left leg Hx of bilateral cataract extraction History of Dewayne fundoplication Family history of reaction to anesthesia per pt, brother 'had a mild stroke during heart cath' H/O left knee surgery Hx of inguinal hernia surgery (11/22/19) Right Open Direct Inguinal Hernia Repair, Bassini Repair, Lipoma of round ligament Dr. Mcgraw: GA: LMA #4, attempt x 1 atraumatic History of laparotomy FOR RUPTURED ECTOPIC -REMOVAL TUBE AND OVARY History of colonoscopy Difficult airway for intubation H/o awake fiberoptic intubation with L5-S1 laminectomy 01/31/14. Had successful intubation 11/22/19: LMA #4, attempt x 1 atraumatic History of cholecystectomy History of repair of rotator cuff RX1, LX1 History of surgery left bicep repair History of eye surgery BLOW OUT FRACTURE RIGHT EYE History of sinus surgery History of ankle surgery rt X3 History of back surgery L5-S1 laminectomy 01/31/14: awake fiberoptic intubation History of tonsillectomy History of total abdominal hysterectomy and bilateral salpingo-oophorectomy Family History Brother Family history of reaction to anesthesia pt reports brother had allergic reaction to anesthesia and suffered from stroke after anesthesia Hypertension Stroke Cancer Brother Family history of diabetes mellitus Sister Family history of diabetes mellitus Hypertension Cerebral aneurysm Father Myocardial infarction Aunt Breast cancer Grandfather Asthma Mother Cardiac disorder Hypertension Stroke Hearing loss Cerebral aneurysm Other Osteoporosis Denies family history of Ovarian cancer Colorectal cancer Social History Smoking Status: Never smoker Second Hand Exposure: No; Do You Dip or Chew Tobacco: No; Hx Alcohol Use: Yes Alcohol type: wine Hx Substance Use: No Preferred Language: Albanian Communication Ability: Effective Visual Impairment: No Limitations Sports Book Server Required: No Beliefs That Will Affect Care: None marital status: Current Living Situation: Spouse current occupational status: retired Other Information That Helps Us Care for You: No Feels Safe at Home: Yes and No Is there a partner from a previous relationship who is making you feel unsafe now?: No Any Concerns about Your Family Situation: No Would You Like to Speak to Someone About Your Situation: No Safety Concerns: Feels Safe At This Time Childhood Exposure to Second-Hand Smoke: No Diet: regular caffeine: Yes Dental Care, Regularly: Yes Physical Activity Frequency: 3-4 Times per Week Seatbelt Use: always Sunscreen Use: Yes Assistive Devices: Glasses Review of Systems Review of Systems: Per HPI Physical Exam Physical Exam: She is alert and oriented x3. Mood affect appear normal. She answered all questions appropriately. HEENT: Sclerae are anicteric. Pupils are equal and reactive to light and accommodation. Extraocular movements were intact. Neuro: Cranial nerves intact Lungs: Lungs are clear to auscultation bilaterally. There are no rales wheezes or rhonchi. She has normal respiratory effort without use of accessory muscles. There is normal pulmonary excursion. Cardiac: The rhythm was regular. S1 and S2 were normal. There are no murmurs on examination. The PMI was not markedly displaced on palpation. Extremities: Patient has bilateral radial pulses that are equal in intensity. There is no evidence cyanosis or clubbing. There was no evidence of significant peripheral edema bilaterally. Skin: There are no rashes noted on examination today. Results & Data Vital Signs (Past 12 Hours) Vital Signs Temp Pulse Resp BP Pulse Ox O2 Del Method 11/25/24 07:48 75 18 117/69 96 Room Air 11/25/24 02:59 36.4 C L 89 19 133/79 95 Room Air 11/24/24 23:16 36.6 C 69 16 122/71 95 Room Air Laboratory Results Abnormal Lab Results 11/24/24 11/24/24 11/24/24 13:07 15:53 19:41 WBC RBC Hgb Hct MCV MCH MCHC RDW Std Deviation RDW Coeff of Romaine Plt Count MPV Immature Gran % (Auto) Neut % (Auto) Lymph % (Auto) [place] % (Auto) Eos % (Auto) Baso % (Auto) Neut # (Auto) Lymph # (Auto) [place] # (Auto) Eos # (Auto) Baso # (Auto) Immature Gran # (Auto) Sodium Potassium Chloride Carbon Dioxide Anion Gap BUN Creatinine Est Cr Clr Drug Dosing eGFR BUN/Creatinine Ratio Glucose POC Glucose 99 Calcium Magnesium Troponin I High Sens 94.2 H* D Urine Color Yellow Urine Appearance Cloudy A Urine pH 6.0 Ur Specific [place] 1.015 Urine Protein Negative Urine Glucose (UA) Negative Urine Ketones 1+ H Urine Blood Negative Urine Nitrite Negative Urine Bilirubin Negative Urine Urobilinogen Negative Ur Leukocyte Esterase Trace H Urine WBC (Auto) 6-10 H Urine RBC (Auto) 0-2 U Hyaline Cast (Auto) 6-10 H U Epithel Cells (Auto) 11-20 H Urine Bacteria (Auto) 2+ H 11/24/24 11/24/24 11/25/24 20:33 22:42 05:45 WBC 11.32 H RBC 3.98 L Hgb 12.9 D Hct 38.0 MCV 95.5 MCH 32.4 MCHC 33.9 RDW Std Deviation 41.4 RDW Coeff of Romaine 11.9 Plt Count 290 MPV 9.7 Immature Gran % (Auto) 0.5 Neut % (Auto) 71.8 Lymph % (Auto) 20.7 [place] % (Auto) 5.9 Eos % (Auto) 0.7 Baso % (Auto) 0.4 Neut # (Auto) 8.13 H Lymph # (Auto) 2.34 [place] # (Auto) 0.67 H Eos # (Auto) 0.08 Baso # (Auto) 0.04 Immature Gran # (Auto) 0.06 Sodium 137 Potassium 3.8 Chloride 107 Carbon Dioxide 25 Anion Gap 5 BUN 14 Creatinine 0.67 D Est Cr Clr Drug Dosing 81.5 eGFR 93.97 BUN/Creatinine Ratio 20.9 H Glucose 87 POC Glucose Calcium 8.8 Magnesium 2.0 Troponin I High Sens 83.1 H* D 74.7 H* 53.5 H* D Urine Color Urine Appearance Urine pH Ur Specific [place] Urine Protein Urine Glucose (UA) Urine Ketones Urine Blood Urine Nitrite Urine Bilirubin Urine Urobilinogen Ur Leukocyte Esterase Urine WBC (Auto) Urine RBC (Auto) U Hyaline Cast (Auto) U Epithel Cells (Auto) Urine Bacteria (Auto) 11/25/24 08:01 WBC RBC Hgb Hct MCV MCH MCHC RDW Std Deviation RDW Coeff of Romaine Plt Count MPV Immature Gran % (Auto) Neut % (Auto) Lymph % (Auto) [place] % (Auto) Eos % (Auto) Baso % (Auto) Neut # (Auto) Lymph # (Auto) [place] # (Auto) Eos # (Auto) Baso # (Auto) Immature Gran # (Auto) Sodium Potassium Chloride Carbon Dioxide Anion Gap BUN Creatinine Est Cr Clr Drug Dosing eGFR BUN/Creatinine Ratio Glucose POC Glucose 128 H Calcium Magnesium Troponin I High Sens Urine Color Urine Appearance Urine pH Ur Specific [place] Urine Protein Urine Glucose (UA) Urine Ketones Urine Blood Urine Nitrite Urine Bilirubin Urine Urobilinogen Ur Leukocyte Esterase Urine WBC (Auto) Urine RBC (Auto) U Hyaline Cast (Auto) U Epithel Cells (Auto) Urine Bacteria (Auto) Diagnostic Findings Echocardiogram 06/19/2024: Normal LV systolic function with ejection fraction of 60 to 65%. Mild LVH. No significant valvular disease. Outpatient monitor 07/21/2024: Symptomatic atrial ectopy without sustained arrhythmias. Multiple symptom reports did not correlate with arrhythmia. PG Care Time/CCT Total # of Minutes Spent Total Time Spent with Patient: Total time spent is greater than 50% in coordination of care (as documented) at patient's floor/unit and/or counseling patient: Coding Level of Care Code 85124 INT INP/OBS CARE 3/75MIN Diagnoses SVT (supraventricular tachycardia) I47.10
[2024-11-25] MEDS: METOPROLOL SUCC 25MG EXT REL TAB PO SCH (11:11)
--- NOTE | 2024-11-25 15:33 | Discharge Summary ---
Date of Service November 25, 2024 Admission HPI Per Admitting Provider Patient is a 69-year-old female with past medical history of hypertension, GERD, diabetes mellitus. She presented today to the ER due to heart palpitations and was found to be in SVT with rates up to 190. She converted into NSR with vagal maneuvers, but then converted back into SVT later in the afternoon. Prior to admission she was given 5mg IV Lopressor and converted back into NSR, rates 70s. She is being admitted for SVT, cardiology to evaluate patient in morning. Patient was seen at bedside. She stated when she woke up at 6 AM she had heart palpitations that felt like butterflies and her heart was racing. She had a similar episode when she required admission in June, however this morning her palpitations were worse. She took her blood pressure and heart rate at home; BP trending between 104/82-205/198, HR trending between 164-190. She did not take any of her home medications this morning. She also endorses dyspnea, nausea, and lightheadedness during the episode that have all now improved. She also had a mild headache in the ED that is resolved. She endorses intermittent chest pain and back pain that is 6/10 at its worst and decreases to 0/10. Patient denies abdominal pain, vomiting, diarrhea, dysuria, numbness, tingling. When she was hospitalized June due to palpitations, she was discharged with a Holter monitor which did show 2 episodes of SVT. She previously followed with [facility] cardiology but recently switched care to [facility] and has not arranged cardiology care. She would like to arrange care with [facility] cardiology. She does not use nicotine products or drink alcohol. She denies past history of cancer or previous VTE. She does not use oxygen at baseline. She did not take her home medications this morning. She had a hysterectomy when she was 24 years old and is on daily, replacement therapy. She wishes to be full code at this time. She is due for her Ozempic tomorrow, discussed that we will hold this during hospitalization. Regarding her leukocytosis 15.26. Denies URI symptoms, denies dysuria or difficulty urinating. She did have a steroid injection in her foot approximately 2 weeks ago. Admission Exam Per Admitting Provider The patient is awake, alert and oriented 3, well developed and well nourished, normocephalic and atraumatic, in no acute distress. Non-toxic appearing. HEENT- EOMI, mucous membranes moist. Hearing grossly intact. Heart-normal S1 and S2. No murmurs, rubs or gallops. Lungs-clear bilaterally, no respiratory distress, no accessory muscle use. Abdomen-normal bowel sounds and soft. No ascites noted. Non-tender. Extremities- no clubbing, cyanosis, or edema. Rheumatologic-normal range of motion. Psychiatric-normal affect. Principal Diagnosis Supraventricular Tachycardia (Atrioventricular Varinder Reentrant Tachycardia) Discharge Exam Constitutional: Sitting comfortably in bed. In no apparent distess Cardiovascular: Regular rate and rhythm. S1 and S2 noted. No rubs, murmurs, or gallops appreciated Pulmonary: Lungs are clear to auscultation in the upper anterior, upper posterior, and lower posterior lung rowley. No crackles, rhonchi, or wheeze. Conversational without shortness of breath. No accessory respiratory muscle usage. Discharge Data Allergies Allergy/AdvReac Type Severity Reaction Status Date / Time codeine Allergy Severe SHORTNESS Verified 11/24/24 10:28 OF BREATH kiwi Allergy Severe ITCHING, Verified 11/24/24 10:28 TONGUE AND LIPS SWELL latex Allergy Severe SHORTNESS Verified 11/24/24 10:28 OF BREATH,MOUTH GOT RED WITH DENTAL WORK/GLOVES Influenza Virus Vaccines Allergy Intermediate Swelling Verified 11/24/24 10:28 of the Eye,rash tetanus toxoid, adsorbed Allergy Intermediate LUMP ON Verified 11/24/24 10:28 ARM AFTER INJECTION Sulfa (Sulfonamide Allergy Mild RASH Verified 11/24/24 10:28 Antibiotics) cefuroxime Allergy Unknown PT DOESN'T Verified 11/24/24 10:28 REMEMBER metoclopramide AdvReac Intermediate SEVERE Verified 11/24/24 10:28 MUSCLE SORENESS morphine AdvReac Intermediate severe n/v Verified 11/24/24 10:28 pravastatin AdvReac Intermediate muscle pain Verified 11/24/24 10:28 yellow jacket Allergy Severe Anaphylaxis Uncoded 11/24/24 10:28 Consultations 11/24/24 14:48 ED Decision to Admit Stat 11/24/24 16:38 Consult Cardiology Routine Ordered Studies 11/24/24 15:05 CT angio chest PE protocol Stat Chest X-Ray 11/24/24 07:58 XR chest 1V portable HISTORY: 69 years-old Female Chest pain, nonspecific COMPARISON: 06/18/2024 TECHNIQUE: AP view of the chest FINDINGS: Cardiac silhouette is mildly enlarged. No pneumothorax, pleural effusion or airspace consolidation. Bones appear grossly intact. IMPRESSION: No acute process. ACT 112: Negative or not required by law. The above report was generated using voice recognition software. It may contain grammatical, syntax or spelling errors. Electronically signed by: Lance Smith M.D. 11/24/2024 8:14 AM Chest CTA 11/24/24 15:05 CT angio chest PE protocol CT DOSE: 756.77 mGy.cm HISTORY: tachycardia, cp, elevated trop, r/o PE. TECHNIQUE: Multiple CTA images of the chest were obtained after the intravenous administration of 115 ml Optiray. Coronal and sagittal MIPS were obtained from the axial data set and were submitted for review. All measurements were obtained according to NASCET criteria. A dose lowering technique was utilized adhering to the principles of ALARA. COMPARISON STUDY: 07/05/2022 FINDINGS: There is a stable small hiatal hernia. There is no pulmonary consolidation, pleural effusion, or pneumothorax. No enlarged adenopathy. No pericardial effusion. No thoracic aortic dissection or aneurysm. No pulmonary embolism. There are mild diffuse thoracic spine degenerative changes. IMPRESSION: No pulmonary embolism or pneumonia. ACT 112: Negative or not required by law. The above report was generated using voice recognition software. It may contain grammatical, syntax or spelling errors. Electronically signed by: Henrik Franklin M.D. 11/24/2024 4:03 PM Hospital Course (1) SVT (supraventricular tachycardia): (2) Elevated troponin: (3) Leukocytosis: (4) Type 2 diabetes mellitus: (5) Hypertension: Nathan Witt is a 69-year-old female with past medical history of hypertension, GERD, diabetes mellitus, and a history of palpitations (s/p Holter showing SVT episodes) who presented to the ED with prolonged palpitations found to have persistent SVT who was admitted for further SVT workup and management. #SVT/AVNRT - Resolved #Elevated Troponin Converted to NSR in the ED with vagal maneuvers; returned to SVT; given IV metoprolol once; remained in NSR for rest of hospitalization Follow-up cardiology appt in a few months; metoprolol succinate 25 mg PO QD (discontinue PRN propranolol) Chest X-ray and CTA: Negative Troponin peaked at 94.2 Continue home aspirin Follow-up with PCP in 1 week #Leukocytosis - Resolved Urine Culture: pinpoint growth without urinary symptoms does not need treatment Leukocytosis resolved CXR negative #T2DM Continue home regimen #Chronic Stable Conditions Hypertension - continue home losartan-HCTZ + metoprolol (above) GERD - continue home PPI + calcium carbonate PRN HRT - continue hormone replacement therapy Total Time Total Time Spent Total Time Spent (In Minutes): >60 minutes Discharge Plan Discharge Items Patient Disposition: Home - Self-Care Reason For Visit: SVT Discharge Diagnosis: supraventricular tachycardia Activity: Resume your previous activity Non-emergency contact: Primary Care Provider Call non-emergency contact if: you have any medication questions, your pain is concerning for you and your temperature is above 101.5 Follow-up/Referrals: Aida Sumner MD [Primary Care Provider] - 12/02/24 11:00 am (Scheduled with Na Murray PA-C on 12/02/23 at 11:00 am) Bulmaro Polo MD [Physician] - Diet: Regular Addtl Attending Provider Instructions: You were admitted to the hospital for supraventricular tachycardia (SVT). You were treated with medications and got better. A discharge summary will be sent to your primary care physician to ensure continuity of care. Please bring this discharge summary with you to your next office appointment so that your provider can review it at that time. Follow-up appointments: * Make a follow-up appointment with your PCP within the next week. It is very important that you follow up with them shortly after discharge from the hospital. * Please make a follow-up with cardiology (Dr. Polo) within the next few months. * Keep all your follow-up appointments as already scheduled. If you cannot make an appointment, notify your provider. Medications: Your medication list has been reviewed and reconciled upon discharge to ensure accuracy and continuity of care. An updated list of all your medications is included with your hospital discharge paperwork. Please review this list closely, and make note of any changes. * We sent a new medication called metoprolol succinate to your pharmacy. Take metoprolol succinate 25 mg once a day. * Stop your propranolol at this time. Will follow-up with cardiology to discuss further. * If you have any issues filling these prescriptions, please call [phone] and ask to leave a message for Dr. Baugh. * Take your medications as instructed; do not skip a dose of your medicines. Make sure all of your doctors know every medicine you are taking (including iidz-pua-yrerxgd medicines, vitamins, and supplements). Call your primary care provider before taking any new medicines (including over- the-counter medicines, vitamins, and supplements), because some of these may interact with your current medications, or may make your symptoms worse. Tell your primary care provider if you cannot afford your medications. CONTACT YOUR PRIMARY CARE PROVIDER if you experience any of the following: * Worsening of symptoms * Fever, chills, or fatigue * Difficulty following your treatment plan, or difficulty taking medications CALL 911 OR GO TO THE EMERGENCY DEPARTMENT if you experience any of the followi ng: * Sudden, severe abdominal pain or nausea/vomiting * Severe chest pain, or chest pain that radiates (moves) to your jaw or arm * Sudden, severe shortness of breath or difficulty breathing Thank you for allowing us to participate in your care. Pending Studies at Discharge: No Stand-Alone Forms: My [facility] [employer], Smoking Cessation Medications and DC Order Prescriptions: New metoprolol succinate 25 mg Tablet Extended Release 24 Hr 25 mg PO QAM 30 Days Qty: 30 0RF Continued estradiol 0.01 % (0.1 mg/gram) cream 0.25 appful vaginal UD Qty: 42.5 3RF Rx Instructions: use 1/4 applicator in vagina twice weekly on Tuesdays and Fridays. ondansetron HCl 4 mg tablet 4 mg PO Q8H PRN (Reason: nausea and vomiting) Qty: 20 0RF Ozempic 2 mg/dose (8 mg/3 mL) pen injector See Rx Instructions .ROUTE .COMPLEX Qty: 9 3RF Dose Instruction: INJECT 2MG SUBCUTANEOUSLY ONCE WEEKLY (EVERY 7 DAYS) Rx Instructions: INJECT 2MG SUBCUTANEOUSLY ONCE WEEKLY (EVERY 7 DAYS). Fri estrogens-methyltestosterone 1.25-2.5 mg tablet 1 tab PO QAM Qty: 90 3RF estradiol 0.5 mg tablet 0.5 mg PO QAM Qty: 90 3RF epinephrine 0.3 mg/0.3 mL auto-injector 0.3 mg subcut UD PRN (Reason: anaphylaxis) Rx Instructions: Pt states this is , need new script. losartan-hydrochlorothiazide 50-12.5 mg tablet 1 tab PO QAM Stool Softener 50 mg Capsule 50 mg PO QAM Tums 300 mg (750 mg) Tablet,Chewable 300 mg PO HS esomeprazole magnesium [Nexium 24HR] 20 mg Capsule,Delayed Release(Dr/Ec) 20 mg PO HS meloxicam 7.5 mg tablet 7.5 mg PO QAM aspirin 81 mg Tablet,Delayed Release (Dr/Ec) 81 mg PO QAM Rx Instructions: On hold due to procedurre Discontinued propranolol 10 mg tablet 10 - 20 mg PO Q6H PRN (Reason: anxiety ) Rx Instructions: 1-2 tabs orally every 6 hours PRN; Discharge Orders: Discharge Order (Routine); Ordered 11/25/24 Ordered By: Meliton Landrum/Other Patient Handouts: Metoprolol Oral Tablet, Supraventricular Tachycardia Tx Admission Data Admit Date/Time: 11/24/24 16:51 Attending Provider: Mesha Ochoa Admit Provider: Stephen Engel Primary Care Provider: Aida Sumner Other Providers: Stephen Engel; Bulmaro Polo Other Interventions: Discharge Summary Assessment (RN) Last Done: 11/25/24 15:37 Supervising Physician Co-Signing Physician Notes Attending Physician Supervision Note: I independently interviewed and examined the patient and verified the no history and physical, reviewed labs and image studies and agree with findings and care plan noted above. 69 year old female presents to the ER with chest pain an palpitation. Noted to b e in SVT in the ER, converted back to NSR and then went back to SVT. Converted to NSR and stayed asymptomatic. vitals noted nad heent nc at mmm breathing unlabored no accessory muscles good effort skin no rashes no pallor or icterus neuro no focal deficits. SVT - metoprolol succinate. outpatient cardio follow up. consider sleep study as outpatient. HTN - continue home meds. Total time spent in discharge process: 20 min
[2024-11-25 15:37] VITALS: BP 149/87; PULSE 68; TEMP 97.7; O2SAT 97
== END 2024-11-25 16:03 | disposition home or self-care (01) ==
LOC: ED 07:29 → EDINP 07:29 → SUATTDRO 16:51 → EDINP 17:18 → 2S 18:46